=== PATIENT | male | born 1935 | race Caucasian/White ===

== ENCOUNTER 2020-07-10 08:52 | Inpatient (IN) | payer MEDICARE ==
[2020-07-10 09:35] VITALS: BP 105/76
[2020-07-10] MEDS ORDERED: QUET50TA5 PO (11:20)
[2020-07-10] MEDS ORDERED: MULT-237 PO (11:20)
[2020-07-10] MEDS ORDERED: LACT1CAP6 PO (11:20)
[2020-07-10] MEDS ORDERED: QUET25TA5 PO (11:20)
[2020-07-10] MEDS ORDERED: ACET500T68 PO ×2 (11:20)
[2020-07-10] MEDS ORDERED: FAMO-63 PO (11:20)
[2020-07-10] MEDS ORDERED: LIDO700A21 TP (11:20)
[2020-07-10] MEDS ORDERED: SENN1TAB62 PO (11:20)
[2020-07-10] MEDS ORDERED: DILT240T8 PO (11:20)
[2020-07-10] MEDS ORDERED: C.DIFF MED SCREEN BY RX. MC ONE (11:34)
[2020-07-10 14:41] VITALS: BP 116/71
[2020-07-10 17:22] LABS: BASO # 0.1 x10^3/uL (0.0-0.2); BASO % 1 % (0-3); EOS # 0.3 x10^3/uL (0.0-0.7); EOS % 5 % (0-3); HEMATOCRIT 40.1 % (39.0-53.0); HEMOGLOBIN 12.8 g/dL (13.0-17.5); LYMPH % 17 % (24-48); MEAN CORPUSCULAR HEMOGLOBIN 27 pg (25-35); MEAN CORPUSCULAR HGB CONC 32 g/dL (31-37); MEAN CORPUSCULAR VOLUME 86 fL (79-100); MONO # 0.5 x10^3/uL (0.0-1.1); MONO % 7 % (0-9); NEUT # 4.2 x10^3uL (1.8-7.7); NEUT % 70 % (31-73); PLATELET COUNT 212 x10^3/uL (140-400); RED BLOOD COUNT 4.69 x10^6/uL (4.30-5.70); RED CELL DISTRIBUTION WIDTH 14.1 % (11.5-14.5); WHITE BLOOD COUNT 6.1 x10^3/uL (4.0-11.0)
[2020-07-10 17:27] LABS: ALBUMIN 2.9 g/dL (3.4-5.0); ALBUMIN/GLOBULIN RATIO 0.6 (1.0-1.7); CALCIUM 9.5 mg/dL (8.5-10.1); CREATININE 1.2 mg/dL (0.7-1.3); MAGNESIUM 2.5 mg/dL (1.8-2.4); POTASSIUM 4.4 mmol/L (3.5-5.1); TOTAL BILIRUBIN 0.4 mg/dL (0.2-1.0); TOTAL PROTEIN 7.4 g/dL (6.4-8.2)
[2020-07-10] MEDS ORDERED: ACETAMINOPHEN 500 MG TABLET PO PRN (18:00)
[2020-07-10 19:38] VITALS: BP 111/83
[2020-07-10] MEDS ORDERED: ACETAMINOPHEN 500 MG TABLET PO SCH (21:00)
[2020-07-10] MEDS ORDERED: SENNOSIDES/DOCUSATE 8.6/50MG TABLET. PO SCH (21:00)
[2020-07-10] MEDS ORDERED: QUEtiapine 50 MG TABLET. PO SCH (21:00)
[2020-07-10] MEDS ORDERED: ENOXAPARIN ** NOTE DOSE ** SYRINGE SQ SCH (21:00)
[2020-07-10] MEDS ORDERED: LACTOBACILLUS RHAMNOSUS GG 1 CAPSULE. PO SCH (21:00)
--- NOTE | 2020-07-10 21:07 | PDOC ---
Exam Note: Wiliam Note: Please also refer to the separate dictated note~for this date of service dictated separately.~Patient seen individually. Discussed the patient with Nursing staff reviewed the chart.~Reviewed interim history and current functioning. Reviewed vital signs,~Labs/ Radiology~and current medications noted below. Continue current treatment with the changes noted in the dictated addendum note Assessment: Vital Signs/I&O: Vital Signs Date Time Temp Pulse Resp B/P (MAP) Pulse Ox O2 Delivery O2 Flow Rate FiO2 07/10/20 19:38 97.3 94 18 111/83 (92) 94 Room Air Labs: Laboratory Tests Test 07/10/20 10:20 07/10/20 16:58 Coronavirus (COVID-19)(PCR) Negative (NEGATIVE) White Blood Count 6.1 x10^3/uL (4.0-11.0) Red Blood Count 4.69 x10^6/uL (4.30-5.70) Hemoglobin 12.8 g/dL (13.0-17.5) L Hematocrit 40.1 % (39.0-53.0) Mean Corpuscular Volume 86 fL (79-100) Mean Corpuscular Hemoglobin 27 pg (25-35) Mean Corpuscular Hemoglobin Concent 32 g/dL (31-37) Red Cell Distribution Width 14.1 % (11.5-14.5) Platelet Count 212 x10^3/uL (140-400) Neutrophils (%) (Auto) 70 % (31-73) Lymphocytes (%) (Auto) 17 % (24-48) L Monocytes (%) (Auto) 7 % (0-9) Eosinophils (%) (Auto) 5 % (0-3) H Basophils (%) (Auto) 1 % (0-3) Neutrophils # (Auto) 4.2 x10^3uL (1.8-7.7) Lymphocytes # (Auto) 1.0 x10^3/uL (1.0-4.8) Monocytes # (Auto) 0.5 x10^3/uL (0.0-1.1) Eosinophils # (Auto) 0.3 x10^3/uL (0.0-0.7) Basophils # (Auto) 0.1 x10^3/uL (0.0-0.2) D-Dimer (Chani) 7.55 mg/L (0.00-0.50) H Sodium Level 133 mmol/L (136-145) L Potassium Level 4.4 mmol/L (3.5-5.1) Chloride Level 100 mmol/L (98-107) Carbon Dioxide Level 24 mmol/L (21-32) Anion Gap 9 (6-14) Blood Urea Nitrogen 16 mg/dL (8-26) Creatinine 1.2 mg/dL (0.7-1.3) Estimated GFR (Cockcroft-Gault) 58.0 BUN/Creatinine Ratio 13 (6-20) Glucose Level 112 mg/dL (70-99) H Calcium Level 9.5 mg/dL (8.5-10.1) Magnesium Level 2.5 mg/dL (1.8-2.4) H Total Bilirubin 0.4 mg/dL (0.2-1.0) Aspartate Amino Transferase (AST) 28 U/L (15-37) Alanine Aminotransferase (ALT) 31 U/L (16-63) Alkaline Phosphatase 109 U/L (46-116) Total Protein 7.4 g/dL (6.4-8.2) Albumin 2.9 g/dL (3.4-5.0) L Albumin/Globulin Ratio 0.6 (1.0-1.7) L Current Medications: Meds: Current Medications Medications (Trade) Dose Ordered Sig/Segnu Route PRN Reason Start Time Stop Time Status Last Admin Dose Admin Acetaminophen (Tylenol) 500 mg QHS PO 07/10/20 21:00 07/10/20 20:01 Quetiapine Fumarate (SEROquel) 50 mg QHS PO 07/10/20 21:00 07/10/20 20:01 Senna/Docusate Sodium (Senna Plus) 1 tab BID PO 07/10/20 21:00 07/10/20 20:01 Lactobacillus Rhamnosus (Culturelle) 1 cap BID PO 07/10/20 21:00 07/10/20 20:01 Enoxaparin Sodium (Lovenox 80mg Syringe) 70 mg Q12HR SQ 07/10/20 21:00 07/10/20 20:02 I have reviewed the current psychotropics carefully including drug interactions. Risk benefit ratio favors no change other than as noted in my dictated progress note. SHANE MCGOWAN MD Jul 10, 2020 21:07
[2020-07-10] MEDS ORDERED: OLANZapine 5 MG TABLET PO SCH (22:00)
[2020-07-10] MEDS ORDERED: OLANZapine 2.5 MG TABLET PO PRN (22:00)
[2020-07-10] MEDS ORDERED: OLANZapine 5 MG TABLET PO ONE (22:15)
[2020-07-10] MEDS ORDERED: OLAN2.5T3 PO (23:53)
[2020-07-10] MEDS ORDERED: ENOX40DI SQ (23:55)
[2020-07-11] MEDS ORDERED: CONTRAST GIVEN. MC PRN (00:30)
[2020-07-11] MEDS ORDERED: IOHEXOL 350 MG/ML 100 ML VIAL. IV ONE (01:00)
[2020-07-11] MEDS ORDERED: FAMOTIDINE 20 MG TABLET PO SCH (07:30)
[2020-07-11] MEDS ORDERED: PRENATAL MULTIVITAMIN TABLET. PO SCH (09:00)
[2020-07-11] MEDS ORDERED: LIDOCAINE (700MG/PATCH) PATCH. TP SCH (09:00)
[2020-07-11] MEDS ORDERED: QUEtiapine 25 MG TABLET. PO SCH (09:00)
[2020-07-11 12:22] LABS: THYROID STIM HORMONE (TSH) 1.024 uIU/mL (0.358-3.740)
[2020-07-12 02:06] LABS: HEMOGLOBIN A1C 5.9 % (4.8-5.6)
--- NOTE | 2020-07-12 07:43 | PDOC ---
Exam Note: Wiliam Note: This note is a late entry for 07/10/2020 covers elements not covered in my initial note. Subjective: The patient is an 83-year-old male referred by Dr. Rodriges after he was admitted from long-term facility on account of increase in agitation and aggression within the context of his significant major neurocognitive disorder Alzheimer vascular with delusion, depression. He had been resistant, refusing cares, verbally aggressive, disruptive, unmanageable and had failed outpatient interventions. He was accepted for the [facility] admitted to [address] [place] [address] till his Covid screen returns negative before transition to [facility]. Review of Systems: No CV, , pulmonary, eye system symptoms on review. Mental Status Exam: The patient was seen individually evening of 07/10 in room 123. Insight and judgment, recent and remote memory, attention and concentration, fund of knowledge is poor consistent with his diagnoses. He is oriented to himself. Laboratory Data: Reviewed. Impression: Major neurocognitive disorder Alzheimer, vascular with delusion, depression, behavioral disturbance. Anxiety disorder unspecified. Impulse control disorder unspecified. Plan: Continue the patient on his current psychotropics. Transition to [facility] once Covid screen is negative and he is medically stable. Assessment: Vital Signs/I&O: Vital Signs Date Time Temp Pulse Resp B/P (MAP) Pulse Ox O2 Delivery O2 Flow Rate FiO2 07/10/20 19:38 97.3 94 18 111/83 (92) 94 Room Air Current Medications: I have reviewed the current psychotropics carefully including drug interactions. Risk benefit ratio favors no change other than as noted in my dictated progress note. Diagnosis: Problems: (1) Major neurocognitive disorder (2) Dementia in Alzheimer's disease with delusions (3) Dementia in Alzheimer's disease with depression (4) Dementia of the Alzheimer's type with early onset with behavioral disturbance (5) Dementia, vascular, with delusions (6) Dementia, vascular, with depression (7) Anxiety disorder, unspecified (8) Impulse control disorder, unspecified SHANE MCGOWAN MD Jul 12, 2020 07:43
[2020-07-12] MEDS ORDERED: TRAZ-120 PO (12:24)
== END 2020-07-11 01:32 | DRG 640 ==
LOC: 1 SOUTH 09:25
PROVIDERS: ADMIT Internal Medicine; ATTEND Internal Medicine
DX: E87.1 Hypo-osmolality and hyponatremia (principal); E43 Unspecified severe protein-calorie malnutrition; F02.81 Dementia in other diseases classified elsewhere, unspecified severity, with behavioral disturbance; G30.9 Alzheimer's disease, unspecified; Z20.828 Contact with and (suspected) exposure to other viral communicable diseases; F01.50 Vascular dementia, unspecified severity, without behavioral disturbance, psychotic disturbance, mood disturbance, and anxiety; F41.9 Anxiety disorder, unspecified; F63.9 Impulse disorder, unspecified; F32.9 Major depressive disorder, single episode, unspecified
CPT/HCPCS: 36415; 80053; 80061; 82607; 83036; 83735; 84443; 85025; 85379; 86592; J1650; U0003

== ENCOUNTER 2020-07-11 01:35 | Inpatient (IN) | payer MEDICARE ==
[~2020-07-11] VITALS: Ht 162.6 cm; Wt 64.3 kg
[~2020-07-11 01:35] MED LIST: ACET500T68 PO; DILT240T8 PO; ENOX40DI SQ; FAMO-63 PO; LACT1CAP6 PO; LIDO700A21 TP; MULT-237 PO; OLAN2.5T3 PO; QUET25TA5 PO; QUET50TA5 PO; SENN1TAB62 PO
[2020-07-11 01:48] VITALS: BP 106/64
[2020-07-11] MEDS ORDERED: ACETAMINOPHEN 500 MG TABLET PO PRN (02:00)
[2020-07-11] MEDS ORDERED: MAG HYDROX/AL HYDROX/SIMETH 30 ML ORAL.SUSP PO PRN (02:15)
[2020-07-11] MEDS ORDERED: METHYL SALICYLATE/MENTHOL TOPICAL OINTMENT 57GM TUBE. TP PRN (02:15)
[2020-07-11] MEDS ORDERED: ACETAMINOPHEN 325 MG TABLET PO PRN (02:15)
[2020-07-11] MEDS ORDERED: MAGNESIUM HYDROXIDE 2,400 MG/30 ML ORAL.SUSP. PO PRN (02:15)
[2020-07-11] MEDS ORDERED: ENOXAPARIN 40 MG/0.4 ML SYRINGE. SQ SCH (02:15)
[2020-07-11] MEDS ORDERED: ANTI-COAG MONITOR BY PHARMACY. MC PRN (02:15)
[2020-07-11 06:00] VITALS: BP 137/71
[2020-07-11] MEDS: LACTOBACILLUS RHAMNOSUS GG 1 CAPSULE. PO SCH ×2 (08:04→20:04)
[2020-07-11] MEDS: FAMOTIDINE 20 MG TABLET PO SCH ×2 (08:04→17:07)
[2020-07-11] MEDS: MULTIVITAMIN with MINERAL TABLET. PO SCH (08:04)
[2020-07-11] MEDS: SENNOSIDES/DOCUSATE 8.6/50MG TABLET. PO SCH ×2 (08:05→20:05)
[2020-07-11] MEDS: QUEtiapine 25 MG TABLET. PO SCH ×2 (08:05→12:33)
[2020-07-11] MEDS: LIDOCAINE (700MG/PATCH) PATCH. TP SCH (08:05)
[2020-07-11] MEDS ORDERED: ENOXAPARIN ** NOTE DOSE ** SYRINGE SQ SCH (09:00)
[2020-07-11 09:25] LABS: BASO % 1 % (0-3); EOS # 0.3 x10^3/uL (0.0-0.7); EOS % 6 % (0-3); HEMATOCRIT 38.9 % (39.0-53.0); HEMOGLOBIN 12.5 g/dL (13.0-17.5); LYMPH # 0.9 x10^3/uL (1.0-4.8); LYMPH % 17 % (24-48); MEAN CORPUSCULAR HEMOGLOBIN 27 pg (25-35); MEAN CORPUSCULAR HGB CONC 32 g/dL (31-37); MEAN CORPUSCULAR VOLUME 85 fL (79-100); MONO # 0.4 x10^3/uL (0.0-1.1); MONO % 8 % (0-9); NEUT # 3.6 x10^3uL (1.8-7.7); NEUT % 68 % (31-73); PLATELET COUNT 214 x10^3/uL (140-400); RED BLOOD COUNT 4.59 x10^6/uL (4.30-5.70); WHITE BLOOD COUNT 5.3 x10^3/uL (4.0-11.0)
[2020-07-11 09:53] LABS: ALBUMIN 2.8 g/dL (3.4-5.0); ALBUMIN/GLOBULIN RATIO 0.6 (1.0-1.7); CALCIUM 9.7 mg/dL (8.5-10.1); CREATININE 1.3 mg/dL (0.7-1.3); GFR 52.9; MAGNESIUM 2.6 mg/dL (1.8-2.4); TOTAL BILIRUBIN 0.3 mg/dL (0.2-1.0); TOTAL PROTEIN 7.5 g/dL (6.4-8.2)
[2020-07-11 12:32] LABS: THYROID STIM HORMONE (TSH) 1.065 uIU/mL (0.358-3.740)
--- NOTE | 2020-07-11 12:37 | EKG ---
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
[2020-07-11 14:35] VITALS: BP 118/73
[2020-07-11] MEDS ORDERED: traZODone 50 MG TABLET. PO PRN (15:45)
--- NOTE | 2020-07-11 20:55 | PDOC ---
Exam Note: Wiliam Note: Please also refer to the separate dictated note~for this date of service dictated separately.~Patient seen individually. Discussed the patient with Nursing staff reviewed the chart.~Reviewed interim history and current functioning. Reviewed vital signs,~Labs/ Radiology~and current medications noted below. Continue current treatment with the changes noted in the dictated addendum note Assessment: Vital Signs/I&O: Vital Signs Date Time Temp Pulse Resp B/P (MAP) Pulse Ox O2 Delivery O2 Flow Rate FiO2 07/11/20 14:35 97.8 100 19 118/73 (88) 92 07/11/20 06:00 Room Air Labs: Laboratory Tests Test 07/11/20 09:10 White Blood Count 5.3 x10^3/uL (4.0-11.0) Red Blood Count 4.59 x10^6/uL (4.30-5.70) Hemoglobin 12.5 g/dL (13.0-17.5) L Hematocrit 38.9 % (39.0-53.0) L Mean Corpuscular Volume 85 fL (79-100) Mean Corpuscular Hemoglobin 27 pg (25-35) Mean Corpuscular Hemoglobin Concent 32 g/dL (31-37) Red Cell Distribution Width 14.0 % (11.5-14.5) Platelet Count 214 x10^3/uL (140-400) Neutrophils (%) (Auto) 68 % (31-73) Lymphocytes (%) (Auto) 17 % (24-48) L Monocytes (%) (Auto) 8 % (0-9) Eosinophils (%) (Auto) 6 % (0-3) H Basophils (%) (Auto) 1 % (0-3) Neutrophils # (Auto) 3.6 x10^3uL (1.8-7.7) Lymphocytes # (Auto) 0.9 x10^3/uL (1.0-4.8) L Monocytes # (Auto) 0.4 x10^3/uL (0.0-1.1) Eosinophils # (Auto) 0.3 x10^3/uL (0.0-0.7) Basophils # (Auto) 0.0 x10^3/uL (0.0-0.2) Sodium Level 136 mmol/L (136-145) Potassium Level 4.0 mmol/L (3.5-5.1) Chloride Level 102 mmol/L (98-107) Carbon Dioxide Level 25 mmol/L (21-32) Anion Gap 9 (6-14) Blood Urea Nitrogen 14 mg/dL (8-26) Creatinine 1.3 mg/dL (0.7-1.3) Estimated GFR (Cockcroft-Gault) 52.9 BUN/Creatinine Ratio 11 (6-20) Glucose Level 100 mg/dL (70-99) H Calcium Level 9.7 mg/dL (8.5-10.1) Magnesium Level 2.6 mg/dL (1.8-2.4) H Iron Level 31 ug/dL (65-175) L Total Iron Binding Capacity 168 ug/dL (250-450) L Iron Saturation 18 % (15-34) Total Bilirubin 0.3 mg/dL (0.2-1.0) Aspartate Amino Transferase (AST) 28 U/L (15-37) Alanine Aminotransferase (ALT) 29 U/L (16-63) Alkaline Phosphatase 111 U/L (46-116) Total Protein 7.5 g/dL (6.4-8.2) Albumin 2.8 g/dL (3.4-5.0) L Albumin/Globulin Ratio 0.6 (1.0-1.7) L Triglycerides Level 113 mg/dL (0-150) Cholesterol Level 149 mg/dL (0-200) LDL Cholesterol, Calculated 92 mg/dL (0-100) VLDL Cholesterol, Calculated 22 mg/dL (0-40) Non-HDL Cholesterol Calculated 114 mg/dL (0-129) HDL Cholesterol 35 mg/dL (40-60) L Cholesterol/HDL Ratio 4.0 Thyroid Stimulating Hormone (TSH) 1.065 uIU/mL (0.358-3.740) Current Medications: Meds: Current Medications Medications (Trade) Dose Ordered Sig/Segun Route PRN Reason Start Time Stop Time Status Last Admin Dose Admin Olanzapine (ZyPREXA ZYDIS) 2.5 mg PRN Q2HR PRN PO ANXIETY / AGITATION 07/11/20 02:00 07/11/20 20:24 Acetaminophen (Tylenol) 500 mg QHS PO 07/11/20 21:00 07/11/20 20:05 Famotidine (Pepcid) 20 mg BIDBFRMEAL PO 07/11/20 07:30 07/11/20 17:07 Lidocaine (Lidoderm) 1 patch DAILY TP 07/11/20 09:00 07/11/20 08:05 Senna/Docusate Sodium (Senna Plus) 1 tab BID PO 07/11/20 09:00 07/11/20 20:05 Diltiazem HCl (Cardizem 24hr Cd) 240 mg DAILY PO 07/11/20 09:00 07/11/20 08:05 Lactobacillus Rhamnosus (Culturelle) 1 cap BID PO 07/11/20 09:00 07/11/20 20:04 Multivitamins/ Calcium (Thera-M Plus) 1 tab DAILY PO 07/11/20 09:00 07/11/20 08:04 Quetiapine Fumarate (SEROquel) 25 mg BID92 PO 07/11/20 09:00 07/11/20 15:51 DC 07/11/20 12:33 Miscellaneous ([facility] Removal) [facility] 07/11/[facility] 21:00 07/11/20 20:04 I have reviewed the current psychotropics carefully including drug interactions. Risk benefit ratio favors no change other than as noted in my dictated progress note. SHANE MCGOWAN MD Jul 11, 2020 20:55
[2020-07-11] MEDS ORDERED: ACETAMINOPHEN 500 MG TABLET PO SCH (21:00)
[2020-07-11] MEDS ORDERED: QUEtiapine 50 MG TABLET. PO SCH (21:00)
[2020-07-11] MEDS ORDERED: PATCH REMOVAL. MC SCH (21:00)
[2020-07-11] MEDS ORDERED: IOHEXOL 350 MG/ML 100 ML VIAL. IV ONE (22:00)
[2020-07-11] MEDS ORDERED: CONTRAST GIVEN. MC PRN (22:00)
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
[2020-07-12 05:37] LABS: THYROXINE 6.8 ug/dL (4.5-12.0)
[2020-07-12 06:00] VITALS: BP 112/59
[2020-07-12] MEDS: FAMOTIDINE 20 MG TABLET PO SCH ×3 (07:30→16:30)
[2020-07-12] MEDS: LIDOCAINE (700MG/PATCH) PATCH. TP SCH (07:32)
[2020-07-12] MEDS: SENNOSIDES/DOCUSATE 8.6/50MG TABLET. PO SCH ×2 (09:00→09:14)
[2020-07-12] MEDS: MULTIVITAMIN with MINERAL TABLET. PO SCH ×2 (09:00→09:14)
[2020-07-12] MEDS: LACTOBACILLUS RHAMNOSUS GG 1 CAPSULE. PO SCH ×2 (09:00→09:14)
[2020-07-12 09:15] LABS: BILIRUBIN,URINE NEG (NEG); CLARITY,URINE CLEAR; COLOR,URINE YELLOW; GLUCOSE,URINE NEG (NEG); NITRITE,URINE NEG (NEG); UROBILINOGEN,URINE 0.2 mg/dL (0.2 mg/dL)
[2020-07-12 09:16] LABS: BACTERIA,URINE 0 /HPF (0-FEW); RBC,URINE 0 /HPF (0-2); SQUAMOUS EPITHELIAL CELL,UR FEW /LPF; WBC,URINE 0 /HPF (0-4)
--- NOTE | 2020-07-12 12:04 | RAD ---
EXAM: CT chest with contrast - pulmonary embolus protocol CLINICAL HISTORY: cough, elevated D-Dimer COMPARISON: None. TECHNIQUE: CT of the chest following the administration of intravenous contrast during the pulmonary arterial phase. Axial, coronal and sagittal reformatted images were generated including MIP images. ---PQRS compliance statement - One or more of the following individualized dose reduction techniques were utilized for this study: 1. Automated exposure control 2. Adjustment of the mA and/or kV according to patient size 3. Use of iterative reconstruction technique--- FINDINGS: CHEST: Diagnostic quality: Adequate contrast bolus although motion artifact limits evaluation particularly in the peripheries and lung bases.. Pulmonary emboli: No pulmonary emboli to the level of the proximal segmental branches. More peripheral vessels are not well assessed. Right heart strain: None Pulmonary arteries: Normal in caliber. Heart is not enlarged. Coronary artery calcifications are seen. No pericardial effusion. Trace bilateral pleural effusions. No axillary lymphadenopathy. Precarinal lymph node measures 1.2 x 1.1 cm. Moderate to large left pneumothorax with flattening of the left hemidiaphragm, without mediastinal shift. Advanced emphysematous changes bilaterally. Linear and bandlike opacities at dependent left lower lobe likely scarring/atelectasis. Vague ground glass opacities right lower lobe. 7 mm right upper lobe lung nodule (series 3 image 23) Visualized Upper abdomen: Mild left adrenal gland thickening. Liver is mildly nodular in contour, possibly cirrhosis. Bones: No aggressive osseous lesion is seen. Multiple degenerative changes of the spine are noted. IMPRESSION: 1. Moderate to large left pneumothorax 2. No definite pulmonary embolus the level of the proximal subsegmental branches, more peripheral vessels are not well assessed. 3. Bilateral emphysematous change. Groundglass opacity in the left lower lobe and solid nodule in the right upper lobe, recommend follow-up CT in 6 months. 4. Borderline enlarged precarinal lymph node may be reactive. 5. Liver is mildly nodular in contour, likely cirrhosis. Findings of moderate to large left pneumothorax discussed with patient's nurse Tobias at 11:52 AM 07/12/2020 who would notify the patient's physician. FOR INTERNAL CODING PURPOSES RESULT CODE: (C) Electronically signed by: Paul Herrera MD (07/12/2020 12:01 PM) [facility]
[2020-07-12] MEDS ORDERED: TRAZ-120 PO (12:24)
[2020-07-12 15:54] VITALS: BP 104/71
--- NOTE | 2020-07-12 20:31 | PDOC ---
Exam Note: Wiliam Note: Please also refer to the separate dictated note~for this date of service dictated separately.~Patient seen individually. Discussed the patient with Nursing staff reviewed the chart.~Reviewed interim history and current functioning. Reviewed vital signs,~Labs/ Radiology~and current medications noted below. Continue current treatment with the changes noted in the dictated addendum note Assessment: Vital Signs/I&O: Vital Signs Date Time Temp Pulse Resp B/P (MAP) Pulse Ox O2 Delivery O2 Flow Rate FiO2 07/12/20 15:54 97.9 94 20 104/71 (82) 94 Room Air I & O 07/11/20 07/11/20 07/12/20 15:00 23:00 07:00 Intake Total 600 ml Balance 600 ml Labs: Laboratory Tests Test 07/12/20 07:20 Urine Collection Type Unknown Urine Color Yellow Urine Clarity Clear Urine pH 7.0 Urine Specific [place] 1.020 Urine Protein Neg (NEG-TRACE) Urine Glucose (UA) Neg mg/dL (NEG) Urine Ketones (Stick) Neg mg/dL (NEG) Urine Blood Neg (NEG) Urine Nitrite Neg (NEG) Urine Bilirubin Neg (NEG) Urine Urobilinogen Dipstick 0.2 mg/dL (0.2 mg/dL) Urine Leukocyte Esterase Neg (NEG) Urine RBC 0 /HPF (0-2) Urine WBC 0 /HPF (0-4) Urine Squamous Epithelial Cells Few /LPF Urine Transitional Epithelial Cells Occ /LPF Urine Bacteria 0 /HPF (0-FEW) Current Medications: Meds: Current Medications Medications (Trade) Dose Ordered Sig/Segun Route PRN Reason Start Time Stop Time Status Last Admin Dose Admin Acetaminophen (Tylenol) 500 mg QHS PO 07/11/20 21:00 07/12/20 18:49 DC 07/11/20 20:05 Miscellaneous (Lidoderm Patch Removal) 1 ea QHS [facility] 07/11/20 21:00 07/12/20 18:49 DC 07/11/20 20:04 Iohexol (Omnipaque 350 Mg/ml) 75 ml 1X ONCE IV 07/11/20 22:00 07/11/20 22:01 DC 07/11/20 22:07 I have reviewed the current psychotropics carefully including drug interactions. Risk benefit ratio favors no change other than as noted in my dictated progress note. Diagnosis: Problems: (1) Impulse control disorder, unspecified (2) Anxiety disorder, unspecified (3) Dementia, vascular, with depression (4) Dementia, vascular, with delusions (5) Dementia in Alzheimer's disease with depression (6) Dementia in Alzheimer's disease with delusions (7) Dementia of the Alzheimer's type with early onset with behavioral disturbance (8) Major neurocognitive disorder SHANE MCGOWAN MD Jul 12, 2020 20:31
--- NOTE | 2020-07-13 08:01 | PDOC ---
Exam Note: Wiliam Note: This note is a late entry for 07/12/2020 covers elements not covered in my initial note. Subjective: The patient was seen face to face in the evening of 07/12/2020 with Shane CEBALLOS. Discussed with nursing staff, reviewed the chart. The patient did not sleep at all last night. He has had a left pneumothorax. He is being transferred to [facility] per Dr. Rodriges. He has been in the [facility]. Review of Systems: No CV, , pulmonary, eye system symptoms on review. Mental Status Exam: The patient is oriented to himself. Insight and judgment, recent and remote memory, attention and concentration, fund of knowledge is poor consistent with his diagnoses. Laboratory Data: Reviewed. Impression: Major neurocognitive disorder Alzheimer, vascular with delusion, depression, behavioral disturbance. Anxiety disorder unspecified. Impulse control disorder unspecified. Plan: No change from initial note. Make further adjustments as clinically indicated. He will be transferred to [facility] later today for his pneumothorax. Assessment: Vital Signs/I&O: Vital Signs Date Time Temp Pulse Resp B/P (MAP) Pulse Ox O2 Delivery O2 Flow Rate FiO2 07/12/20 15:54 97.9 94 20 104/71 (82) 94 Room Air I & O 07/12/20 07/12/20 07/13/20 15:00 23:00 07:00 Intake Total 0 ml 180 ml Balance 0 ml 180 ml Current Medications: I have reviewed the current psychotropics carefully including drug interactions. Risk benefit ratio favors no change other than as noted in my dictated progress note. Diagnosis: Problems: (1) Impulse control disorder, unspecified (2) Anxiety disorder, unspecified (3) Dementia, vascular, with depression (4) Dementia, vascular, with delusions (5) Dementia in Alzheimer's disease with depression (6) Dementia in Alzheimer's disease with delusions (7) Dementia of the Alzheimer's type with early onset with behavioral disturbance (8) Major neurocognitive disorder SHANE MCGOWAN MD Jul 13, 2020 08:01
--- NOTE | 2020-07-13 22:56 | DS ---
DATE OF DISCHARGE: 07/12/2020 DISCHARGE SUMMARY/PSYCHIATRIC PROGRESS NOTE This late entry date of service 07/12/2020 covers elements not covered in my initial note. REASON FOR ADMISSION: Please refer to the admission history for details. Briefly, the patient is an 84-year-old male who initially referred to us from [facility] on account of worsening confusion, consequent to his major neurocognitive disorder, Alzheimer, vascular with delusion, depression, behavioral disturbance; anxiety disorder, unspecified; impulse control disorder, unspecified. He was on the med/surg unit till he was COVID screened negative, then transitioned to our unit on 07/11/2020 for psychiatric stabilization. He had a drop in his appetite, 20-pound weight loss, marked insomnia, disrobing, wandering the unit, verbally aggressive, threatening to break the arm of the PORTABLE SAWYER, became combative with hitting, choking and swinging arms. SIGNIFICANT FINDINGS AND CLINICAL COURSE: Following admission, the patient was seen daily during his brief hospitalization by myself from a psychiatric standpoint, medical followup with Dr. Rodriges/Dr. Almanza. The related that approximately 2 weeks back, the patient had a spontaneous pneumothorax and since that his mentation has been significantly impaired with significant short-term memory deficits, agitation, delusions, aggression. He spent overnight and then on 07/12/2020, he was again found to have pneumothorax and transferred to [facility] per Dr. Rodriges for a pulmonary consult and specific interventions. REVIEW OF SYSTEMS: Prior to discharge, 07/12/2020, no CV, , pulmonary, eye, ENT system symptoms on review. MENTAL STATUS EXAM: Oriented to himself. Insight, judgment, recent and remote memory, attention, concentration, fund of knowledge poor, consistent with his diagnosis. FINAL DIAGNOSES: Major neurocognitive disorder, Alzheimer, vascular with delusion, depression, behavioral disturbance; anxiety disorder, unspecified; impulse control disorder, unspecified; possible spontaneous pneumothorax. Rest unchanged from admission. DISCHARGE MEDICATIONS: Please refer to the MRAD. We would be happy to reassess him to return to our unit if he meets criteria at that time once he has been medically stabilized at [facility]. Time for discharge day management greater than 30 minutes. MAN Dolores MCGOWAN MD DR: BC/pasquale JOB#: [id number] / [id number]
== END 2020-07-12 18:48 | disposition short-term general hospital (02) | DRG 56 ==
LOC: GEROPSY 01:35
PROVIDERS: ADMIT Psychiatry & Neurology Psychiatry; ATTEND Psychiatry & Neurology Psychiatry
DX: G30.9 Alzheimer's disease, unspecified (principal); E43 Unspecified severe protein-calorie malnutrition; F01.51 Vascular dementia, unspecified severity, with behavioral disturbance; F02.81 Dementia in other diseases classified elsewhere, unspecified severity, with behavioral disturbance; J93.83 Other pneumothorax; F32.9 Major depressive disorder, single episode, unspecified; F41.9 Anxiety disorder, unspecified; Z96.653 Presence of artificial knee joint, bilateral; F63.9 Impulse disorder, unspecified; G47.00 Insomnia, unspecified; J43.9 Emphysema, unspecified; K21.9 Gastro-esophageal reflux disease without esophagitis; Z66 Do not resuscitate; Z80.1 Family history of malignant neoplasm of trachea, bronchus and lung; Z82.3 Family history of stroke; Z82.49 Family history of ischemic heart disease and other diseases of the circulatory system; Z87.891 Personal history of nicotine dependence; Z91.83 Wandering in diseases classified elsewhere; Z68.24 Body mass index [BMI] 24.0-24.9, adult
CPT/HCPCS: 36415; 71275; 80053; 80061; 81001; 82306; 82607; 83540; 83550; 83735; 84436; 84443; 84480; 85025; 86592; 93005; 99285; Q9967

== ENCOUNTER 2020-07-14 12:15 | Inpatient (IN) | payer MEDICARE ==
[~2020-07-14] VITALS: Ht 162.6 cm; Wt 77.4 kg
[~2020-07-14 12:15] MED LIST changes: +TRAZ-120 PO
[2020-07-14] MEDS ORDERED: ACETAMINOPHEN 500 MG TABLET PO PRN (12:45)
[2020-07-14] MEDS ORDERED: OLANZapine 2.5 MG TABLET PO PRN (12:45)
[2020-07-14] MEDS ORDERED: MAGNESIUM HYDROXIDE 2,400 MG/30 ML ORAL.SUSP. PO PRN (13:15)
[2020-07-14] MEDS ORDERED: MAG HYDROX/AL HYDROX/SIMETH 30 ML ORAL.SUSP PO PRN (13:15)
[2020-07-14 16:30] VITALS: BP 101/69
[2020-07-14 16:51] LABS: BASO % 0 % (0-3); EOS % 0 % (0-3); HEMATOCRIT 40.6 % (39.0-53.0); HEMOGLOBIN 13.1 g/dL (13.0-17.5); LYMPH # 0.7 x10^3/uL (1.0-4.8); LYMPH % 7 % (24-48); MEAN CORPUSCULAR HEMOGLOBIN 28 pg (25-35); MEAN CORPUSCULAR HGB CONC 32 g/dL (31-37); MEAN CORPUSCULAR VOLUME 85 fL (79-100); MONO # 0.5 x10^3/uL (0.0-1.1); MONO % 5 % (0-9); NEUT # 8.4 x10^3uL (1.8-7.7); NEUT % 87 % (31-73); PLATELET COUNT 222 x10^3/uL (140-400); RED BLOOD COUNT 4.78 x10^6/uL (4.30-5.70); WHITE BLOOD COUNT 9.7 x10^3/uL (4.0-11.0)
--- NOTE | 2020-07-14 16:59 | EKG ---
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
[2020-07-14 17:10] LABS: ALBUMIN 2.9 g/dL (3.4-5.0); ALBUMIN/GLOBULIN RATIO 0.6 (1.0-1.7); CALCIUM 9.2 mg/dL (8.5-10.1); CREATININE 1.5 mg/dL (0.7-1.3); GFR 44.8; MAGNESIUM 2.3 mg/dL (1.8-2.4); POTASSIUM 4.4 mmol/L (3.5-5.1); TOTAL BILIRUBIN 0.5 mg/dL (0.2-1.0); TOTAL PROTEIN 7.7 g/dL (6.4-8.2)
[2020-07-14] MEDS ORDERED: SENNOSIDES/DOCUSATE 8.6/50MG TABLET. PO PRN (19:30)
--- NOTE | 2020-07-14 20:54 | PDOC ---
Exam Note: Wiliam Note: Please also refer to the separate dictated note~for this date of service dictated separately.~Patient seen individually. Discussed the patient with Nursing staff reviewed the chart.~Reviewed interim history and current functioning. Reviewed vital signs,~Labs/ Radiology~and current medications noted below. Continue current treatment with the changes noted in the dictated addendum note Assessment: Vital Signs/I&O: Vital Signs Date Time Temp Pulse Resp B/P (MAP) Pulse Ox O2 Delivery O2 Flow Rate FiO2 07/14/20 16:30 98.4 69 18 101/69 (80) 96 Labs: Laboratory Tests Test 07/14/20 14:36 White Blood Count 9.7 x10^3/uL (4.0-11.0) Red Blood Count 4.78 x10^6/uL (4.30-5.70) Hemoglobin 13.1 g/dL (13.0-17.5) Hematocrit 40.6 % (39.0-53.0) Mean Corpuscular Volume 85 fL (79-100) Mean Corpuscular Hemoglobin 28 pg (25-35) Mean Corpuscular Hemoglobin Concent 32 g/dL (31-37) Red Cell Distribution Width 14.0 % (11.5-14.5) Platelet Count 222 x10^3/uL (140-400) Neutrophils (%) (Auto) 87 % (31-73) H Lymphocytes (%) (Auto) 7 % (24-48) L Monocytes (%) (Auto) 5 % (0-9) Eosinophils (%) (Auto) 0 % (0-3) Basophils (%) (Auto) 0 % (0-3) Neutrophils # (Auto) 8.4 x10^3uL (1.8-7.7) H Lymphocytes # (Auto) 0.7 x10^3/uL (1.0-4.8) L Monocytes # (Auto) 0.5 x10^3/uL (0.0-1.1) Eosinophils # (Auto) 0.0 x10^3/uL (0.0-0.7) Basophils # (Auto) 0.0 x10^3/uL (0.0-0.2) D-Dimer (Chani) > 19.00 mg/L (0.00-0.50) H Sodium Level 136 mmol/L (136-145) Potassium Level 4.4 mmol/L (3.5-5.1) Chloride Level 103 mmol/L (98-107) Carbon Dioxide Level 25 mmol/L (21-32) Anion Gap 8 (6-14) Blood Urea Nitrogen 13 mg/dL (8-26) Creatinine 1.5 mg/dL (0.7-1.3) H Estimated GFR (Cockcroft-Gault) 44.8 BUN/Creatinine Ratio 9 (6-20) Glucose Level 115 mg/dL (70-99) H Calcium Level 9.2 mg/dL (8.5-10.1) Magnesium Level 2.3 mg/dL (1.8-2.4) Total Bilirubin 0.5 mg/dL (0.2-1.0) Aspartate Amino Transferase (AST) 29 U/L (15-37) Alanine Aminotransferase (ALT) 30 U/L (16-63) Alkaline Phosphatase 117 U/L (46-116) H Total Protein 7.7 g/dL (6.4-8.2) Albumin 2.9 g/dL (3.4-5.0) L Albumin/Globulin Ratio 0.6 (1.0-1.7) L Current Medications: I have reviewed the current psychotropics carefully including drug interactions. Risk benefit ratio favors no change other than as noted in my dictated progress note. Diagnosis: Problems: (1) Impulse control disorder, unspecified (2) Anxiety disorder, unspecified (3) Dementia, vascular, with depression (4) Dementia, vascular, with delusions (5) Dementia in Alzheimer's disease with depression (6) Dementia in Alzheimer's disease with delusions (7) Dementia of the Alzheimer's type with early onset with behavioral disturbance (8) Major neurocognitive disorder SHANE MCGOWAN MD Jul 14, 2020 20:54
[2020-07-14] MEDS: ACETAMINOPHEN 500 MG TABLET PO SCH (21:09)
[2020-07-14] MEDS: LACTOBACILLUS RHAMNOSUS GG 1 CAPSULE. PO SCH (21:09)
[2020-07-14] MEDS: FAMOTIDINE 20 MG TABLET PO SCH (21:09)
[2020-07-15 06:16] LABS: THYROXINE 6.3 ug/dL (4.5-12.0)
[2020-07-15 07:17] VITALS: BP 133/82
[2020-07-15] MEDS: LIDOCAINE (700MG/PATCH) PATCH. TP SCH (09:00)
[2020-07-15] MEDS: FAMOTIDINE 20 MG TABLET PO SCH ×2 (09:00→21:28)
[2020-07-15] MEDS: LACTOBACILLUS RHAMNOSUS GG 1 CAPSULE. PO SCH ×2 (09:04→21:28)
[2020-07-15] MEDS: MULTIVITAMIN with MINERAL TABLET. PO SCH (09:04)
--- NOTE | 2020-07-15 14:49 | HP ---
ADMIT DATE: 07/14/2020 PSYCHIATRIC ADMISSION HISTORY/EVALUATION This is a late entry, date of service 07/14/2020 covers elements not covered in my initial note. IDENTIFYING DATA: The patient is an 84-year-old male who returns back to us from [facility] after he was referred there for spontaneous pneumothorax. Reportedly, this was not confirmed and he returns back to us since he remains paranoid, confused, agitated. He was initially referred [facility] from [facility] on account of marked agitation, cursing at staff, pulling leads himself. He was pacing, disrobing, uncooperative, resistive with cares. He has had sleep and appetite changes, marked paranoia. No active suicidal or homicidal ideation. No clear history of bipolar disorder. PAST PSYCHIATRIC HISTORY: As above. PAST MEDICAL HISTORY: Dysphagia, emphysema, GERD, aspiration pneumonia, COPD. CODE STATUS: DNR. Ambulates, walks ad yisel. DIET: Pureed read honey thickened liquids. ACCU-CHEKS: None. CURRENT PSYCHOTROPICS: Zyprexa p.r.n., trazodone p.r.n. FAMILY HISTORY: Noncontributory. SOCIAL HISTORY: No history of alcohol, drug abuse, physical, sexual or elder abuse. He is not known to be a perpetrator. REACTION TO HOSPITALIZATION: The patient oblivious. REVIEW OF SYSTEMS: No CV, , pulmonary, eye, ENT system symptoms on review. MENTAL STATUS EXAMINATION: The patient was seen individually in evening of 07/14/2020. He is oriented to himself. Insight, judgment, recent and remote memory, attention, concentration, fund of knowledge poor, consistent with his diagnosis. IMPRESSION: Major neurocognitive disorder, Alzheimer, vascular with delusion; depression, behavioral disturbance; anxiety disorder, unspecified; impulse control disorder, unspecified; delirium, unspecified since information from his indicates that the patient was quite high functioning until a few weeks back when he developed a spontaneous pneumothorax and has never been the same since then. Encephalopathy. Rest as above. PLAN: Admit to Geropsychiatry Unit at [facility]. I will see the patient daily individually from a psychiatric standpoint. Medical followup with Dr. Rodriges/Dr. Almanza. Continue current psychotropics. Observe baseline, adjust further as clinically indicated. ESTIMATED LENGTH OF STAY: 10-12 days. DISPOSITION: Plans back to long-term when stable. SHANE MCGOWAN MD DR: BC/pasquale JOB#: [id number] / [id number]
[2020-07-15] MEDS: ACETAMINOPHEN 325 MG TABLET PO PRN (15:30)
[2020-07-15 15:35] LABS: THYROID STIM HORMONE (TSH) 1.03 uIU/mL (0.358-3.740)
[2020-07-15 16:41] VITALS: BP 107/63
--- NOTE | 2020-07-15 20:48 | PDOC ---
Exam Note: Wiliam Note: Please also refer to the separate dictated note~for this date of service dictated separately.~Patient seen individually. Discussed the patient with Nursing staff reviewed the chart.~Reviewed interim history and current functioning. Reviewed vital signs,~Labs/ Radiology~and current medications noted below. Continue current treatment with the changes noted in the dictated addendum note Assessment: Vital Signs/I&O: Vital Signs Date Time Temp Pulse Resp B/P (MAP) Pulse Ox O2 Delivery O2 Flow Rate FiO2 07/15/20 16:41 98.0 108 16 107/63 (78) 93 I & O 07/14/20 07/14/20 07/15/20 15:00 23:00 07:00 Intake Total 120 ml 120 ml Balance 120 ml 120 ml Current Medications: Meds: Current Medications Medications (Trade) Dose Ordered Sig/Segun Route PRN Reason Start Time Stop Time Status Last Admin Dose Admin Acetaminophen (Tylenol) 500 mg QHS PO 07/14/20 21:00 07/14/20 21:09 Lidocaine (Lidoderm) 1 patch DAILY TP 07/15/20 09:00 07/15/20 09:00 Diltiazem HCl (Cardizem 24hr Cd) 240 mg DAILY PO 07/15/20 09:00 07/15/20 09:00 Lactobacillus Rhamnosus (Culturelle) 1 cap BID PO 07/14/20 21:00 07/15/20 09:04 Multivitamins/ Calcium (Thera-M Plus) 1 tab DAILY PO 07/15/20 09:00 07/15/20 09:04 Famotidine (Pepcid) 20 mg BID PO 07/14/20 21:00 07/15/20 09:00 I have reviewed the current psychotropics carefully including drug interactions. Risk benefit ratio favors no change other than as noted in my dictated progress note. Diagnosis: Problems: (1) Impulse control disorder, unspecified (2) Anxiety disorder, unspecified (3) Dementia, vascular, with depression (4) Dementia, vascular, with delusions (5) Dementia in Alzheimer's disease with depression (6) Dementia in Alzheimer's disease with delusions (7) Dementia of the Alzheimer's type with early onset with behavioral disturbance (8) Major neurocognitive disorder SHANE MCGOWAN MD Jul 15, 2020 20:48
[2020-07-15] MEDS: ACETAMINOPHEN 500 MG TABLET PO SCH (21:28)
[2020-07-15] MEDS: QUEtiapine 25 MG TABLET. PO SCH (21:29)
[2020-07-15] MEDS: traZODone 50 MG TABLET. PO PRN (23:03)
[2020-07-16 05:59] VITALS: BP 134/85
[2020-07-16] MEDS: LACTOBACILLUS RHAMNOSUS GG 1 CAPSULE. PO SCH ×2 (08:37→21:20)
[2020-07-16] MEDS: QUEtiapine 25 MG TABLET. PO SCH ×2 (08:38→17:23)
[2020-07-16] MEDS: FAMOTIDINE 20 MG TABLET PO SCH ×2 (08:38→21:20)
[2020-07-16] MEDS: MULTIVITAMIN with MINERAL TABLET. PO SCH (08:39)
[2020-07-16] MEDS: LIDOCAINE (700MG/PATCH) PATCH. TP SCH (08:40)
[2020-07-16 16:30] VITALS: BP 115/73
--- NOTE | 2020-07-16 20:48 | PDOC ---
Exam Note: Wiliam Note: Please also refer to the separate dictated note~for this date of service dictated separately.~Patient seen individually. Discussed the patient with Nursing staff reviewed the chart.~Reviewed interim history and current functioning. Reviewed vital signs,~Labs/ Radiology~and current medications noted below. Continue current treatment with the changes noted in the dictated addendum note Assessment: Vital Signs/I&O: Vital Signs Date Time Temp Pulse Resp B/P (MAP) Pulse Ox O2 Delivery O2 Flow Rate FiO2 07/16/20 16:30 98.1 105 18 115/73 (87) 98 07/16/20 05:59 Room Air I & O 07/15/20 07/15/20 07/16/20 14:59 22:59 06:59 Intake Total 650 ml 360 ml 120 ml Balance 650 ml 360 ml 120 ml Current Medications: I have reviewed the current psychotropics carefully including drug interactions. Risk benefit ratio favors no change other than as noted in my dictated progress note. Diagnosis: Problems: (1) Impulse control disorder, unspecified (2) Anxiety disorder, unspecified (3) Dementia, vascular, with depression (4) Dementia, vascular, with delusions (5) Dementia in Alzheimer's disease with depression (6) Dementia in Alzheimer's disease with delusions (7) Dementia of the Alzheimer's type with early onset with behavioral disturbance (8) Major neurocognitive disorder SHAEN MCGOWAN MD Jul 16, 2020 20:48
[2020-07-16] MEDS: ACETAMINOPHEN 500 MG TABLET PO SCH (21:20)
[2020-07-16] MEDS: MIRTAZAPINE 7.5 MG TABLET. PO SCH (21:21)
[2020-07-16] MEDS: traZODone 50 MG TABLET. PO PRN (22:48)
[2020-07-17] MEDS ORDERED: traZODone 50 MG TABLET. PO ONE (01:00)
[2020-07-17 05:56] VITALS: BP 109/67
--- NOTE | 2020-07-17 09:17 | PDOC ---
Exam Note: Wiliam Note: This note is a late entry for 07/15/2020 covers elements not covered in my initial note. Subjective: The patient was seen face to face in the evening of 07/15/2020 with Sarah CEBALLOS. Discussed with nursing staff, reviewed the chart. The patient slept 3-1/4 hours previous night. He has been sexually inappropriate with female nursing staff at times, making comments, grabbing the bottom of a female nurse. He had to be in the isolative hallway at one point, remains confused. Review of Systems: No CV, , pulmonary, eye system symptoms on review. Mental Status Exam: The patient is oriented to himself. Insight and judgment, recent and remote memory, attention and concentration, fund of knowledge is poor consistent with his diagnoses. Laboratory Data: Reviewed. Impression: Major neurocognitive disorder Alzheimer, vascular with delusion, depression, behavioral disturbance. Anxiety disorder unspecified. Impulse control disorder unspecified. Plan: Continue current psychotropics from initial note. Start Seroquel 12.5 mg 9 a.m. and 5 p.m. Continue rest unchanged. Assessment: Vital Signs/I&O: Vital Signs Date Time Temp Pulse Resp B/P (MAP) Pulse Ox O2 Delivery O2 Flow Rate FiO2 07/17/20 05:56 97.8 100 18 109/67 (81) 100 Room Air I & O 07/16/20 07/16/20 07/17/20 15:00 23:00 07:00 Intake Total 360 ml 360 ml Balance 360 ml 360 ml Current Medications: Meds: Current Medications Medications (Trade) Dose Ordered Sig/Segun Route PRN Reason Start Time Stop Time Status Last Admin Dose Admin Mirtazapine (Remeron) 7.5 mg QHS PO 07/16/20 21:00 07/16/20 21:21 Trazodone HCl (Desyrel) 50 mg 1X ONCE PO 07/17/20 01:00 07/17/20 01:05 DC 07/17/20 01:16 I have reviewed the current psychotropics carefully including drug interactions. Risk benefit ratio favors no change other than as noted in my dictated progress note. Diagnosis: Problems: (1) Impulse control disorder, unspecified (2) Anxiety disorder, unspecified (3) Dementia, vascular, with depression (4) Dementia, vascular, with delusions (5) Dementia in Alzheimer's disease with depression (6) Dementia in Alzheimer's disease with delusions (7) Dementia of the Alzheimer's type with early onset with behavioral disturbance (8) Major neurocognitive disorder SHANE MCGOWAN MD Jul 17, 2020 09:17
--- NOTE | 2020-07-17 09:18 | PDOC ---
Exam Note: Wiliam Note: This note is a late entry for 07/16/2020 covers elements not covered in my initial note. Subjective: The patient was reviewed on telehealth rounds in the morning of 07/16/2020 for treatment team meeting with Nelly (social organization professor), Alexa, activity therapy, and Sarah RN, because there was a patient who turned up positive for Covid-19 infection on the unit and the unit has been closed by the [facility] Department for any admissions or discharges once again. Discussed with nursing staff, reviewed the chart. The patient has been confused, wandering, pleasant, found in another patients room. Appetite is better this morning. We still consult dietary to see we need supplements. He just slept 1 hour previous night. We will add Remeron 7.5 mg h.s. to help with insomnia, anxiety and Zoloft 25 mg a day, and trazodone is currently 50 mg h.s. p.r.n. We will add an extra dosage if he is still not sleeping. Review of Systems: No CV, , pulmonary, eye system symptoms on review. Reliability poor. Mental Status Exam: The patient is oriented to himself. Insight and judgment, recent and remote memory, attention and concentration, fund of knowledge is poor consistent with his diagnoses. Laboratory Data: Reviewed. Impression: Major neurocognitive disorder Alzheimer, vascular with delusion, depression, behavioral disturbance. Anxiety disorder unspecified. Impulse control disorder unspecified. Plan: Continue current psychotropics from initial note. As noted above. Make further adjustments as clinically indicated. Assessment: Vital Signs/I&O: Vital Signs Date Time Temp Pulse Resp B/P (MAP) Pulse Ox O2 Delivery O2 Flow Rate FiO2 07/17/20 05:56 97.8 100 18 109/67 (81) 100 Room Air I & O 07/16/20 07/16/20 07/17/20 15:00 23:00 07:00 Intake Total 360 ml 360 ml Balance 360 ml 360 ml Current Medications: Meds: Current Medications Medications (Trade) Dose Ordered Sig/Segun Route PRN Reason Start Time Stop Time Status Last Admin Dose Admin Mirtazapine (Remeron) 7.5 mg QHS PO 07/16/20 21:00 07/16/20 21:21 Trazodone HCl (Desyrel) 50 mg 1X ONCE PO 07/17/20 01:00 07/17/20 01:05 DC 07/17/20 01:16 I have reviewed the current psychotropics carefully including drug interactions. Risk benefit ratio favors no change other than as noted in my dictated progress note. Diagnosis: Problems: (1) Impulse control disorder, unspecified (2) Anxiety disorder, unspecified (3) Dementia, vascular, with depression (4) Dementia, vascular, with delusions (5) Dementia in Alzheimer's disease with depression (6) Dementia in Alzheimer's disease with delusions (7) Dementia of the Alzheimer's type with early onset with behavioral disturbance (8) Major neurocognitive disorder SHANE MCGOWAN MD Jul 17, 2020 09:17
[2020-07-17] MEDS: LACTOBACILLUS RHAMNOSUS GG 1 CAPSULE. PO SCH ×2 (10:29→21:02)
[2020-07-17] MEDS: MULTIVITAMIN with MINERAL TABLET. PO SCH (10:29)
[2020-07-17] MEDS: QUEtiapine 25 MG TABLET. PO SCH ×2 (10:29→17:06)
[2020-07-17] MEDS: FAMOTIDINE 20 MG TABLET PO SCH ×2 (10:29→21:03)
[2020-07-17] MEDS: LIDOCAINE (700MG/PATCH) PATCH. TP SCH (10:29)
[2020-07-17] MEDS: SERTRALINE 25 MG TABLET. PO SCH (10:29)
[2020-07-17 16:04] VITALS: BP 102/67
--- NOTE | 2020-07-17 21:01 | PDOC ---
Exam Note: Wiliam Note: Please also refer to the separate dictated note~for this date of service dictated separately.~Patient seen individually. Discussed the patient with Nursing staff reviewed the chart.~Reviewed interim history and current functioning. Reviewed vital signs,~Labs/ Radiology~and current medications noted below. Continue current treatment with the changes noted in the dictated addendum note Assessment: Vital Signs/I&O: Vital Signs Date Time Temp Pulse Resp B/P (MAP) Pulse Ox O2 Delivery O2 Flow Rate FiO2 07/17/20 16:04 97.2 95 18 102/67 (79) 96 Room Air I & O 07/16/20 07/16/20 07/17/20 15:00 23:00 07:00 Intake Total 360 ml 360 ml Balance 360 ml 360 ml Current Medications: Meds: Current Medications Medications (Trade) Dose Ordered Sig/Segun Route PRN Reason Start Time Stop Time Status Last Admin Dose Admin Sertraline HCl (Zoloft) 25 mg DAILY PO 07/17/20 09:00 07/17/20 10:29 Trazodone HCl (Desyrel) 50 mg 1X ONCE PO 07/17/20 01:00 07/17/20 01:05 DC 07/17/20 01:16 I have reviewed the current psychotropics carefully including drug interactions. Risk benefit ratio favors no change other than as noted in my dictated progress note. Diagnosis: Problems: (1) Impulse control disorder, unspecified (2) Anxiety disorder, unspecified (3) Dementia, vascular, with depression (4) Dementia, vascular, with delusions (5) Dementia in Alzheimer's disease with depression (6) Dementia in Alzheimer's disease with delusions (7) Dementia of the Alzheimer's type with early onset with behavioral disturbance (8) Major neurocognitive disorder SHANE MCGOWAN MD Jul 17, 2020 21:01
[2020-07-17] MEDS: ACETAMINOPHEN 500 MG TABLET PO SCH (21:02)
[2020-07-17] MEDS: MIRTAZAPINE 7.5 MG TABLET. PO SCH (21:02)
[2020-07-17] MEDS: MELATONIN 3 MG TABLET PO SCH (21:03)
[2020-07-17] MEDS: traZODone 50 MG TABLET. PO PRN (21:10)
[2020-07-18] MEDS: ACETAMINOPHEN 325 MG TABLET PO PRN (05:35)
[2020-07-18] MEDS: METHYL SALICYLATE/MENTHOL TOPICAL OINTMENT 57GM TUBE. TP PRN (05:50)
[2020-07-18 06:35] VITALS: BP 107/75
[2020-07-18] MEDS: LIDOCAINE (700MG/PATCH) PATCH. TP SCH (10:14)
[2020-07-18] MEDS: FAMOTIDINE 20 MG TABLET PO SCH ×3 (10:14→21:00)
[2020-07-18] MEDS: MULTIVITAMIN with MINERAL TABLET. PO SCH (10:14)
[2020-07-18] MEDS: QUEtiapine 25 MG TABLET. PO SCH ×2 (10:14→16:10)
[2020-07-18] MEDS: SERTRALINE 25 MG TABLET. PO SCH (10:14)
[2020-07-18] MEDS: LACTOBACILLUS RHAMNOSUS GG 1 CAPSULE. PO SCH ×3 (10:14→21:00)
[2020-07-18 15:00] VITALS: BP 121/71
[2020-07-18] MEDS: MELATONIN 3 MG TABLET PO SCH (19:49)
[2020-07-18] MEDS: ACETAMINOPHEN 500 MG TABLET PO SCH ×2 (19:51→21:00)
[2020-07-18] MEDS: MIRTAZAPINE 7.5 MG TABLET. PO SCH (19:51)
[2020-07-18] MEDS: traZODone 50 MG TABLET. PO PRN (21:00)
--- NOTE | 2020-07-18 21:04 | PDOC ---
Exam Note: Wiliam Note: Please also refer to the separate dictated note~for this date of service dictated separately.~Patient seen individually. Discussed the patient with Nursing staff reviewed the chart.~Reviewed interim history and current functioning. Reviewed vital signs,~Labs/ Radiology~and current medications noted below. Continue current treatment with the changes noted in the dictated addendum note Assessment: Vital Signs/I&O: Vital Signs Date Time Temp Pulse Resp B/P (MAP) Pulse Ox O2 Delivery O2 Flow Rate FiO2 07/18/20 15:00 98.0 77 18 121/71 (88) 98 Room Air I & O 07/17/20 07/17/20 07/18/20 15:00 23:00 07:00 Intake Total 840 ml 480 ml Balance 840 ml 480 ml Current Medications: I have reviewed the current psychotropics carefully including drug interactions. Risk benefit ratio favors no change other than as noted in my dictated progress note. Diagnosis: Problems: (1) Impulse control disorder, unspecified (2) Anxiety disorder, unspecified (3) Dementia, vascular, with depression (4) Dementia, vascular, with delusions (5) Dementia in Alzheimer's disease with depression (6) Dementia in Alzheimer's disease with delusions (7) Dementia of the Alzheimer's type with early onset with behavioral disturbance (8) Major neurocognitive disorder SHANE MCGOWAN MD Jul 18, 2020 21:04
[2020-07-19 05:48] VITALS: BP 109/69
[2020-07-19 08:24] LABS: BASO # 0.1 x10^3/uL (0.0-0.2); BASO % 1 % (0-3); EOS # 0.2 x10^3/uL (0.0-0.7); EOS % 4 % (0-3); HEMATOCRIT 39.7 % (39.0-53.0); HEMOGLOBIN 12.7 g/dL (13.0-17.5); LYMPH % 20 % (24-48); MEAN CORPUSCULAR HEMOGLOBIN 27 pg (25-35); MEAN CORPUSCULAR HGB CONC 32 g/dL (31-37); MEAN CORPUSCULAR VOLUME 85 fL (79-100); MONO # 0.4 x10^3/uL (0.0-1.1); MONO % 8 % (0-9); NEUT # 3.6 x10^3uL (1.8-7.7); NEUT % 68 % (31-73); PLATELET COUNT 256 x10^3/uL (140-400); RED CELL DISTRIBUTION WIDTH 14.2 % (11.5-14.5); WHITE BLOOD COUNT 5.2 x10^3/uL (4.0-11.0)
[2020-07-19 08:37] LABS: ALBUMIN 2.5 g/dL (3.4-5.0); ALBUMIN/GLOBULIN RATIO 0.6 (1.0-1.7); CALCIUM 9.5 mg/dL (8.5-10.1); CREATININE 1.2 mg/dL (0.7-1.3); POTASSIUM 4.1 mmol/L (3.5-5.1); TOTAL BILIRUBIN 0.3 mg/dL (0.2-1.0)
[2020-07-19] MEDS: SERTRALINE 25 MG TABLET. PO SCH (09:05)
[2020-07-19] MEDS: QUEtiapine 25 MG TABLET. PO SCH ×2 (09:06→17:23)
[2020-07-19] MEDS: MULTIVITAMIN with MINERAL TABLET. PO SCH (09:06)
[2020-07-19] MEDS: FAMOTIDINE 20 MG TABLET PO SCH ×2 (09:06→21:01)
[2020-07-19] MEDS: LACTOBACILLUS RHAMNOSUS GG 1 CAPSULE. PO SCH ×2 (09:06→21:01)
[2020-07-19] MEDS: LIDOCAINE (700MG/PATCH) PATCH. TP SCH (09:06)
[2020-07-19 16:20] VITALS: BP 91/60
[2020-07-19] MEDS: MIRTAZAPINE 7.5 MG TABLET. PO SCH (21:01)
[2020-07-19] MEDS: ACETAMINOPHEN 500 MG TABLET PO SCH (21:01)
[2020-07-19] MEDS: traZODone 50 MG TABLET. PO PRN (21:01)
[2020-07-19] MEDS: MELATONIN 3 MG TABLET PO SCH (21:01)
--- NOTE | 2020-07-19 21:02 | PDOC ---
Exam Note: Wiliam Note: This note is a late entry for 07/17/2020 covers elements not covered in my initial note. Subjective: The patient was reviewed on telehealth rounds in the evening of 07/17/2020 with Kait CEBALLOS. Discussed with nursing staff, reviewed the chart. The patient slept 3-1/4 hours previous night. He had to be in the West hallway at night as he was pacing, unable to sit still. He fell at 4.30 a.m. No injury noted. He slept all day. Review of Systems: No CV, , pulmonary, eye system symptoms on review. Reliability poor. Mental Status Exam: The patient is oriented to himself. Insight and judgment, recent and remote memory, attention and concentration, fund of knowledge is poor consistent with his diagnoses. He is quite oblivious to his surroundings. Laboratory Data: Reviewed. Impression: Major neurocognitive disorder Alzheimer, vascular with delusion, depression, behavioral disturbance. Anxiety disorder unspecified. Impulse control disorder unspecified. Plan: Continue current psychotropics from initial note. Start melatonin 3 mg h.s. Assessment: Vital Signs/I&O: Vital Signs Date Time Temp Pulse Resp B/P (MAP) Pulse Ox O2 Delivery O2 Flow Rate FiO2 07/19/20 16:20 97.2 71 20 91/60 (70) 98 07/18/20 15:00 Room Air I & O 07/18/20 07/18/20 07/19/20 14:59 22:59 06:59 Intake Total 480 ml 240 ml Balance 480 ml 240 ml Labs: Laboratory Tests Test 07/19/20 07:41 White Blood Count 5.2 x10^3/uL (4.0-11.0) Red Blood Count 4.70 x10^6/uL (4.30-5.70) Hemoglobin 12.7 g/dL (13.0-17.5) L Hematocrit 39.7 % (39.0-53.0) Mean Corpuscular Volume 85 fL (79-100) Mean Corpuscular Hemoglobin 27 pg (25-35) Mean Corpuscular Hemoglobin Concent 32 g/dL (31-37) Red Cell Distribution Width 14.2 % (11.5-14.5) Platelet Count 256 x10^3/uL (140-400) Neutrophils (%) (Auto) 68 % (31-73) Lymphocytes (%) (Auto) 20 % (24-48) L Monocytes (%) (Auto) 8 % (0-9) Eosinophils (%) (Auto) 4 % (0-3) H Basophils (%) (Auto) 1 % (0-3) Neutrophils # (Auto) 3.6 x10^3uL (1.8-7.7) Lymphocytes # (Auto) 1.0 x10^3/uL (1.0-4.8) Monocytes # (Auto) 0.4 x10^3/uL (0.0-1.1) Eosinophils # (Auto) 0.2 x10^3/uL (0.0-0.7) Basophils # (Auto) 0.1 x10^3/uL (0.0-0.2) D-Dimer (Chani) 7.81 mg/L (0.00-0.50) H Sodium Level 146 mmol/L (136-145) H Potassium Level 4.1 mmol/L (3.5-5.1) Chloride Level 110 mmol/L (98-107) H Carbon Dioxide Level 26 mmol/L (21-32) Anion Gap 10 (6-14) Blood Urea Nitrogen 24 mg/dL (8-26) Creatinine 1.2 mg/dL (0.7-1.3) Estimated GFR (Cockcroft-Gault) 58.0 BUN/Creatinine Ratio 20 (6-20) Glucose Level 95 mg/dL (70-99) Calcium Level 9.5 mg/dL (8.5-10.1) Total Bilirubin 0.3 mg/dL (0.2-1.0) Aspartate Amino Transferase (AST) 28 U/L (15-37) Alanine Aminotransferase (ALT) 32 U/L (16-63) Alkaline Phosphatase 104 U/L (46-116) Total Protein 7.0 g/dL (6.4-8.2) Albumin 2.5 g/dL (3.4-5.0) L Albumin/Globulin Ratio 0.6 (1.0-1.7) L Current Medications: I have reviewed the current psychotropics carefully including drug interactions. Risk benefit ratio favors no change other than as noted in my dictated progress note. Diagnosis: Problems: (1) Impulse control disorder, unspecified (2) Anxiety disorder, unspecified (3) Dementia, vascular, with depression (4) Dementia, vascular, with delusions (5) Dementia in Alzheimer's disease with depression (6) Dementia in Alzheimer's disease with delusions (7) Dementia of the Alzheimer's type with early onset with behavioral disturbance (8) Major neurocognitive disorder SHANE MCGOWAN MD Jul 19, 2020 21:02
--- NOTE | 2020-07-19 21:18 | PDOC ---
Exam Note: Wiliam Note: This note is a late entry for 07/18/2020 covers elements not covered in my initial note. Subjective: The patient was reviewed on telehealth rounds in the evening of 07/18/2020 with Thuy CEBALLOS. Discussed with nursing staff, reviewed the chart. He slept 9 hours previous night. He is somewhat drowsy. Review of Systems: No CV, , pulmonary, eye system symptoms on review. Reliability poor. Mental Status Exam: The patient is oriented to himself. He is totally oblivious to his surroundings and disorganized. Insight and judgment, recent and remote memory, attention and concentration, fund of knowledge is poor consistent with his diagnoses. Laboratory Data: Reviewed. Impression: Major neurocognitive disorder Alzheimer, vascular with delusion, depression, behavioral disturbance. Anxiety disorder unspecified. Impulse control disorder unspecified. Plan: Continue current psychotropics from initial note. Assessment: Vital Signs/I&O: Vital Signs Date Time Temp Pulse Resp B/P (MAP) Pulse Ox O2 Delivery O2 Flow Rate FiO2 07/19/20 16:20 97.2 71 20 91/60 (70) 98 07/18/20 15:00 Room Air I & O 07/18/20 07/18/20 07/19/20 14:59 22:59 06:59 Intake Total 480 ml 240 ml Balance 480 ml 240 ml Labs: Laboratory Tests Test 07/19/20 07:41 White Blood Count 5.2 x10^3/uL (4.0-11.0) Red Blood Count 4.70 x10^6/uL (4.30-5.70) Hemoglobin 12.7 g/dL (13.0-17.5) L Hematocrit 39.7 % (39.0-53.0) Mean Corpuscular Volume 85 fL (79-100) Mean Corpuscular Hemoglobin 27 pg (25-35) Mean Corpuscular Hemoglobin Concent 32 g/dL (31-37) Red Cell Distribution Width 14.2 % (11.5-14.5) Platelet Count 256 x10^3/uL (140-400) Neutrophils (%) (Auto) 68 % (31-73) Lymphocytes (%) (Auto) 20 % (24-48) L Monocytes (%) (Auto) 8 % (0-9) Eosinophils (%) (Auto) 4 % (0-3) H Basophils (%) (Auto) 1 % (0-3) Neutrophils # (Auto) 3.6 x10^3uL (1.8-7.7) Lymphocytes # (Auto) 1.0 x10^3/uL (1.0-4.8) Monocytes # (Auto) 0.4 x10^3/uL (0.0-1.1) Eosinophils # (Auto) 0.2 x10^3/uL (0.0-0.7) Basophils # (Auto) 0.1 x10^3/uL (0.0-0.2) D-Dimer (Chani) 7.81 mg/L (0.00-0.50) H Sodium Level 146 mmol/L (136-145) H Potassium Level 4.1 mmol/L (3.5-5.1) Chloride Level 110 mmol/L (98-107) H Carbon Dioxide Level 26 mmol/L (21-32) Anion Gap 10 (6-14) Blood Urea Nitrogen 24 mg/dL (8-26) Creatinine 1.2 mg/dL (0.7-1.3) Estimated GFR (Cockcroft-Gault) 58.0 BUN/Creatinine Ratio 20 (6-20) Glucose Level 95 mg/dL (70-99) Calcium Level 9.5 mg/dL (8.5-10.1) Total Bilirubin 0.3 mg/dL (0.2-1.0) Aspartate Amino Transferase (AST) 28 U/L (15-37) Alanine Aminotransferase (ALT) 32 U/L (16-63) Alkaline Phosphatase 104 U/L (46-116) Total Protein 7.0 g/dL (6.4-8.2) Albumin 2.5 g/dL (3.4-5.0) L Albumin/Globulin Ratio 0.6 (1.0-1.7) L Current Medications: I have reviewed the current psychotropics carefully including drug interactions. Risk benefit ratio favors no change other than as noted in my dictated progress note. Diagnosis: Problems: (1) Impulse control disorder, unspecified (2) Anxiety disorder, unspecified (3) Dementia, vascular, with depression (4) Dementia, vascular, with delusions (5) Dementia in Alzheimer's disease with depression (6) Dementia in Alzheimer's disease with delusions (7) Dementia of the Alzheimer's type with early onset with behavioral disturbance (8) Major neurocognitive disorder SHANE MCGOWAN MD Jul 19, 2020 21:18
--- NOTE | 2020-07-19 21:26 | PDOC ---
Exam Note: Wiliam Note: Please also refer to the separate dictated note~for this date of service dictated separately.~Patient seen individually. Discussed the patient with Nursing staff reviewed the chart.~Reviewed interim history and current functioning. Reviewed vital signs,~Labs/ Radiology~and current medications noted below. Continue current treatment with the changes noted in the dictated addendum note Assessment: Vital Signs/I&O: Vital Signs Date Time Temp Pulse Resp B/P (MAP) Pulse Ox O2 Delivery O2 Flow Rate FiO2 07/19/20 16:20 97.2 71 20 91/60 (70) 98 07/18/20 15:00 Room Air I & O 07/18/20 07/18/20 07/19/20 15:00 23:00 07:00 Intake Total 480 ml 240 ml Balance 480 ml 240 ml Labs: Laboratory Tests Test 07/19/20 07:41 White Blood Count 5.2 x10^3/uL (4.0-11.0) Red Blood Count 4.70 x10^6/uL (4.30-5.70) Hemoglobin 12.7 g/dL (13.0-17.5) L Hematocrit 39.7 % (39.0-53.0) Mean Corpuscular Volume 85 fL (79-100) Mean Corpuscular Hemoglobin 27 pg (25-35) Mean Corpuscular Hemoglobin Concent 32 g/dL (31-37) Red Cell Distribution Width 14.2 % (11.5-14.5) Platelet Count 256 x10^3/uL (140-400) Neutrophils (%) (Auto) 68 % (31-73) Lymphocytes (%) (Auto) 20 % (24-48) L Monocytes (%) (Auto) 8 % (0-9) Eosinophils (%) (Auto) 4 % (0-3) H Basophils (%) (Auto) 1 % (0-3) Neutrophils # (Auto) 3.6 x10^3uL (1.8-7.7) Lymphocytes # (Auto) 1.0 x10^3/uL (1.0-4.8) Monocytes # (Auto) 0.4 x10^3/uL (0.0-1.1) Eosinophils # (Auto) 0.2 x10^3/uL (0.0-0.7) Basophils # (Auto) 0.1 x10^3/uL (0.0-0.2) D-Dimer (Chani) 7.81 mg/L (0.00-0.50) H Sodium Level 146 mmol/L (136-145) H Potassium Level 4.1 mmol/L (3.5-5.1) Chloride Level 110 mmol/L (98-107) H Carbon Dioxide Level 26 mmol/L (21-32) Anion Gap 10 (6-14) Blood Urea Nitrogen 24 mg/dL (8-26) Creatinine 1.2 mg/dL (0.7-1.3) Estimated GFR (Cockcroft-Gault) 58.0 BUN/Creatinine Ratio 20 (6-20) Glucose Level 95 mg/dL (70-99) Calcium Level 9.5 mg/dL (8.5-10.1) Total Bilirubin 0.3 mg/dL (0.2-1.0) Aspartate Amino Transferase (AST) 28 U/L (15-37) Alanine Aminotransferase (ALT) 32 U/L (16-63) Alkaline Phosphatase 104 U/L (46-116) Total Protein 7.0 g/dL (6.4-8.2) Albumin 2.5 g/dL (3.4-5.0) L Albumin/Globulin Ratio 0.6 (1.0-1.7) L Current Medications: I have reviewed the current psychotropics carefully including drug interactions. Risk benefit ratio favors no change other than as noted in my dictated progress note. Diagnosis: Problems: (1) Impulse control disorder, unspecified (2) Anxiety disorder, unspecified (3) Dementia, vascular, with depression (4) Dementia, vascular, with delusions (5) Dementia in Alzheimer's disease with depression (6) Dementia in Alzheimer's disease with delusions (7) Dementia of the Alzheimer's type with early onset with behavioral disturbance (8) Major neurocognitive disorder SHANE MCGOWAN MD Jul 19, 2020 21:26
[2020-07-20 06:08] VITALS: BP 114/71
[2020-07-20] MEDS: SERTRALINE 25 MG TABLET. PO SCH (08:44)
[2020-07-20] MEDS: LIDOCAINE (700MG/PATCH) PATCH. TP SCH (08:44)
[2020-07-20] MEDS: LACTOBACILLUS RHAMNOSUS GG 1 CAPSULE. PO SCH ×3 (08:44→20:09)
[2020-07-20] MEDS: FAMOTIDINE 20 MG TABLET PO SCH ×3 (08:44→20:09)
[2020-07-20] MEDS: MULTIVITAMIN with MINERAL TABLET. PO SCH ×2 (08:44→09:00)
[2020-07-20] MEDS: QUEtiapine 25 MG TABLET. PO SCH ×2 (08:44→17:10)
--- NOTE | 2020-07-20 12:17 | CONS ---
DATE OF CONSULTATION: 07/20/2020 MEDICAL CONSULTATION ATTENDING PHYSICIANS: Dr. England and Dr. Stephenson. HISTORY OF PRESENT ILLNESS: We are asked to see this patient for medical consultation. The patient is an 84-year-old gentleman who is very agitated. He is uncooperative. He had medical issues. When he was at the [facility] a week ago on 07/12, he had an elevated D-dimer of 20, at that time he had a moderate to large left-sided pneumothorax. He had been hemodynamically stable. He was not tachypneic. He was transferred to [facility], Dr. Rodriges saw him at that time and placed a Pulmonary consultation. As it turned out, ____ it was recommended given the patient's condition, he did not have a chest tube placed at that time, it was an incidental finding. The case was discussed with the . He was transferred back to the [facility] the next day. He has not had any respiratory distress. I saw him this morning, he is agitated, combative. He had his morning meds. PAST MEDICAL HISTORY: Significant for vascular dementia, delusional behavior, behavioral issues, neurocognitive disorder and anxiety. CURRENT MEDICATIONS: Include Tylenol, aluminum hydroxide, diltiazem, Pepcid, lactobacillus, Lidoderm patch, magnesium hydroxide, melatonin, Remeron, analgesic, multivitamin, Zyprexa, Seroquel, senna, and Zoloft. ALLERGIES: HE HAS ALLERGIES ALLOPURINOL, EXACT REACTION IS UNCLEAR. SOCIAL HISTORY: Nonsmoker, nondrinker. FAMILY HISTORY: Unobtainable. REVIEW OF SYSTEMS: Unobtainable due to the patient's agitated state. PHYSICAL EXAMINATION: VITAL SIGNS: When I saw him, blood pressure was 114/71 mmHg, temperature 98.2 degrees Fahrenheit, oxygen saturation 92% on room air, pulse 83 and regular. HEENT: Head is without trauma. Pupils are reactive. Sclerae nonicteric. Oropharynx clear. NECK: Supple, no bruits. LUNGS: Fairly good air movement is hard to assess due to the patient's agitation. He barely allowed me to put a stethoscope on him. CARDIOVASCULAR: Showed regular heart tones. No obvious gallops. Peripheral pulses are palpable and full. ABDOMEN: Soft, obese, protuberant. No organomegaly. Bowel sounds are hypoactive. EXTREMITIES: Showed no cyanosis or edema. He is nonambulatory at this time. SKIN: Otherwise, warm and dry. LABORATORY DATA: Hemoglobin most recently was 12.7 g/dL with white count of 5200. Electrolytes: Sodium 146, potassium 4.1 mEq, BUN and creatinine were normal. Transaminases were all normal. Nonfasting blood sugar 95. Thyroid function was normal. ASSESSMENT: 1. This 84-year-old gentleman has profound dementia with behavioral issues. 2. Incidental finding of a left-sided pneumothorax, asymptomatic at this time. He was sent to [place]. He did have Pulmonary consultation. Given his agitated state, it was decided at that time by Dr. Rodriges and the Pulmonary spa consultant that invasive chest tube placement was not indicated. 3. Underlying behavioral issues. 4. Impulse control disorder. RECOMMENDATIONS: 1. I reviewed his medication. I suspect we will need to increase his medications to sedate him. He is still quite agitated this time, which will certainly want to help his pneumothorax status. 2. He does not require any supplemental oxygen at this time. We will certainly keep an eye on him and consideration of treatment should his vascular status and cardiopulmonary status declined. He is a DNR per advanced directives. Thank you again for asked to see the patient in consultation. We should gladly follow along during his inpatient care. NIKITA STEPHENSON MD DR: DES/pasquale JOB#: [id number] / [id number]
[2020-07-20 16:09] VITALS: BP 93/62
[2020-07-20] MEDS: ACETAMINOPHEN 500 MG TABLET PO SCH (20:09)
[2020-07-20] MEDS: MIRTAZAPINE 7.5 MG TABLET. PO SCH (20:09)
[2020-07-20] MEDS: MELATONIN 3 MG TABLET PO SCH (20:09)
[2020-07-20] MEDS: traZODone 50 MG TABLET. PO PRN (20:10)
--- NOTE | 2020-07-20 20:47 | PDOC ---
Exam Note: Wiliam Note: Please also refer to the separate dictated note~for this date of service dictated separately.~Patient seen individually. Discussed the patient with Nursing staff reviewed the chart.~Reviewed interim history and current functioning. Reviewed vital signs,~Labs/ Radiology~and current medications noted below. Continue current treatment with the changes noted in the dictated addendum note Assessment: Vital Signs/I&O: Vital Signs Date Time Temp Pulse Resp B/P (MAP) Pulse Ox O2 Delivery O2 Flow Rate FiO2 07/20/20 16:09 97.4 100 18 93/62 (72) 96 07/18/20 15:00 Room Air I & O 07/19/20 07/19/20 07/20/20 15:00 23:00 07:00 Intake Total 600 ml 100 ml Balance 600 ml 100 ml Current Medications: I have reviewed the current psychotropics carefully including drug interactions. Risk benefit ratio favors no change other than as noted in my dictated progress note. Diagnosis: Problems: (1) Impulse control disorder, unspecified (2) Anxiety disorder, unspecified (3) Dementia, vascular, with depression (4) Dementia, vascular, with delusions (5) Dementia in Alzheimer's disease with depression (6) Dementia in Alzheimer's disease with delusions (7) Dementia of the Alzheimer's type with early onset with behavioral disturbance (8) Major neurocognitive disorder SHANE MCGOWAN MD Jul 20, 2020 20:47
[2020-07-21 06:23] VITALS: BP 102/71
--- NOTE | 2020-07-21 07:52 | PDOC ---
Exam Note: Wiliam Note: This note is a late entry for 07/19/2020 covers elements not covered in my initial note. Subjective: The patient was reviewed on telehealth rounds in the evening of 07/19/2020 with Shane CEBALLOS. Discussed with Shane CEBALLOS, reviewed the chart. He slept 7 hours previous night. The patient is compliant with his medications, calm. Appetite is 100%. Breakfast 25%. Review of Systems: No CV, , pulmonary, eye system symptoms on review. Mental Status Exam: The patient is oriented to himself. Insight and judgment, recent and remote memory, attention and concentration, fund of knowledge is poor consistent with his diagnoses. Laboratory Data: Reviewed. Impression: Major neurocognitive disorder Alzheimer, vascular with delusion, depression, behavioral disturbance. Anxiety disorder unspecified. Impulse control disorder unspecified. Plan: Continue current psychotropics from initial note. Assessment: Vital Signs/I&O: Vital Signs Date Time Temp Pulse Resp B/P (MAP) Pulse Ox O2 Delivery O2 Flow Rate FiO2 07/21/20 06:23 97.4 67 18 102/71 (81) 93 07/18/20 15:00 Room Air I & O 07/20/20 07/20/20 07/21/20 15:00 23:00 07:00 Intake Total 480 ml 100 ml Balance 480 ml 100 ml Current Medications: I have reviewed the current psychotropics carefully including drug interactions. Risk benefit ratio favors no change other than as noted in my dictated progress note. Diagnosis: Problems: (1) Impulse control disorder, unspecified (2) Anxiety disorder, unspecified (3) Dementia, vascular, with depression (4) Dementia, vascular, with delusions (5) Dementia in Alzheimer's disease with depression (6) Dementia in Alzheimer's disease with delusions (7) Dementia of the Alzheimer's type with early onset with behavioral disturbance (8) Major neurocognitive disorder SHANE MCGOWAN MD Jul 21, 2020 07:51
--- NOTE | 2020-07-21 08:09 | PDOC ---
Exam Note: Wiliam Note: This note is a late entry for 07/20/2020 covers elements not covered in my initial note. Subjective: The patient was seen face to face in the evening of 07/20/2020 with Kait CEBALLOS. Discussed with nursing staff, reviewed the chart. He slept 7-1/4 hours previous night. He is confused, intermittently agitated, spit out his meds that had to be syringed previous night. He received Zyprexa Zydis, resistive with Dr. Almanza when he was being examined. Review of Systems: No CV, , pulmonary, eye system symptoms on review. Reliability poor. Mental Status Exam: The patient is oriented to himself. Insight and judgment, recent and remote memory, attention and concentration, fund of knowledge is poor consistent with his diagnoses. Laboratory Data: Reviewed. Impression: Major neurocognitive disorder Alzheimer, vascular with delusion, depression, behavioral disturbance. Anxiety disorder unspecified. Impulse control disorder unspecified. Plan: Continue current psychotropics from initial note. Assessment: Vital Signs/I&O: Vital Signs Date Time Temp Pulse Resp B/P (MAP) Pulse Ox O2 Delivery O2 Flow Rate FiO2 07/21/20 06:23 97.4 67 18 102/71 (81) 93 07/18/20 15:00 Room Air I & O 07/20/20 07/20/20 07/21/20 15:00 23:00 07:00 Intake Total 480 ml 100 ml Balance 480 ml 100 ml Current Medications: I have reviewed the current psychotropics carefully including drug interactions. Risk benefit ratio favors no change other than as noted in my dictated progress note. Diagnosis: Problems: (1) Impulse control disorder, unspecified (2) Anxiety disorder, unspecified (3) Dementia, vascular, with depression (4) Dementia, vascular, with delusions (5) Dementia in Alzheimer's disease with depression (6) Dementia in Alzheimer's disease with delusions (7) Dementia of the Alzheimer's type with early onset with behavioral disturbance (8) Major neurocognitive disorder SHANE MCGOWAN MD Jul 21, 2020 08:09
[2020-07-21] MEDS: LACTOBACILLUS RHAMNOSUS GG 1 CAPSULE. PO SCH ×2 (08:14→20:11)
[2020-07-21] MEDS: MULTIVITAMIN with MINERAL TABLET. PO SCH (08:14)
[2020-07-21] MEDS: FAMOTIDINE 20 MG TABLET PO SCH ×2 (08:15→20:11)
[2020-07-21] MEDS: LIDOCAINE (700MG/PATCH) PATCH. TP SCH (08:15)
[2020-07-21] MEDS: QUEtiapine 25 MG TABLET. PO SCH ×2 (08:15→17:26)
[2020-07-21] MEDS: SERTRALINE 25 MG TABLET. PO SCH (08:15)
[2020-07-21 15:42] VITALS: BP 93/66
[2020-07-21] MEDS: MIRTAZAPINE 7.5 MG TABLET. PO SCH (20:11)
[2020-07-21] MEDS: MELATONIN 3 MG TABLET PO SCH (20:11)
[2020-07-21] MEDS: ACETAMINOPHEN 500 MG TABLET PO SCH (20:11)
--- NOTE | 2020-07-21 21:02 | PDOC ---
Exam Note: Wiliam Note: Please also refer to the separate dictated note~for this date of service dictated separately.~Patient seen individually. Discussed the patient with Nursing staff reviewed the chart.~Reviewed interim history and current functioning. Reviewed vital signs,~Labs/ Radiology~and current medications noted below. Continue current treatment with the changes noted in the dictated addendum note Assessment: Vital Signs/I&O: Vital Signs Date Time Temp Pulse Resp B/P (MAP) Pulse Ox O2 Delivery O2 Flow Rate FiO2 07/21/20 15:42 98.3 92 20 93/66 (75) 98 07/18/20 15:00 Room Air I & O 07/20/20 07/20/20 07/21/20 15:00 23:00 07:00 Intake Total 480 ml 100 ml Balance 480 ml 100 ml Current Medications: I have reviewed the current psychotropics carefully including drug interactions. Risk benefit ratio favors no change other than as noted in my dictated progress note. Diagnosis: Problems: (1) Impulse control disorder, unspecified (2) Anxiety disorder, unspecified (3) Dementia, vascular, with depression (4) Dementia, vascular, with delusions (5) Dementia in Alzheimer's disease with depression (6) Dementia in Alzheimer's disease with delusions (7) Dementia of the Alzheimer's type with early onset with behavioral disturbance (8) Major neurocognitive disorder SHANE MCGOWAN MD Jul 21, 2020 21:02
[2020-07-22 06:37] VITALS: BP 116/51
[2020-07-22] MEDS: MULTIVITAMIN with MINERAL TABLET. PO SCH (06:39)
[2020-07-22] MEDS: LIDOCAINE (700MG/PATCH) PATCH. TP SCH (06:39)
[2020-07-22] MEDS: LACTOBACILLUS RHAMNOSUS GG 1 CAPSULE. PO SCH ×2 (06:39→19:27)
[2020-07-22] MEDS: FAMOTIDINE 20 MG TABLET PO SCH ×2 (06:39→19:27)
[2020-07-22] MEDS: SERTRALINE 25 MG TABLET. PO SCH (06:39)
[2020-07-22] MEDS: QUEtiapine 25 MG TABLET. PO SCH ×2 (06:40→17:16)
[2020-07-22 15:34] VITALS: BP 109/74
--- NOTE | 2020-07-22 16:50 | TX PLAN ---
Interdisciplinary Tx Plan Admission Information Jul 14, 2020 at 12:15 Legal Status (on Admission): Voluntary DPOA/Guardian Name: Mary Nino Contact Other Contact Name: Nathaniel Lawler Other Contact Verified Code Status: DNR Allergies: Coded Allergies: allopurinol (Verified Allergy, Intermediate, 07/11/20) Diagnoses Primary Diagnosis: Major Neurological Disorder, Alzheimers with BD Reasons for Admission: Aggressive, Agitated, Confusion/Disoriented, Poor impulse control Problem in Patient's Words: He's been getting more aggressive, more particularly verbal aggression. Additional Admission Comments: According to the intake, pt is agitated, cursing staff, pacing, disrobing and uncooperative/resistive with cares. Problems Active Problems: Resistive with medications pacing/wandering Inactive Problems: Less aggression Pt Strengths/Limitations Ability for [place]: Poor Cognitive Functioning/Ability: Poor Communication Skills/Ability: Poor Financial Resources: Fair Insight/Judgement: Poor Intellectual Ability: Poor Physical Health: Poor Social Skills: Fair Stability in Family: Good Stability in School/Work: Poor Verbal Skills: Fair Discharge Criteria Discharge Criteria: No need for close observ., Adequate arrangements @DC, Improved behavior, Improved mood/thought Preliminary Discharge Plan Preliminary DC Plan: [facility] Special Precautions Fall Risk: Moderate Initial D/C Plan Pt to return to rehab at [facility] Identified Discharge Needs: Updates to [facility] for return to placement. Currently Utilized Resources Currently Utilized Resources/P: Primary Care Physician Referrals Community Resources: Need for psychiatrist Identified Problems/Hx/Goals Objectives/Short-Term Goals Short Term Goals: Dec. Aggression, Dec. Outbursts, Medication Stabilization, Monitor Med Effects, Promote Coping Skill Short Term Goals in Patient's: N/A Interventions/Frequency Staff Interventions/Frequency&: Psychiatrist to assess pt at least 3x per week for medication management. Customer Service Trainer to assess pt at least 2x per week for discharge planning and potential barriers. Nursing to assess medication reactions, behavioral management and complete 15 minute checks daily Encourage group participation in activities (if applicable) or 1:1 engagement based of activity dept assessment. 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 Treatment Plan Explained Patient/Building Services Supervisor had this treatment plan explained to him/her as indicated by the signature below and has been given the opportunity to ask questions and make suggestions: Date: Patient/Building Services Supervisor Signature: Patient/Building Services Supervisor Decline: DEIDRA Easley Jul 22, 2020 16:50
[2020-07-22] MEDS: MIRTAZAPINE 7.5 MG TABLET. PO SCH (19:27)
[2020-07-22] MEDS: MELATONIN 3 MG TABLET PO SCH (19:27)
[2020-07-22] MEDS: ACETAMINOPHEN 500 MG TABLET PO SCH (19:27)
[2020-07-22] MEDS: traZODone 50 MG TABLET. PO PRN (19:48)
--- NOTE | 2020-07-22 21:01 | PDOC ---
Exam Note: Wiliam Note: Please also refer to the separate dictated note~for this date of service dictated separately.~Patient seen individually. Discussed the patient with Nursing staff reviewed the chart.~Reviewed interim history and current functioning. Reviewed vital signs,~Labs/ Radiology~and current medications noted below. Continue current treatment with the changes noted in the dictated addendum note Assessment: Vital Signs/I&O: Vital Signs Date Time Temp Pulse Resp B/P (MAP) Pulse Ox O2 Delivery O2 Flow Rate FiO2 07/22/20 15:34 97.5 88 20 109/74 (86) 93 07/18/20 15:00 Room Air I & O 07/21/20 07/21/20 07/22/20 15:00 23:00 07:00 Intake Total 480 ml 220 ml Balance 480 ml 220 ml Current Medications: I have reviewed the current psychotropics carefully including drug interactions. Risk benefit ratio favors no change other than as noted in my dictated progress note. Diagnosis: Problems: (1) Impulse control disorder, unspecified (2) Anxiety disorder, unspecified (3) Dementia, vascular, with depression (4) Dementia, vascular, with delusions (5) Dementia in Alzheimer's disease with depression (6) Dementia in Alzheimer's disease with delusions (7) Dementia of the Alzheimer's type with early onset with behavioral disturbance (8) Major neurocognitive disorder SHANE MCGOWAN MD Jul 22, 2020 21:01
[2020-07-23] MEDS: METHYL SALICYLATE/MENTHOL TOPICAL OINTMENT 57GM TUBE. TP PRN (00:09)
[2020-07-23] MEDS: traZODone 50 MG TABLET. PO PRN ×2 (00:09→23:16)
[2020-07-23] MEDS: ACETAMINOPHEN 325 MG TABLET PO PRN (00:10)
[2020-07-23] MEDS: QUEtiapine 25 MG TABLET. PO SCH ×2 (04:01→17:27)
[2020-07-23] MEDS: FAMOTIDINE 20 MG TABLET PO SCH ×2 (04:01→19:41)
[2020-07-23] MEDS: MULTIVITAMIN with MINERAL TABLET. PO SCH (04:01)
[2020-07-23] MEDS: LIDOCAINE (700MG/PATCH) PATCH. TP SCH (04:02)
[2020-07-23] MEDS: LACTOBACILLUS RHAMNOSUS GG 1 CAPSULE. PO SCH ×2 (04:02→19:41)
[2020-07-23] MEDS: SERTRALINE 25 MG TABLET. PO SCH (04:02)
[2020-07-23 04:38] VITALS: BP 105/69
--- NOTE | 2020-07-23 08:03 | PDOC ---
Exam Note: Wiliam Note: This note is a late entry for 07/21/2020 covers elements not covered in my initial note. Subjective: The patient was seen face to face in the evening of 07/21/2020 with Kait CEBALLOS. Discussed with nursing staff, reviewed the chart. He slept 6-1/2 hours previous night. He is somewhat resistive, irritable at times previous evening, more pleasant on the 07/21. He is wandering, confused. Review of Systems: No CV, , pulmonary, eye system symptoms on review. Reliability poor. Mental Status Exam: The patient is oriented to himself. Insight and judgment, recent and remote memory, attention and concentration, fund of knowledge is poor consistent with his diagnoses. Laboratory Data: Reviewed. Impression: Major neurocognitive disorder Alzheimer, vascular with delusion, depression, behavioral disturbance. Anxiety disorder unspecified. Impulse control disorder unspecified. Plan: Continue current psychotropics from initial note. Assessment: Vital Signs/I&O: Vital Signs Date Time Temp Pulse Resp B/P (MAP) Pulse Ox O2 Delivery O2 Flow Rate FiO2 07/23/20 04:51 90 105/69 07/23/20 04:38 98.0 16 94 Room Air I & O 07/22/20 07/22/20 07/23/20 15:00 23:00 07:00 Intake Total 600 ml 480 ml Balance 600 ml 480 ml Current Medications: I have reviewed the current psychotropics carefully including drug interactions. Risk benefit ratio favors no change other than as noted in my dictated progress note. Diagnosis: Problems: (1) Impulse control disorder, unspecified (2) Anxiety disorder, unspecified (3) Dementia, vascular, with depression (4) Dementia, vascular, with delusions (5) Dementia in Alzheimer's disease with depression (6) Dementia in Alzheimer's disease with delusions (7) Dementia of the Alzheimer's type with early onset with behavioral disturbance (8) Major neurocognitive disorder SHANE MCGOWAN MD Jul 23, 2020 08:03
--- NOTE | 2020-07-23 08:18 | PDOC ---
Exam Note: Wiliam Note: This note is a late entry for 07/22/2020 covers elements not covered in my initial note. Subjective: The patient was seen face to face in the evening of 07/22/2020 with Kait CEBALLOS. Discussed with nursing staff, reviewed the chart. He slept 4 hours previous night. The patient has been restless, dozing off and on during the day and wandering. Review of Systems: No CV, , pulmonary, eye, ENT system symptoms on review. Mental Status Exam: The patient is oriented to himself. The patient is quite oblivious of his surroundings, confused. Insight and judgment, recent and remote memory, attention and concentration, fund of knowledge is poor consistent with his diagnoses. Laboratory Data: Reviewed. Impression: Major neurocognitive disorder Alzheimer, vascular with delusion, depression, behavioral disturbance. Anxiety disorder unspecified. Impulse control disorder unspecified. Plan: Continue current psychotropics from initial note. Assessment: Vital Signs/I&O: Vital Signs Date Time Temp Pulse Resp B/P (MAP) Pulse Ox O2 Delivery O2 Flow Rate FiO2 07/23/20 04:51 90 105/69 07/23/20 04:38 98.0 16 94 Room Air l I & O 07/22/20 07/22/20 07/23/20 15:00 23:00 07:00 Intake Total 600 ml 480 ml Balance 600 ml 480 ml Current Medications: I have reviewed the current psychotropics carefully including drug interactions. Risk benefit ratio favors no change other than as noted in my dictated progress note. Diagnosis: Problems: (1) Impulse control disorder, unspecified (2) Anxiety disorder, unspecified (3) Dementia, vascular, with depression (4) Dementia, vascular, with delusions (5) Dementia in Alzheimer's disease with depression (6) Dementia in Alzheimer's disease with delusions (7) Dementia of the Alzheimer's type with early onset with behavioral disturbance (8) Major neurocognitive disorder SHANE MCGOWAN MD Jul 23, 2020 08:18
--- NOTE | 2020-07-23 11:25 | TX PLAN ---
Interdisciplinary Tx Plan Admission Information Jul 14, 2020 at 12:15 Legal Status (on Admission): Voluntary DPOA/Guardian Name: Mary Nino Contact Other Contact Name: Nathaniel Lawler Other Contact Verified Code Status: DNR Allergies: Coded Allergies: allopurinol (Verified Allergy, Intermediate, 07/11/20) Diagnoses Primary Diagnosis: Major Neurological Disorder, Alzheimers with BD Reasons for Admission: Aggressive, Agitated, Confusion/Disoriented, Poor impulse control Problem in Patient's Words: He's been getting more aggressive, more particularly verbal aggression. Additional Admission Comments: According to the intake, pt is agitated, cursing staff, pacing, disrobing and uncooperative/resistive with cares. Problems Active Problems: Resistive with medications pacing/wandering Inactive Problems: Less aggression Pt Strengths/Limitations Ability for [place]: Poor Cognitive Functioning/Ability: Poor Communication Skills/Ability: Poor Financial Resources: Fair Insight/Judgement: Poor Intellectual Ability: Poor Physical Health: Poor Social Skills: Fair Stability in Family: Good Stability in School/Work: Poor Verbal Skills: Fair Discharge Criteria Discharge Criteria: No need for close observ., Adequate arrangements @DC, Improved behavior, Improved mood/thought Preliminary Discharge Plan Preliminary DC Plan: Custodial Special Precautions Fall Risk: Moderate Initial D/C Plan Pt to return to rehab at [facility] Identified Discharge Needs: Updates to [facility] for return to placement. Currently Utilized Resources Currently Utilized Resources/P: Primary Care Physician Referrals Community Resources: Need for psychiatrist Identified Problems/Hx/Goals Objectives/Short-Term Goals Short Term Goals: Dec. Aggression, Dec. Outbursts, Medication Stabilization, Monitor Med Effects, Promote Coping Skill Short Term Goals in Patient's: N/A Interventions/Frequency Staff Interventions/Frequency&: Psychiatrist to assess pt at least 3x per week for medication management. [employer] Installer to assess pt at least 2x per week for discharge planning and potential barriers. Nursing to assess medication reactions, behavioral management and complete 15 minute checks daily Encourage group participation in activities (if applicable) or 1:1 engagement based of activity dept assessment. 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 Treatment Plan Explained Patient/Gate Person had this treatment plan explained to him/her as indicated by the signature below and has been given the opportunity to ask questions and make suggestions: Date: Patient/Gate Person Signature: Status Update Update WEEKLY UPDATE/NOTE: Ricardo has been averaging 75% of meal intakes and 6.5 hours of sleep at night. He is alert with confusion but has not been aggressive towards others. He wanders about the unit and will enter others rooms at times. Zoloft will be increased to 50mg after three days. This SW is filling in for Karmen Wu who has followed Ricardo's care thus far. SW will update family and begin coordinating for tentative d/c date of early next week. LETY CROCKER Jul 23, 2020 11:25
[2020-07-23 16:23] VITALS: BP 101/69
[2020-07-23] MEDS: MIRTAZAPINE 7.5 MG TABLET. PO SCH (19:41)
[2020-07-23] MEDS: ACETAMINOPHEN 500 MG TABLET PO SCH (19:42)
[2020-07-23] MEDS: MELATONIN 3 MG TABLET PO SCH (19:42)
--- NOTE | 2020-07-23 20:55 | PDOC ---
Exam Note: Wiliam Note: Please also refer to the separate dictated note~for this date of service dictated separately.~Patient seen individually. Discussed the patient with Nursing staff reviewed the chart.~Reviewed interim history and current functioning. Reviewed vital signs,~Labs/ Radiology~and current medications noted below. Continue current treatment with the changes noted in the dictated addendum note Assessment: Vital Signs/I&O: Vital Signs Date Time Temp Pulse Resp B/P (MAP) Pulse Ox O2 Delivery O2 Flow Rate FiO2 07/23/20 16:23 97.9 90 16 101/69 (80) 95 07/23/20 04:38 Room Air I & O 07/22/20 07/22/20 07/23/20 15:00 23:00 07:00 Intake Total 600 ml 480 ml Balance 600 ml 480 ml Current Medications: I have reviewed the current psychotropics carefully including drug interactions. Risk benefit ratio favors no change other than as noted in my dictated progress note. Diagnosis: Problems: (1) Impulse control disorder, unspecified (2) Anxiety disorder, unspecified (3) Dementia, vascular, with depression (4) Dementia, vascular, with delusions (5) Dementia in Alzheimer's disease with depression (6) Dementia in Alzheimer's disease with delusions (7) Dementia of the Alzheimer's type with early onset with behavioral disturbance (8) Major neurocognitive disorder SHANE MCGOWAN MD Jul 23, 2020 20:55
[2020-07-24 05:23] VITALS: BP 111/71
[2020-07-24] MEDS: LACTOBACILLUS RHAMNOSUS GG 1 CAPSULE. PO SCH ×2 (08:38→20:36)
[2020-07-24] MEDS: MULTIVITAMIN with MINERAL TABLET. PO SCH (08:38)
[2020-07-24] MEDS: QUEtiapine 25 MG TABLET. PO SCH ×2 (08:38→17:08)
[2020-07-24] MEDS: FAMOTIDINE 20 MG TABLET PO SCH ×2 (08:38→20:35)
[2020-07-24] MEDS: LIDOCAINE (700MG/PATCH) PATCH. TP SCH (08:39)
[2020-07-24] MEDS: SERTRALINE 25 MG TABLET. PO SCH (08:40)
[2020-07-24 15:00] VITALS: BP 99/60
[2020-07-24] MEDS: MIRTAZAPINE 7.5 MG TABLET. PO SCH (20:35)
[2020-07-24] MEDS: traZODone 50 MG TABLET. PO PRN (20:35)
[2020-07-24] MEDS: MELATONIN 3 MG TABLET PO SCH (20:36)
[2020-07-24] MEDS: ACETAMINOPHEN 500 MG TABLET PO SCH (20:36)
--- NOTE | 2020-07-24 21:06 | PDOC ---
Exam Note: Wiliam Note: Please also refer to the separate dictated note~for this date of service dictated separately.~Patient seen individually. Discussed the patient with Nursing staff reviewed the chart.~Reviewed interim history and current functioning. Reviewed vital signs,~Labs/ Radiology~and current medications noted below. Continue current treatment with the changes noted in the dictated addendum note Assessment: Vital Signs/I&O: Vital Signs Date Time Temp Pulse Resp B/P (MAP) Pulse Ox O2 Delivery O2 Flow Rate FiO2 07/24/20 15:00 98.1 71 18 99/60 (73) 94 Room Air I & O 07/23/20 07/23/20 07/24/20 15:00 23:00 07:00 Intake Total 925 ml 240 ml Balance 925 ml 240 ml Current Medications: Meds: Current Medications Medications (Trade) Dose Ordered Sig/Segun Route PRN Reason Start Time Stop Time Status Last Admin Dose Admin Sertraline HCl (Zoloft) 50 mg DAILY PO 07/24/20 09:00 07/24/20 08:40 I have reviewed the current psychotropics carefully including drug interactions. Risk benefit ratio favors no change other than as noted in my dictated progress note. Diagnosis: Problems: (1) Impulse control disorder, unspecified (2) Anxiety disorder, unspecified (3) Dementia, vascular, with depression (4) Dementia, vascular, with delusions (5) Dementia in Alzheimer's disease with depression (6) Dementia in Alzheimer's disease with delusions (7) Dementia of the Alzheimer's type with early onset with behavioral disturbance (8) Major neurocognitive disorder SHANE MCGOWAN MD Jul 24, 2020 21:06
[2020-07-25 06:33] VITALS: BP 103/69
--- NOTE | 2020-07-25 07:11 | PDOC ---
Exam Note: Wiliam Note: This note is a late entry for 07/23/2020 covers elements not covered in my initial note. Subjective: The patient was seen face to face in the morning of 07/23/2020 for treatment team meeting with Genesis Pérez and Jinny (social science manager staff), Alexa, Activity Therapy and Cristofer CEBALLOS. Discussed with nursing staff, reviewed the chart. He slept 5-1/2 hours previous night. Appetite is 75%. Sleeping average is 6-1/2 hours. He remains confused. He complains of pain in the left upper leg. No evidence of DVT. Review of Systems: No CV, , pulmonary, eye, ENT system symptoms on review. Reliability poor. Mental Status Exam: The patient is oriented to himself. The patient is smiling at times, oblivious of his surroundings. Insight and judgment, recent and remote memory, attention and concentration, fund of knowledge is poor consistent with his diagnoses. Laboratory Data: Reviewed. Impression: Major neurocognitive disorder Alzheimer, vascular with delusion, depression, behavioral disturbance. Anxiety disorder unspecified. Impulse control disorder unspecified. Plan: Continue current psychotropics from initial note. He is currently on Zoloft 25 mg a day after he has been on this for 3 days. We will increase to 50 mg a day. Rest unchanged. Assessment: Vital Signs/I&O: Vital Signs Date Time Temp Pulse Resp B/P (MAP) Pulse Ox O2 Delivery O2 Flow Rate FiO2 07/25/20 06:33 97.6 89 20 103/69 (80) 94 Room Air I & O 07/24/20 07/24/20 07/25/20 15:00 23:00 07:00 Intake Total 480 ml 240 ml Balance 480 ml 240 ml Current Medications: Meds: Current Medications Medications (Trade) Dose Ordered Sig/Segun Route PRN Reason Start Time Stop Time Status Last Admin Dose Admin Sertraline HCl (Zoloft) 50 mg DAILY PO 07/24/20 09:00 07/24/20 08:40 I have reviewed the current psychotropics carefully including drug interactions. Risk benefit ratio favors no change other than as noted in my dictated progress note. Diagnosis: Problems: (1) Impulse control disorder, unspecified (2) Anxiety disorder, unspecified (3) Dementia, vascular, with depression (4) Dementia, vascular, with delusions (5) Dementia in Alzheimer's disease with depression (6) Dementia in Alzheimer's disease with delusions (7) Dementia of the Alzheimer's type with early onset with behavioral disturbance (8) Major neurocognitive disorder SHANE MCGOWAN MD Jul 25, 2020 07:11
--- NOTE | 2020-07-25 07:26 | PDOC ---
Exam Note: Wiliam Note: This note is a late entry for 07/24/2020 covers elements not covered in my initial note. Subjective: The patient was seen on telehealth rounds in the evening of 07/24/2020 with Sarah CEBALLOS. Discussed with nursing staff, reviewed the chart. He did not sleep at all previous night, otherwise, pleasant during the day, not aggressive. Received Zyprexa and trazodone previous night to help him sleep with little effect and we will see how he does with sleep tonight before considering any other changes. Review of Systems: No CV, , pulmonary, eye, ENT system symptoms on review. Mental Status Exam: The patient is oriented to himself. The patient is pleasant, verbal, interactive. He remains confused, but smiling as I met with him. Insight and judgment, recent and remote memory, attention and concentration, fund of knowledge is poor consistent with his diagnoses. Laboratory Data: Reviewed. Impression: Major neurocognitive disorder Alzheimer, vascular with delusion, depression, behavioral disturbance. Anxiety disorder unspecified. Impulse control disorder unspecified. Plan: Continue current psychotropics from initial note. Assessment: Vital Signs/I&O: Vital Signs Date Time Temp Pulse Resp B/P (MAP) Pulse Ox O2 Delivery O2 Flow Rate FiO2 07/25/20 06:33 97.6 89 20 103/69 (80) 94 Room Air I & O 07/24/20 07/24/20 07/25/20 15:00 23:00 07:00 Intake Total 480 ml 240 ml Balance 480 ml 240 ml Current Medications: Meds: Current Medications Medications (Trade) Dose Ordered Sig/Segun Route PRN Reason Start Time Stop Time Status Last Admin Dose Admin Sertraline HCl (Zoloft) 50 mg DAILY PO 07/24/20 09:00 07/24/20 08:40 I have reviewed the current psychotropics carefully including drug interactions. Risk benefit ratio favors no change other than as noted in my dictated progress note. Diagnosis: Problems: (1) Impulse control disorder, unspecified (2) Anxiety disorder, unspecified (3) Dementia, vascular, with depression (4) Dementia, vascular, with delusions (5) Dementia in Alzheimer's disease with depression (6) Dementia in Alzheimer's disease with delusions (7) Dementia of the Alzheimer's type with early onset with behavioral disturbance (8) Major neurocognitive disorder SHANE MCGOWAN MD Jul 25, 2020 07:26
[2020-07-25] MEDS: LIDOCAINE (700MG/PATCH) PATCH. TP SCH (08:07)
[2020-07-25] MEDS: FAMOTIDINE 20 MG TABLET PO SCH ×2 (08:08→20:04)
[2020-07-25] MEDS: MULTIVITAMIN with MINERAL TABLET. PO SCH (08:08)
[2020-07-25] MEDS: SERTRALINE 25 MG TABLET. PO SCH (08:08)
[2020-07-25] MEDS: LACTOBACILLUS RHAMNOSUS GG 1 CAPSULE. PO SCH ×2 (08:08→20:02)
[2020-07-25] MEDS: QUEtiapine 25 MG TABLET. PO SCH ×2 (08:08→17:50)
[2020-07-25 16:00] VITALS: BP 99/66
[2020-07-25] MEDS: MIRTAZAPINE 7.5 MG TABLET. PO SCH (20:02)
[2020-07-25] MEDS: ACETAMINOPHEN 500 MG TABLET PO SCH (20:03)
[2020-07-25] MEDS: MELATONIN 3 MG TABLET PO SCH (20:04)
--- NOTE | 2020-07-25 21:09 | PDOC ---
Exam Note: Wiliam Note: Please also refer to the separate dictated note~for this date of service dictated separately.~Patient seen individually. Discussed the patient with Nursing staff reviewed the chart.~Reviewed interim history and current functioning. Reviewed vital signs,~Labs/ Radiology~and current medications noted below. Continue current treatment with the changes noted in the dictated addendum note Assessment: Vital Signs/I&O: Vital Signs Date Time Temp Pulse Resp B/P (MAP) Pulse Ox O2 Delivery O2 Flow Rate FiO2 07/25/20 16:00 97.9 75 16 99/66 (77) 96 07/25/20 06:33 Room Air I & O 07/24/20 07/24/20 07/25/20 15:00 23:00 07:00 Intake Total 480 ml 240 ml Balance 480 ml 240 ml Current Medications: I have reviewed the current psychotropics carefully including drug interactions. Risk benefit ratio favors no change other than as noted in my dictated progress note. Diagnosis: Problems: (1) Impulse control disorder, unspecified (2) Anxiety disorder, unspecified (3) Dementia, vascular, with depression (4) Dementia, vascular, with delusions (5) Dementia in Alzheimer's disease with depression (6) Dementia in Alzheimer's disease with delusions (7) Dementia of the Alzheimer's type with early onset with behavioral disturbance (8) Major neurocognitive disorder SHANE MCGOWAN MD Jul 25, 2020 21:09
[2020-07-26 05:53] VITALS: BP 132/75
[2020-07-26] MEDS: SERTRALINE 25 MG TABLET. PO SCH (08:15)
[2020-07-26] MEDS: QUEtiapine 25 MG TABLET. PO SCH ×2 (08:15→16:10)
[2020-07-26] MEDS: FAMOTIDINE 20 MG TABLET PO SCH ×2 (08:15→19:51)
[2020-07-26] MEDS: LACTOBACILLUS RHAMNOSUS GG 1 CAPSULE. PO SCH ×2 (08:15→19:51)
[2020-07-26] MEDS: MULTIVITAMIN with MINERAL TABLET. PO SCH (08:15)
[2020-07-26] MEDS: LIDOCAINE (700MG/PATCH) PATCH. TP SCH (08:16)
[2020-07-26 15:00] VITALS: BP 122/62
[2020-07-26] MEDS: MIRTAZAPINE 7.5 MG TABLET. PO SCH (19:51)
[2020-07-26] MEDS: MELATONIN 3 MG TABLET PO SCH (19:51)
[2020-07-26] MEDS: ACETAMINOPHEN 500 MG TABLET PO SCH (19:51)
--- NOTE | 2020-07-26 20:50 | PDOC ---
Exam Note: Wiliam Note: Please also refer to the separate dictated note~for this date of service dictated separately.~Patient seen individually. Discussed the patient with Nursing staff reviewed the chart.~Reviewed interim history and current functioning. Reviewed vital signs,~Labs/ Radiology~and current medications noted below. Continue current treatment with the changes noted in the dictated addendum note Assessment: Vital Signs/I&O: Vital Signs Date Time Temp Pulse Resp B/P (MAP) Pulse Ox O2 Delivery O2 Flow Rate FiO2 07/26/20 15:00 97.9 68 20 122/62 (82) 99 Room Air I & O 07/25/20 07/25/20 07/26/20 15:00 23:00 07:00 Intake Total 960 ml 600 ml Balance 960 ml 600 ml Labs: Laboratory Tests Test 07/26/20 06:00 SARS-CoV-2 (PCR) Negative (NEGATIVE) Current Medications: I have reviewed the current psychotropics carefully including drug interactions. Risk benefit ratio favors no change other than as noted in my dictated progress note. Diagnosis: Problems: (1) Impulse control disorder, unspecified (2) Anxiety disorder, unspecified (3) Dementia, vascular, with depression (4) Dementia, vascular, with delusions (5) Dementia in Alzheimer's disease with depression (6) Dementia in Alzheimer's disease with delusions (7) Dementia of the Alzheimer's type with early onset with behavioral disturbance (8) Major neurocognitive disorder SHANE MCGOWAN MD Jul 26, 2020 20:50
[2020-07-27] MEDS: traZODone 50 MG TABLET. PO PRN (01:10)
[2020-07-27 05:54] VITALS: BP 104/56
[2020-07-27 06:51] LABS: BASO # 0.1 x10^3/uL (0.0-0.2); BASO % 1 % (0-3); EOS # 0.2 x10^3/uL (0.0-0.7); EOS % 2 % (0-3); HEMATOCRIT 41.5 % (39.0-53.0); HEMOGLOBIN 13.6 g/dL (13.0-17.5); LYMPH # 1.1 x10^3/uL (1.0-4.8); LYMPH % 14 % (24-48); MEAN CORPUSCULAR HEMOGLOBIN 27 pg (25-35); MEAN CORPUSCULAR HGB CONC 33 g/dL (31-37); MEAN CORPUSCULAR VOLUME 84 fL (79-100); MONO # 0.4 x10^3/uL (0.0-1.1); MONO % 6 % (0-9); NEUT # 5.9 x10^3uL (1.8-7.7); NEUT % 77 % (31-73); PLATELET COUNT 318 x10^3/uL (140-400); RED BLOOD COUNT 4.97 x10^6/uL (4.30-5.70); RED CELL DISTRIBUTION WIDTH 14.1 % (11.5-14.5); WHITE BLOOD COUNT 7.7 x10^3/uL (4.0-11.0)
[2020-07-27 07:14] LABS: ALBUMIN 2.8 g/dL (3.4-5.0); ALBUMIN/GLOBULIN RATIO 0.6 (1.0-1.7); CALCIUM 9.4 mg/dL (8.5-10.1); CREATININE 1.1 mg/dL (0.7-1.3); GFR 64.1; POTASSIUM 3.7 mmol/L (3.5-5.1); TOTAL BILIRUBIN 0.3 mg/dL (0.2-1.0); TOTAL PROTEIN 7.5 g/dL (6.4-8.2)
--- NOTE | 2020-07-27 07:39 | PDOC ---
Exam Note: Wiliam Note: This note is a late entry for 07/25/2020 covers elements not covered in my initial note. Subjective: The patient was seen on telehealth rounds in the evening of 07/25/2020 with Shane CEBALLOS. Discussed with nursing staff, reviewed the chart. He slept 5-1/2 hours previous night. The patient is compliant with his medications in the morning. He had not needed any p.r.n.s. Mood is better. He was smiling as I met with him. He has been sleeping intermittently even during the day. Review of Systems: No CV, , pulmonary, eye, ENT system symptoms on review. Mental Status Exam: The patient is oriented to himself. The patient is pleasant, smiling as I met with him. Insight and judgment, recent and remote memory, attention and concentration, fund of knowledge is poor consistent with his diagnoses. Laboratory Data: Reviewed. Impression: Major neurocognitive disorder Alzheimer, vascular with delusion, depression, behavioral disturbance. Anxiety disorder unspecified. Impulse control disorder unspecified. Plan: Continue current psychotropics from initial note. Assessment: Vital Signs/I&O: Vital Signs Date Time Temp Pulse Resp B/P (MAP) Pulse Ox O2 Delivery O2 Flow Rate FiO2 07/27/20 05:54 97.3 97 18 104/56 (72) 96 07/26/20 15:00 Room Air I & O 07/26/20 07/26/20 07/27/20 15:00 23:00 07:00 Intake Total 300 ml Balance 300 ml Labs: Laboratory Tests Test 07/27/20 06:36 White Blood Count 7.7 x10^3/uL (4.0-11.0) Red Blood Count 4.97 x10^6/uL (4.30-5.70) Hemoglobin 13.6 g/dL (13.0-17.5) Hematocrit 41.5 % (39.0-53.0) Mean Corpuscular Volume 84 fL (79-100) Mean Corpuscular Hemoglobin 27 pg (25-35) Mean Corpuscular Hemoglobin Concent 33 g/dL (31-37) Red Cell Distribution Width 14.1 % (11.5-14.5) Platelet Count 318 x10^3/uL (140-400) Neutrophils (%) (Auto) 77 % (31-73) H Lymphocytes (%) (Auto) 14 % (24-48) L Monocytes (%) (Auto) 6 % (0-9) Eosinophils (%) (Auto) 2 % (0-3) Basophils (%) (Auto) 1 % (0-3) Neutrophils # (Auto) 5.9 x10^3uL (1.8-7.7) Lymphocytes # (Auto) 1.1 x10^3/uL (1.0-4.8) Monocytes # (Auto) 0.4 x10^3/uL (0.0-1.1) Eosinophils # (Auto) 0.2 x10^3/uL (0.0-0.7) Basophils # (Auto) 0.1 x10^3/uL (0.0-0.2) Sodium Level 140 mmol/L (136-145) Potassium Level 3.7 mmol/L (3.5-5.1) Chloride Level 103 mmol/L (98-107) Carbon Dioxide Level 27 mmol/L (21-32) Anion Gap 10 (6-14) Blood Urea Nitrogen 18 mg/dL (8-26) Creatinine 1.1 mg/dL (0.7-1.3) Estimated GFR (Cockcroft-Gault) 64.1 BUN/Creatinine Ratio 16 (6-20) Glucose Level 88 mg/dL (70-99) Calcium Level 9.4 mg/dL (8.5-10.1) Total Bilirubin 0.3 mg/dL (0.2-1.0) Aspartate Amino Transferase (AST) 33 U/L (15-37) Alanine Aminotransferase (ALT) 39 U/L (16-63) Alkaline Phosphatase 122 U/L (46-116) H Total Protein 7.5 g/dL (6.4-8.2) Albumin 2.8 g/dL (3.4-5.0) L Albumin/Globulin Ratio 0.6 (1.0-1.7) L Current Medications: I have reviewed the current psychotropics carefully including drug interactions. Risk benefit ratio favors no change other than as noted in my dictated progress note. Diagnosis: Problems: (1) Impulse control disorder, unspecified (2) Anxiety disorder, unspecified (3) Dementia, vascular, with depression (4) Dementia, vascular, with delusions (5) Dementia in Alzheimer's disease with depression (6) Dementia in Alzheimer's disease with delusions (7) Dementia of the Alzheimer's type with early onset with behavioral disturbance (8) Major neurocognitive disorder SHANE MCGOWAN MD Jul 27, 2020 07:39
--- NOTE | 2020-07-27 07:59 | PDOC ---
Exam Note: Wiliam Note: This note is a late entry for 07/26/2020 covers elements not covered in my initial note. Subjective: The patient was seen on telehealth rounds in the evening of 07/26/2020 with Shane CEBALLOS. Discussed with nursing staff, reviewed the chart. He slept 6 hours previous night. The patient remains confused, had a great day per nursing report. He has been better taking his medications per nursing report. Review of Systems: No CV, , pulmonary, eye, ENT system symptoms on review. Mental Status Exam: The patient is oriented to himself. The patient is pleasant, smiling, quite oblivious of his surroundings as I met with him individually. Insight and judgment, recent and remote memory, attention and concentration, fund of knowledge is poor consistent with his diagnoses. Laboratory Data: Reviewed. Impression: Major neurocognitive disorder Alzheimer, vascular with delusion, depression, behavioral disturbance. Anxiety disorder unspecified. Impulse control disorder unspecified. Plan: Continue current psychotropics from initial note. Assessment: Vital Signs/I&O: Vital Signs Date Time Temp Pulse Resp B/P (MAP) Pulse Ox O2 Delivery O2 Flow Rate FiO2 07/27/20 05:54 97.3 97 18 104/56 (72) 96 07/26/20 15:00 Room Air I & O 0 07/26/20 07/26/20 07/27/20 14:59 22:59 06:59 Intake Total 800 ml 300 ml Balance 800 ml 300 ml Labs: Laboratory Tests Test 07/27/20 06:36 White Blood Count 7.7 x10^3/uL (4.0-11.0) Red Blood Count 4.97 x10^6/uL (4.30-5.70) Hemoglobin 13.6 g/dL (13.0-17.5) Hematocrit 41.5 % (39.0-53.0) Mean Corpuscular Volume 84 fL (79-100) Mean Corpuscular Hemoglobin 27 pg (25-35) Mean Corpuscular Hemoglobin Concent 33 g/dL (31-37) Red Cell Distribution Width 14.1 % (11.5-14.5) Platelet Count 318 x10^3/uL (140-400) Neutrophils (%) (Auto) 77 % (31-73) H Lymphocytes (%) (Auto) 14 % (24-48) L Monocytes (%) (Auto) 6 % (0-9) Eosinophils (%) (Auto) 2 % (0-3) Basophils (%) (Auto) 1 % (0-3) Neutrophils # (Auto) 5.9 x10^3uL (1.8-7.7) Lymphocytes # (Auto) 1.1 x10^3/uL (1.0-4.8) Monocytes # (Auto) 0.4 x10^3/uL (0.0-1.1) Eosinophils # (Auto) 0.2 x10^3/uL (0.0-0.7) Basophils # (Auto) 0.1 x10^3/uL (0.0-0.2) Sodium Level 140 mmol/L (136-145) Potassium Level 3.7 mmol/L (3.5-5.1) Chloride Level 103 mmol/L (98-107) Carbon Dioxide Level 27 mmol/L (21-32) Anion Gap 10 (6-14) Blood Urea Nitrogen 18 mg/dL (8-26) Creatinine 1.1 mg/dL (0.7-1.3) Estimated GFR (Cockcroft-Gault) 64.1 BUN/Creatinine Ratio 16 (6-20) Glucose Level 88 mg/dL (70-99) Calcium Level 9.4 mg/dL (8.5-10.1) Total Bilirubin 0.3 mg/dL (0.2-1.0) Aspartate Amino Transferase (AST) 33 U/L (15-37) Alanine Aminotransferase (ALT) 39 U/L (16-63) Alkaline Phosphatase 122 U/L (46-116) H Total Protein 7.5 g/dL (6.4-8.2) Albumin 2.8 g/dL (3.4-5.0) L Albumin/Globulin Ratio 0.6 (1.0-1.7) L Current Medications: I have reviewed the current psychotropics carefully including drug interactions. Risk benefit ratio favors no change other than as noted in my dictated progress note. 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
[2020-07-27] MEDS: MULTIVITAMIN with MINERAL TABLET. PO SCH (09:52)
[2020-07-27] MEDS: FAMOTIDINE 20 MG TABLET PO SCH ×2 (09:52→20:43)
[2020-07-27] MEDS: QUEtiapine 25 MG TABLET. PO SCH ×2 (09:52→17:54)
[2020-07-27] MEDS: LACTOBACILLUS RHAMNOSUS GG 1 CAPSULE. PO SCH ×2 (09:52→20:43)
[2020-07-27] MEDS: LIDOCAINE (700MG/PATCH) PATCH. TP SCH (09:52)
[2020-07-27] MEDS: SERTRALINE 25 MG TABLET. PO SCH (09:53)
[2020-07-27 15:20] VITALS: BP 120/70
[2020-07-27] MEDS: ACETAMINOPHEN 500 MG TABLET PO SCH (20:43)
[2020-07-27] MEDS: MIRTAZAPINE 7.5 MG TABLET. PO SCH (20:43)
[2020-07-27] MEDS: MELATONIN 3 MG TABLET PO SCH (20:43)
--- NOTE | 2020-07-27 21:22 | PDOC ---
Exam Note: Wiliam Note: Please also refer to the separate dictated note~for this date of service dictated separately.~Patient seen individually. Discussed the patient with Nursing staff reviewed the chart.~Reviewed interim history and current functioning. Reviewed vital signs,~Labs/ Radiology~and current medications noted below. Continue current treatment with the changes noted in the dictated addendum note Assessment: Vital Signs/I&O: Vital Signs Date Time Temp Pulse Resp B/P (MAP) Pulse Ox O2 Delivery O2 Flow Rate FiO2 07/27/20 15:20 97.4 86 17 120/70 (87) 97 07/26/20 15:00 Room Air I & O 07/26/20 07/26/20 07/27/20 15:00 23:00 07:00 Intake Total 800 ml 300 ml Balance 800 ml 300 ml Labs: Laboratory Tests Test 07/27/20 06:36 White Blood Count 7.7 x10^3/uL (4.0-11.0) Red Blood Count 4.97 x10^6/uL (4.30-5.70) Hemoglobin 13.6 g/dL (13.0-17.5) Hematocrit 41.5 % (39.0-53.0) Mean Corpuscular Volume 84 fL (79-100) Mean Corpuscular Hemoglobin 27 pg (25-35) Mean Corpuscular Hemoglobin Concent 33 g/dL (31-37) Red Cell Distribution Width 14.1 % (11.5-14.5) Platelet Count 318 x10^3/uL (140-400) Neutrophils (%) (Auto) 77 % (31-73) H Lymphocytes (%) (Auto) 14 % (24-48) L Monocytes (%) (Auto) 6 % (0-9) Eosinophils (%) (Auto) 2 % (0-3) Basophils (%) (Auto) 1 % (0-3) Neutrophils # (Auto) 5.9 x10^3uL (1.8-7.7) Lymphocytes # (Auto) 1.1 x10^3/uL (1.0-4.8) Monocytes # (Auto) 0.4 x10^3/uL (0.0-1.1) Eosinophils # (Auto) 0.2 x10^3/uL (0.0-0.7) Basophils # (Auto) 0.1 x10^3/uL (0.0-0.2) Sodium Level 140 mmol/L (136-145) Potassium Level 3.7 mmol/L (3.5-5.1) Chloride Level 103 mmol/L (98-107) Carbon Dioxide Level 27 mmol/L (21-32) Anion Gap 10 (6-14) Blood Urea Nitrogen 18 mg/dL (8-26) Creatinine 1.1 mg/dL (0.7-1.3) Estimated GFR (Cockcroft-Gault) 64.1 BUN/Creatinine Ratio 16 (6-20) Glucose Level 88 mg/dL (70-99) Calcium Level 9.4 mg/dL (8.5-10.1) Total Bilirubin 0.3 mg/dL (0.2-1.0) Aspartate Amino Transferase (AST) 33 U/L (15-37) Alanine Aminotransferase (ALT) 39 U/L (16-63) Alkaline Phosphatase 122 U/L (46-116) H Total Protein 7.5 g/dL (6.4-8.2) Albumin 2.8 g/dL (3.4-5.0) L Albumin/Globulin Ratio 0.6 (1.0-1.7) L Current Medications: I have reviewed the current psychotropics carefully including drug interactions. Risk benefit ratio favors no change other than as noted in my dictated progress note. Diagnosis: Problems: (1) Impulse control disorder, unspecified (2) Anxiety disorder, unspecified (3) Dementia, vascular, with depression (4) Dementia, vascular, with delusions (5) Dementia in Alzheimer's disease with depression (6) Dementia in Alzheimer's disease with delusions (7) Dementia of the Alzheimer's type with early onset with behavioral disturbance (8) Major neurocognitive disorder SHANE MCGOWAN MD Jul 27, 2020 21:22
[2020-07-28 06:07] VITALS: BP 100/65
--- NOTE | 2020-07-28 08:02 | PDOC ---
Exam Note: Wiliam Note: This note is a late entry for 07/27/2020 covers elements not covered in my initial note. Subjective: The patient was seen on telehealth rounds in the evening of 07/27/2020 with Kait CEBALLOS. Discussed with nursing staff, reviewed the chart. He slept 4-1/4 hours previous night. Overall the patient remains confused, but has done well. Oral intake is poor and swallow study will be repeated per dietary so that hopefully he can get off pureed food and he can eat better. Review of Systems: No CV, , pulmonary, eye, ENT system symptoms on review. Mental Status Exam: The patient is oriented to himself. He is smiling as I met with him individually. He is pleasant. Often verbal response is monosyllabic. Insight and judgment, recent and remote memory, attention and concentration, fund of knowledge is poor consistent with his diagnoses. Laboratory Data: Reviewed. Impression: Major neurocognitive disorder Alzheimer, vascular with delusion, depression, behavioral disturbance. Anxiety disorder unspecified. Impulse control disorder unspecified. Plan: Continue current psychotropics from initial note Assessment: Vital Signs/I&O: Vital Signs Date Time Temp Pulse Resp B/P (MAP) Pulse Ox O2 Delivery O2 Flow Rate FiO2 07/28/20 06:07 97.4 60 18 100/65 (77) 95 07/26/20 15:00 Room Air I & O 07/27/20 07/27/20 07/28/20 15:00 23:00 07:00 Intake Total 960 ml 510 ml Balance 960 ml 510 ml Current Medications: I have reviewed the current psychotropics carefully including drug interactions. Risk benefit ratio favors no change other than as noted in my dictated progress note. Diagnosis: Problems: (1) Impulse control disorder, unspecified (2) Anxiety disorder, unspecified (3) Dementia, vascular, with depression (4) Dementia, vascular, with delusions (5) Dementia in Alzheimer's disease with depression (6) Dementia in Alzheimer's disease with delusions (7) Dementia of the Alzheimer's type with early onset with behavioral disturbance (8) Major neurocognitive disorder SHANE MCGOWAN MD Jul 28, 2020 08:02
[2020-07-28] MEDS: LIDOCAINE (700MG/PATCH) PATCH. TP SCH (09:00)
[2020-07-28] MEDS: MULTIVITAMIN with MINERAL TABLET. PO SCH (09:27)
[2020-07-28] MEDS: SERTRALINE 25 MG TABLET. PO SCH (09:27)
[2020-07-28] MEDS: LACTOBACILLUS RHAMNOSUS GG 1 CAPSULE. PO SCH ×2 (09:27→20:51)
[2020-07-28] MEDS: QUEtiapine 25 MG TABLET. PO SCH ×2 (09:28→17:15)
[2020-07-28] MEDS: FAMOTIDINE 20 MG TABLET PO SCH ×2 (09:28→20:51)
[2020-07-28 15:48] VITALS: BP 113/65
[2020-07-28] MEDS: MELATONIN 3 MG TABLET PO SCH (20:51)
[2020-07-28] MEDS: MIRTAZAPINE 7.5 MG TABLET. PO SCH (20:51)
[2020-07-28] MEDS: ACETAMINOPHEN 500 MG TABLET PO SCH (20:51)
--- NOTE | 2020-07-28 21:03 | PDOC ---
Exam Note: Wiliam Note: Please also refer to the separate dictated note~for this date of service dictated separately.~Patient seen individually. Discussed the patient with Nursing staff reviewed the chart.~Reviewed interim history and current functioning. Reviewed vital signs,~Labs/ Radiology~and current medications noted below. Continue current treatment with the changes noted in the dictated addendum note Assessment: Vital Signs/I&O: Vital Signs Date Time Temp Pulse Resp B/P (MAP) Pulse Ox O2 Delivery O2 Flow Rate FiO2 07/28/20 15:48 97.8 91 20 113/65 (81) 96 07/26/20 15:00 Room Air I & O 07/27/20 07/27/20 07/28/20 15:00 23:00 07:00 Intake Total 960 ml 510 ml Balance 960 ml 510 ml Current Medications: I have reviewed the current psychotropics carefully including drug interactions. Risk benefit ratio favors no change other than as noted in my dictated progress note. Diagnosis: Problems: (1) Impulse control disorder, unspecified (2) Anxiety disorder, unspecified (3) Dementia, vascular, with depression (4) Dementia, vascular, with delusions (5) Dementia in Alzheimer's disease with depression (6) Dementia in Alzheimer's disease with delusions (7) Dementia of the Alzheimer's type with early onset with behavioral disturbance (8) Major neurocognitive disorder SHANE MCGOWAN MD Jul 28, 2020 21:02
[2020-07-29] MEDS: traZODone 50 MG TABLET. PO PRN ×2 (01:25→20:37)
[2020-07-29] MEDS: ACETAMINOPHEN 325 MG TABLET PO PRN (01:32)
[2020-07-29 06:34] VITALS: BP 121/78
[2020-07-29] MEDS: QUEtiapine 25 MG TABLET. PO SCH ×2 (09:15→17:02)
[2020-07-29] MEDS: FAMOTIDINE 20 MG TABLET PO SCH ×2 (09:15→20:37)
[2020-07-29] MEDS: LACTOBACILLUS RHAMNOSUS GG 1 CAPSULE. PO SCH ×2 (09:15→20:37)
[2020-07-29] MEDS: LIDOCAINE (700MG/PATCH) PATCH. TP SCH (09:16)
[2020-07-29] MEDS: SERTRALINE 25 MG TABLET. PO SCH (09:16)
[2020-07-29] MEDS: MULTIVITAMIN with MINERAL TABLET. PO SCH (09:16)
--- NOTE | 2020-07-29 13:00 | TX PLAN ---
Interdisciplinary Tx Plan Admission Information Jul 14, 2020 at 12:15 Legal Status (on Admission): Voluntary DPOA/Guardian Name: Mary Nino Contact Other Contact Name: Nathaniel Lawler Other Contact Verified Code Status: DNR Allergies: Coded Allergies: allopurinol (Verified Allergy, Intermediate, 07/11/20) Diagnoses Primary Diagnosis: Major Neurological Disorder, Alzheimers with BD Reasons for Admission: Aggressive, Agitated, Confusion/Disoriented, Poor impulse control Problem in Patient's Words: He's been getting more aggressive, more particularly verbal aggression. Additional Admission Comments: According to the intake, pt is agitated, cursing staff, pacing, disrobing and uncooperative/resistive with cares. Problems Active Problems: Resistive with medications pacing/wandering Inactive Problems: Less aggression Pt Strengths/Limitations Ability for [place]: Poor Cognitive Functioning/Ability: Poor Communication Skills/Ability: Poor Financial Resources: Fair Insight/Judgement: Poor Intellectual Ability: Poor Physical Health: Poor Social Skills: Fair Stability in Family: Good Stability in School/Work: Poor Verbal Skills: Fair Discharge Criteria Discharge Criteria: No need for close observ., Adequate arrangements @DC, Improved behavior, Improved mood/thought Preliminary Discharge Plan Preliminary DC Plan: [facility] Special Precautions Fall Risk: Moderate Initial D/C Plan Pt to return to rehab at [place] Identified Discharge Needs: Updates to [place] for return to placement. Currently Utilized Resources Currently Utilized Resources/P: Primary Care Physician Referrals Community Resources: Need for psychiatrist Identified Problems/Hx/Goals Objectives/Short-Term Goals Short Term Goals: Dec. Aggression, Dec. Outbursts, Medication Stabilization, Monitor Med Effects, Promote Coping Skill Short Term Goals in Patient's: N/A Interventions/Frequency Staff Interventions/Frequency&: Psychiatrist to assess pt at least 3x per week for medication management. Charger Operator Helper to assess pt at least 2x per week for discharge planning and potential barriers. Nursing to assess medication reactions, behavioral management and complete 15 minute checks daily Encourage group participation in activities (if applicable) or 1:1 engagement based of activity dept assessment. 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 Treatment Plan Explained Patient/Sign Language Translator had this treatment plan explained to him/her as indicated by the signature below and has been given the opportunity to ask questions and make suggestions: Date: Patient/Sign Language Translator Signature: Status Update Update WEEKLY UPDATE/NOTE: Peter has been averaging 75% of meal intakes and 6.5 hours of sleep at night. he has been pleasantly confused, wanders about the unit. He naps during the day. Peter tends appears to be affected by sun downing. Peter will d/c to [facility] on 07/31/20. SW is in the process of coordinating upcoming d/c. LETY CROCKER Jul 29, 2020 13:00
[2020-07-29] MEDS ORDERED: MIRT-37 PO (13:31)
[2020-07-29] MEDS ORDERED: MELA3TAB43 PO (13:31)
[2020-07-29] MEDS ORDERED: QUET25TA5 PO (13:34)
[2020-07-29] MEDS ORDERED: SERT50TA PO (13:35)
[2020-07-29] MEDS ORDERED: MAG30ORA2 PO (13:37)
[2020-07-29] MEDS ORDERED: MAGN24003 PO (13:38)
[2020-07-29] MEDS ORDERED: METH28OI2 TP (13:39)
[2020-07-29 15:50] VITALS: BP 91/60
[2020-07-29] MEDS: MIRTAZAPINE 7.5 MG TABLET. PO SCH (20:37)
[2020-07-29] MEDS: MELATONIN 3 MG TABLET PO SCH (20:37)
[2020-07-29] MEDS: ACETAMINOPHEN 500 MG TABLET PO SCH (20:37)
--- NOTE | 2020-07-29 21:01 | PDOC ---
Exam Note: Wiliam Note: Please also refer to the separate dictated note~for this date of service dictated separately.~Patient seen individually. Discussed the patient with Nursing staff reviewed the chart.~Reviewed interim history and current functioning. Reviewed vital signs,~Labs/ Radiology~and current medications noted below. Continue current treatment with the changes noted in the dictated addendum note Assessment: Vital Signs/I&O: Vital Signs Date Time Temp Pulse Resp B/P (MAP) Pulse Ox O2 Delivery O2 Flow Rate FiO2 07/29/20 15:50 98.3 84 16 91/60 (70) 91 07/26/20 15:00 Room Air I & O 07/28/20 07/28/20 07/29/20 15:00 23:00 07:00 Intake Total 600 ml 540 ml Balance 600 ml 540 ml Current Medications: I have reviewed the current psychotropics carefully including drug interactions. Risk benefit ratio favors no change other than as noted in my dictated progress note. Diagnosis: Problems: (1) Impulse control disorder, unspecified (2) Anxiety disorder, unspecified (3) Dementia, vascular, with depression (4) Dementia, vascular, with delusions (5) Dementia in Alzheimer's disease with depression (6) Dementia in Alzheimer's disease with delusions (7) Dementia of the Alzheimer's type with early onset with behavioral disturbance (8) Major neurocognitive disorder SHANE MCGOWAN MD Jul 29, 2020 21:01
[2020-07-30 05:43] VITALS: BP 111/74
[2020-07-30] MEDS: LIDOCAINE (700MG/PATCH) PATCH. TP SCH (09:00)
[2020-07-30] MEDS: SERTRALINE 25 MG TABLET. PO SCH (09:26)
[2020-07-30] MEDS: LACTOBACILLUS RHAMNOSUS GG 1 CAPSULE. PO SCH ×2 (09:26→19:53)
[2020-07-30] MEDS: QUEtiapine 25 MG TABLET. PO SCH ×2 (09:27→17:07)
[2020-07-30] MEDS: MULTIVITAMIN with MINERAL TABLET. PO SCH (09:27)
[2020-07-30] MEDS: FAMOTIDINE 20 MG TABLET PO SCH ×2 (09:27→19:53)
[2020-07-30 15:44] VITALS: BP 99/52
[2020-07-30] MEDS: ACETAMINOPHEN 500 MG TABLET PO SCH (19:53)
[2020-07-30] MEDS: MELATONIN 3 MG TABLET PO SCH (19:54)
[2020-07-30] MEDS: MIRTAZAPINE 7.5 MG TABLET. PO SCH (19:54)
[2020-07-30] MEDS: traZODone 50 MG TABLET. PO PRN (19:54)
--- NOTE | 2020-07-30 21:02 | PDOC ---
Exam Note: Wiliam Note: This note is a late entry for 07/28/2020 covers elements not covered in my initial note. Subjective: The patient was seen face to face in the evening of 07/28/2020 with Kait CEBALLOS. Discussed with nursing staff, reviewed the chart. He slept 5 hours previous night. In the morning he was wandering, looking for his daughter, confused. Late in the evening as I met with him, he seemed somewhat paranoid, stopped me and said there were things happening but he did not want me to ask the nursing staff because otherwise they will know he was telling on them and seemed suspicious. Later when I met with him again he seemed better. Review of Systems: No CV, , pulmonary, eye, ENT system symptoms on review. Mental Status Exam: The patient is oriented to himself. Insight and judgment, recent and remote memory, attention and concentration, fund of knowledge is poor consistent with his diagnoses. Laboratory Data: Reviewed. Impression: Major neurocognitive disorder Alzheimer, vascular with delusion, depression, behavioral disturbance. Anxiety disorder unspecified. Impulse control disorder unspecified. Plan: Continue current psychotropics from initial note. Assessment: Vital Signs/I&O: Vital Signs Date Time Temp Pulse Resp B/P (MAP) Pulse Ox O2 Delivery O2 Flow Rate FiO2 07/30/20 15:44 97.8 85 18 99/52 (68) 97 07/26/20 15:00 Room Air I & O 07/29/20 07/29/20 07/30/20 15:00 23:00 07:00 Intake Total 320 ml 120 ml Balance 320 ml 120 ml Current Medications: I have reviewed the current psychotropics carefully including drug interactions. Risk benefit ratio favors no change other than as noted in my dictated progress note. Diagnosis: Problems: (1) Impulse control disorder, unspecified (2) Anxiety disorder, unspecified (3) Dementia, vascular, with depression (4) Dementia, vascular, with delusions (5) Dementia in Alzheimer's disease with depression (6) Dementia in Alzheimer's disease with delusions (7) Dementia of the Alzheimer's type with early onset with behavioral disturbance (8) Major neurocognitive disorder SHANE MCGOWAN MD Jul 30, 2020 21:02
--- NOTE | 2020-07-30 21:27 | PDOC ---
Exam Note: Wiliam Note: This note is a late entry for 07/29/2020 covers elements not covered in my initial note. Subjective: The patient was seen on telehealth rounds in the morning of 07/29/2020 for treatment team meeting with Genesis Pérez and Jinny, social work therapist, Alexa, activity therapy, and Sarah CEBALLOS. Discussed with nursing staff, reviewed the chart. He slept 2-1/2 hours previous night. He remains confused. We will make sure we use trazodone tonight to help him sleep. He was refused readmission from [place] per social service staff and will be transitioning to [facility] and stable. Review of Systems: No CV, , pulmonary, eye, ENT system symptoms on review. Mental Status Exam: The patient is oriented to himself. Insight and judgment, recent and remote memory, attention and concentration, fund of knowledge is poor consistent with his diagnoses. Laboratory Data: Reviewed. Impression: Major neurocognitive disorder Alzheimer, vascular with delusion, depression, behavioral disturbance. Anxiety disorder unspecified. Impulse control disorder unspecified. Plan: Continue current psychotropics from initial note. Assessment: Vital Signs/I&O: Vital Signs Date Time Temp Pulse Resp B/P (MAP) Pulse Ox O2 Delivery O2 Flow Rate FiO2 07/30/20 15:44 97.8 85 18 99/52 (68) 97 07/26/20 15:00 Room Air I & O 07/29/20 07/29/20 07/30/20 15:00 23:00 07:00 Intake Total 320 ml 120 ml Balance 320 ml 120 ml Current Medications: I have reviewed the current psychotropics carefully including drug interactions. Risk benefit ratio favors no change other than as noted in my dictated progress note. Diagnosis: Problems: (1) Impulse control disorder, unspecified (2) Anxiety disorder, unspecified (3) Dementia, vascular, with depression (4) Dementia, vascular, with delusions (5) Dementia in Alzheimer's disease with depression (6) Dementia in Alzheimer's disease with delusions (7) Dementia of the Alzheimer's type with early onset with behavioral disturbance (8) Major neurocognitive disorder SHANE MCGOWAN MD Jul 30, 2020 21:27
--- NOTE | 2020-07-30 21:36 | PDOC ---
Exam Note: Wiliam Note: Please also refer to the separate dictated note~for this date of service dictated separately.~Patient seen individually. Discussed the patient with Nursing staff reviewed the chart.~Reviewed interim history and current functioning. Reviewed vital signs,~Labs/ Radiology~and current medications noted below. Continue current treatment with the changes noted in the dictated addendum note Assessment: Vital Signs/I&O: Vital Signs Date Time Temp Pulse Resp B/P (MAP) Pulse Ox O2 Delivery O2 Flow Rate FiO2 07/30/20 15:44 97.8 85 18 99/52 (68) 97 07/26/20 15:00 Room Air I & O 07/29/20 07/29/20 07/30/20 15:00 23:00 07:00 Intake Total 320 ml 120 ml Balance 320 ml 120 ml Current Medications: I have reviewed the current psychotropics carefully including drug interactions. Risk benefit ratio favors no change other than as noted in my dictated progress note. Diagnosis: Problems: (1) Impulse control disorder, unspecified (2) Anxiety disorder, unspecified (3) Dementia, vascular, with depression (4) Dementia, vascular, with delusions (5) Dementia in Alzheimer's disease with depression (6) Dementia in Alzheimer's disease with delusions (7) Dementia of the Alzheimer's type with early onset with behavioral disturbance (8) Major neurocognitive disorder SHANE MCGOWAN MD Jul 30, 2020 21:36
[2020-07-31 06:13] VITALS: BP 130/74
--- NOTE | 2020-07-31 08:07 | PDOC ---
Exam Note: Wiliam Note: This note is a late entry for 07/30/2020 covers elements not covered in my initial note. Subjective: The patient was seen on telehealth rounds in the evening of 07/30/2020 with Sarah CEBALLOS. Discussed with nursing staff, reviewed the chart. The patient slept much better last night. He was up in about in the morning. He seemed to do better since he got the trazodone last night. We will repeat it again today and then change it to p.r.n. He took a nap in the afternoon. He has not been agitated or aggressive. Review of Systems: No CV, , pulmonary, eye, ENT system symptoms on review. Mental Status Exam: The patient is oriented to himself. Insight and judgment, recent and remote memory, attention and concentration, fund of knowledge is poor consistent with his diagnoses. He is pleasant as I met with him. Often verbal response is monosyllabic. Laboratory Data: Reviewed. Impression: Major neurocognitive disorder Alzheimer, vascular with delusion, depression, behavioral disturbance. Anxiety disorder unspecified. Impulse control disorder unspecified. Plan: Continue current psychotropics from initial note. Assessment: Vital Signs/I&O: Vital Signs Date Time Temp Pulse Resp B/P (MAP) Pulse Ox O2 Delivery O2 Flow Rate FiO2 07/31/20 06:13 97.9 98 18 130/74 (92) 95 Room Air I & O 07/30/20 07/30/20 07/31/20 15:00 23:00 07:00 Intake Total 960 ml 240 ml Balance 960 ml 240 ml Current Medications: I have reviewed the current psychotropics carefully including drug interactions. Risk benefit ratio favors no change other than as noted in my dictated progress note. Diagnosis: Problems: (1) Impulse control disorder, unspecified (2) Anxiety disorder, unspecified (3) Dementia, vascular, with depression (4) Dementia, vascular, with delusions (5) Dementia in Alzheimer's disease with depression (6) Dementia in Alzheimer's disease with delusions (7) Dementia of the Alzheimer's type with early onset with behavioral disturbance (8) Major neurocognitive disorder SHANE MCGOWAN MD Jul 31, 2020 08:07
--- NOTE | 2020-07-31 20:43 | PDOC ---
Exam Note: Wiliam Note: Please also refer to the separate dictated note~for this date of service dictated separately.~Patient seen individually. Discussed the patient with Nursing staff reviewed the chart.~Reviewed interim history and current functioning. Reviewed vital signs,~Labs/ Radiology~and current medications noted below. Continue current treatment with the changes noted in the dictated addendum note Assessment: Vital Signs/I&O: Vital Signs Date Time Temp Pulse Resp B/P (MAP) Pulse Ox O2 Delivery O2 Flow Rate FiO2 07/31/20 06:13 97.9 98 18 130/74 (92) 95 Room Air I & O 07/30/20 07/30/20 07/31/20 15:00 23:00 07:00 Intake Total 960 ml 240 ml Balance 960 ml 240 ml Current Medications: I have reviewed the current psychotropics carefully including drug interactions. Risk benefit ratio favors no change other than as noted in my dictated progress note. 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
--- NOTE | 2020-08-01 07:58 | DS ---
DATE OF DISCHARGE: 07/31/2020 DISCHARGE SUMMARY AND PSYCHIATRIC PROGRESS NOTE This is a late entry date of service 07/31/2020 covers elements not covered in my initial note. REASON FOR ADMISSION: Please refer to the admission history for details. Briefly, the patient is an 84-year-old male from [facility], referred to us from [facility] where he was admitted for medical stabilization. The patient has significant cognitive deficits, consequent to major neurocognitive disorder, Alzheimer, vascular with delusion, depression, behavioral disturbance. He had been cursing at staff, agitated, pulling his leads off, pacing, disrobing, uncooperative, psychotic, but resistive with cares. He had failed outpatient psychiatric interventions resulting in this referral. SIGNIFICANT FINDINGS AND CLINICAL COURSE: Following admission, the patient was seen daily individually by myself from a psychiatric standpoint, medical followup with Dr. Rodriges/Dr. Almanza. The patient remained confused initially, anxious, irritable, disruptive, paranoid. Adjustments were made in the psychotropics and he seemed to be doing better on a combination of Zoloft 50 mg a day, Remeron 7.5 mg at bedtime, Seroquel 12.5 mg b.i.d., melatonin 3 mg at bedtime, Zyprexa p.r.n., trazodone 50 mg at bedtime p.r.n. At this stage, he turned up positive for the COVID-19 on the weekly screen that were being done on all patients and was transitioned to the COVID unit for isolation. REVIEW OF SYSTEMS: Prior to discharge, 07/31/2020, no CV, , pulmonary, eye, ENT system symptoms on review. Reliability poor. MENTAL STATUS EXAM: Oriented to himself. Insight, judgment, recent and remote memory, attention, concentration, fund of knowledge poor consistent with his diagnosis. FINAL DIAGNOSES: Major neurocognitive disorder, Alzheimer, vascular with delusion, depression, behavioral disturbance; anxiety disorder, unspecified; impulse control disorder, unspecified; COVID-19 positive status. Rest no change from admission. DISCHARGE MEDICATIONS: Please refer to the MRAD. DISCHARGE INSTRUCTIONS: Psychiatric and medical followup on the medical/surgical floor. Time for discharge day management greater than 30 minutes. MAN Dolores MCGOWAN MD DR: BC/pasquale JOB#: [id number] / [id number]
== END 2020-07-31 07:01 | DRG 56 ==
LOC: GEROPSY 12:15
PROVIDERS: ADMIT Psychiatry & Neurology Psychiatry; ATTEND Psychiatry & Neurology Psychiatry
DX: G30.9 Alzheimer's disease, unspecified (principal); F01.51 Vascular dementia, unspecified severity, with behavioral disturbance; U07.1 COVID-19; F02.81 Dementia in other diseases classified elsewhere, unspecified severity, with behavioral disturbance; J93.9 Pneumothorax, unspecified; F63.9 Impulse disorder, unspecified; K21.9 Gastro-esophageal reflux disease without esophagitis; Z66 Do not resuscitate; Z79.899 Other long term (current) drug therapy; J43.9 Emphysema, unspecified; F41.9 Anxiety disorder, unspecified; G47.00 Insomnia, unspecified; F32.9 Major depressive disorder, single episode, unspecified
CPT/HCPCS: 36415; 80053; 80061; 82306; 82607; 83540; 83550; 83735; 84436; 84443; 84480; 85025; 85379; 86592; 93005; U0003; 92610; 97530

== ENCOUNTER 2020-07-31 06:45 | Inpatient (IN) | payer MEDICARE ==
[~2020-07-31] VITALS: Ht 162.6 cm; Wt 70.3 kg
[~2020-07-31 06:45] MED LIST changes: +MAG30ORA2 PO; +MAGN24003 PO; +MELA3TAB43 PO; +METH28OI2 TP; +MIRT-37 PO; +SERT50TA PO
--- NOTE | 2020-07-31 08:00 | NUR ---
Patient remained relatively docile and sleepy throughout the day. When woken patient would have word salad speech, be verbally aggressive, and repeat words over and over. Patient needs x1 assist to eat and is incontinent.
[2020-07-31] MEDS ORDERED: MAG HYDROX/AL HYDROX/SIMETH 30 ML ORAL.SUSP PO PRN (08:45)
[2020-07-31] MEDS ORDERED: OLANZapine 2.5 MG TABLET PO PRN (08:45)
--- NOTE | 2020-07-31 09:03 | HP ---
ADMIT DATE: 07/31/2020 CHIEF COMPLAINT: We are asked to see this patient for admission from the [facility]. HISTORY OF PRESENT ILLNESS: The patient is an 84-year-old gentleman well known to me when I first saw him for screening 11 days ago. He was very agitated. He had elevated D-dimer. He had a large left-sided pneumothorax. He was sent to [facility]. He had been hemodynamically stable. It was decided not to place a chest tube since he was asymptomatic and he was returned back to the [facility]. Since that time, he has had a negative COVID coronavirus swab. However, the most recent one came back positive. He has been afebrile all this time. He has no new symptoms. He is chronically short of breath with exertion. The patient was then sent down here for admission and quarantine on the medical unit. PAST MEDICAL HISTORY: From the old chart. He has vascular dementia, delusional behavior, neurocognitive disorder and Alzheimer's disease. CURRENT MEDICATIONS: Reviewed. On the floor, he was taking Tylenol, diltiazem 240 daily, Pepcid, lactobacillus, Lidoderm patch, magnesium hydroxide, melatonin, methyl salicylate balm, Remeron 7.5 mg daily, multivitamin, Zyprexa, Seroquel, senna, trazodone and Zoloft. ALLERGIES: HE HAS AN ALLERGY TO ALLOPURINOL, EXACT REACTIONS UNCLEAR. SOCIAL HISTORY: He had been a smoker in the past. Nonsmoker and nondrinker. FAMILY HISTORY: Unfortunately unobtainable due to the patient's confusion. REVIEW OF SYSTEMS: Unobtainable. I can glean from the previous charts from the [facility], he has not been symptomatic for the last 11 days. He has not been febrile. PHYSICAL EXAMINATION: GENERAL: When I saw him, this is a confused elderly gentleman. VITAL SIGNS: Initial vital signs on the database, he remains afebrile. HEENT: Head is without trauma. Pupils are reactive. Sclerae nonicteric. The oropharynx is clear. NECK: Supple, no bruits. LUNGS: Good breath sounds. CARDIOVASCULAR: Showed regular heart tones. No gallops. Peripheral pulses are palpable and full. ABDOMEN: Soft, scaphoid, nontender, no organomegaly. Bowel sounds are hypoactive. EXTREMITIES: Show no cyanosis or edema. NEUROLOGIC: Pleasantly confused. He is less agitated today. SKIN: Warm and dry. PERTINENT LABORATORY STUDIES: Reviewed from 07/27, hemoglobin is 13.6 g/dL with white count of 7700. Electrolytes are within normal range. Creatinine is 1.1 mg%. Liver panel unremarkable. Serology, he had negative coronavirus on the . He had one on admission. He had a positive one on 07/29, 2 days ago. ASSESSMENT: 1. An 84-year-old gentleman with positive coronavirus swab. At this time, he remains asymptomatic, he has no fevers, he is not in any obvious respiratory distress. 2. Profound dementia with behavior issues. 3. Recent diagnosis of pneumothorax. At that time, he was sent to [facility], elected not to treat him given his age and his dementia and send him back to [facility]. PLAN: 1. Admit to the medical unit. 2. Irons quarantine. 3. Follow up chest x-ray. 4. Continue same home meds. For now, given the lack of symptoms, I will hold off treating with the Decadron and anticoagulation. The risk of ___ anticoagulation outweighs the benefits. NIKITA STEPHENSON MD DR: DES/pasquale JOB#: [id number] / [id number]
[2020-07-31] MEDS ORDERED: METHYL SALICYLATE/MENTHOL TOPICAL OINTMENT 57GM TUBE. TP PRN (09:30)
[2020-07-31] MEDS ORDERED: MAGNESIUM HYDROXIDE 2,400 MG/30 ML ORAL.SUSP. PO PRN (09:30)
[2020-07-31] MEDS: LIDOCAINE (700MG/PATCH) PATCH. TP SCH (09:30)
--- NOTE | 2020-07-31 10:12 | RAD ---
EXAM: Chest, single view. HISTORY: Code 19. COMPARISON: 07/12/2020 FINDINGS: A frontal view of the chest obtained. There is mild diffuse increased right lung interstitial opacity likely due to interstitial infiltrate or chronic interstitial change superimposed on emphysema. There are multiple calcified granulomas. There is left upper lobe scarring or atelectasis. No pleural effusion or pneumothorax is seen. The heart is stable in size. IMPRESSION: Suspected right lung interstitial infiltrate or chronic interstitial changes superimposed on emphysema. No consolidated infiltrate is seen. Electronically signed by: Myah Dash MD (07/31/2020 10:10 AM) [facility]
[2020-07-31] MEDS: LACTOBACILLUS RHAMNOSUS GG 1 CAPSULE. PO SCH ×2 (10:43→20:10)
[2020-07-31] MEDS: FAMOTIDINE 20 MG TABLET PO SCH ×2 (10:43→20:10)
[2020-07-31] MEDS: QUEtiapine 25 MG TABLET. PO SCH ×2 (10:44→17:32)
[2020-07-31] MEDS: SERTRALINE 50 MG TABLET. PO SCH (10:44)
[2020-07-31] MEDS: MULTIVITAMIN with MINERAL TABLET. PO SCH (10:44)
[2020-07-31 10:52] VITALS: BP 109/70
--- NOTE | 2020-07-31 11:10 | NUR ---
NIMO returned call to Jonelle, senior director of strategy at [facility], and left her a message confirming that Peter's d/c was postponed due to Covid positive status. Requested return call from Jonelle to discuss the [facility]'s protocols for admission when a patient is positive. Awaiting return call. Call placed to Mary, /POA, to discuss plan now that Peter has tested Covid positive. Mary expressed that she still wants Peter to discharge to [facility] once he is safe to do so and has confirmed that his room will be held there. Provided Mary with 1S phone number so she can call nursing staff for updates on Peter's condition. NIMO will f/u on Monday with [facility] to determine d/c planning information. Addendum: 07/31/20 at 1121 by LETY SUERO NIMO cancelled transportation that had been arranged thru [facility] ([phone]).
[2020-07-31 15:34] VITALS: BP 97/63
[2020-07-31] MEDS: MELATONIN 3 MG TABLET PO SCH (20:10)
[2020-07-31] MEDS: ACETAMINOPHEN 500 MG TABLET PO SCH (20:10)
[2020-07-31 20:11] VITALS: BP 113/85
[2020-07-31] MEDS: MIRTAZAPINE 15 MG TABLET PO SCH (20:11)
[2020-07-31 22:58] VITALS: BP 97/57
[2020-08-01] MEDS: ACETAMINOPHEN 500 MG TABLET PO PRN (04:08)
--- NOTE | 2020-08-01 04:52 | NUR ---
Pt incontinent bladder through shift. Bed bath, linen change, and shaved.
[2020-08-01 05:06] VITALS: BP 120/71
[2020-08-01] MEDS: MULTIVITAMIN with MINERAL TABLET. PO SCH (08:44)
[2020-08-01] MEDS: LACTOBACILLUS RHAMNOSUS GG 1 CAPSULE. PO SCH ×2 (08:44→20:58)
[2020-08-01] MEDS: SERTRALINE 50 MG TABLET. PO SCH (08:44)
[2020-08-01] MEDS: SENNOSIDES/DOCUSATE 8.6/50MG TABLET. PO PRN ×2 (08:44→20:58)
[2020-08-01] MEDS: LIDOCAINE (700MG/PATCH) PATCH. TP SCH (08:44)
[2020-08-01] MEDS: FAMOTIDINE 20 MG TABLET PO SCH ×2 (08:44→20:58)
[2020-08-01] MEDS: QUEtiapine 25 MG TABLET. PO SCH ×2 (08:44→17:00)
--- NOTE | 2020-08-01 10:19 | PN ---
DATE: 08/01/2020 ATTENDING PHYSICIAN: Dr. Stephenson. SUBJECTIVE: No new complaints. No obvious distress. He is comfortable on room air. He is pleasantly confused and does not know time or place. OBJECTIVE FINDINGS: VITAL SIGNS: Blood pressure today is 120/71 mmHg, temperature 97.0 degrees Fahrenheit, pulse 91 and regular, oxygen saturation 94% on room air. HEENT: Head is without trauma. Pupils are reactive. Sclerae nonicteric. Oropharynx is clear. NECK: Supple, no bruits. No stridor. LUNGS: Otherwise clear. CARDIOVASCULAR: Showed regular heart tones. No gallops. ABDOMEN: Soft, no guarding or rebound tenderness. EXTREMITIES: Without edema. NEUROLOGIC: Focally intact. Speech is fluent. He is pleasantly confused. SKIN: Warm and dry. ASSESSMENT: 1. An 84-year-old gentleman with positive coronavirus swab from the [facility]. He is asymptomatic. His chest x-ray yesterday was clear. 2. Profound dementia with behavioral issues. 3. Recent diagnosis of spontaneous pneumothorax. His lungs were reexpanded. 4. Generalized debilitation. PLAN: 1. Home meds reviewed. 2. Continue quarantine on the medical unit. 3. Diet as tolerated. 4. He is a DNR per advanced directives. NIKITA STEPHENSON MD DR: DES/pasquale JOB#: [id number] / [id number]
[2020-08-01 11:00] VITALS: BP 106/70
[2020-08-01 15:25] VITALS: BP 93/58
[2020-08-01 19:15] VITALS: BP 93/60
[2020-08-01] MEDS: ACETAMINOPHEN 500 MG TABLET PO SCH (20:58)
[2020-08-01] MEDS: MELATONIN 3 MG TABLET PO SCH (20:58)
[2020-08-01] MEDS: MIRTAZAPINE 15 MG TABLET PO SCH (20:58)
--- NOTE | 2020-08-02 04:44 | NUR ---
Nursing note: Pt rested comfortably in bed through shift. Honey-thick liquids offered frequently. Gave PRN Senna to encourage BM.
[2020-08-02 05:35] VITALS: BP 128/74
[2020-08-02] MEDS: SERTRALINE 50 MG TABLET. PO SCH (07:38)
[2020-08-02] MEDS: LACTOBACILLUS RHAMNOSUS GG 1 CAPSULE. PO SCH ×2 (07:38→21:10)
[2020-08-02] MEDS: QUEtiapine 25 MG TABLET. PO SCH ×2 (07:38→17:00)
[2020-08-02] MEDS: FAMOTIDINE 20 MG TABLET PO SCH ×2 (07:38→21:09)
[2020-08-02] MEDS: MULTIVITAMIN with MINERAL TABLET. PO SCH (07:38)
[2020-08-02] MEDS: LIDOCAINE (700MG/PATCH) PATCH. TP SCH (07:40)
[2020-08-02 11:00] VITALS: BP 94/56
[2020-08-02 14:50] VITALS: BP 108/64
--- NOTE | 2020-08-02 19:28 | PN ---
DATE: 08/02/2020 ATTENDING PHYSICIAN: Dr. Stephenson. SUBJECTIVE: The patient is not in any obvious distress. He is awake, looking forward. He refuses to answer. He appears a bit catatonic this morning. OBJECTIVE FINDINGS: VITAL SIGNS: Blood pressure today is 128/74 mmHg, pulse is 85 and regular, temperature is 97.1 degrees Fahrenheit, oxygen saturation 95% on room air. HEENT: Head is without trauma. The pupils are reactive. Sclerae are nonicteric. The oropharynx is clear. NECK: Supple. There is no stridor. CARDIOVASCULAR: Showed regular heart tones. LUNGS: Good breath sounds without any wheezing, rales, or stridor. ABDOMEN: Soft, scaphoid, nontender, no organomegaly. Bowel sounds were hypoactive. EXTREMITIES: Showed no cyanosis or edema. NEUROLOGIC: Pleasantly confused. He refuses to respond this morning. SKIN: Warm and dry. ASSESSMENT: 1. An 84-year-old gentleman with positive coronavirus swab from the [facility]. He remains asymptomatic. His chest x-ray was entirely clear. 2. Profound dementia with behavioral issues. 3. Recent diagnosis spontaneous pneumothorax. Since then, his lungs had reexpanded. 4. Generalized debilitation. PLAN: 1. Continue to quarantine on the medical unit. 2. Diet as tolerated. 3. Home meds reviewed. 4. He remains a DNR per advanced directives. His has been checking in on him. NIKITA STEPHENSON MD DR: DES/pasquale JOB#: [id number] / [id number]
[2020-08-02 20:17] VITALS: BP 120/71
[2020-08-02] MEDS: traZODone 50 MG TABLET. PO PRN (21:09)
[2020-08-02] MEDS: MELATONIN 3 MG TABLET PO SCH (21:10)
[2020-08-02] MEDS: ACETAMINOPHEN 500 MG TABLET PO SCH (21:10)
[2020-08-02] MEDS: MIRTAZAPINE 15 MG TABLET PO SCH (21:10)
[2020-08-03 06:35] VITALS: BP 126/70
[2020-08-03] MEDS: LACTOBACILLUS RHAMNOSUS GG 1 CAPSULE. PO SCH ×2 (07:45→20:19)
[2020-08-03] MEDS: FAMOTIDINE 20 MG TABLET PO SCH ×2 (07:45→20:19)
[2020-08-03] MEDS: QUEtiapine 25 MG TABLET. PO SCH ×2 (07:45→16:51)
[2020-08-03] MEDS: MULTIVITAMIN with MINERAL TABLET. PO SCH (07:45)
[2020-08-03] MEDS: SERTRALINE 50 MG TABLET. PO SCH (07:46)
[2020-08-03] MEDS: LIDOCAINE (700MG/PATCH) PATCH. TP SCH (07:47)
[2020-08-03 11:06] VITALS: BP 110/78
--- NOTE | 2020-08-03 15:35 | NUR ---
Follow up call to Jonelle, director nicu at [facility]. [facility] is willing to re-evaluate Peter for admission/transfer after 14 days from his positive test date provided that symptoms have resolved. 14 days from positive test date will be 08/12/20.
[2020-08-03 16:37] VITALS: BP 115/72
[2020-08-03 20:09] VITALS: BP 107/66
[2020-08-03] MEDS: ACETAMINOPHEN 500 MG TABLET PO SCH (20:19)
[2020-08-03] MEDS: MELATONIN 3 MG TABLET PO SCH (20:19)
[2020-08-03] MEDS: MIRTAZAPINE 15 MG TABLET PO SCH (20:19)
--- NOTE | 2020-08-03 20:29 | PN ---
DATE: 08/03/2020 ATTENDING PHYSICIAN: Dr. Stephenson. SUBJECTIVE: Still refuses to answer. He is alert, staring straight ahead. He is not in any obvious distress. He is less catatonic today than yesterday. OBJECTIVE FINDINGS: VITAL SIGNS: Blood pressure today is 126/70, pulse 76 and regular, temperature 97.5 degrees Fahrenheit, oxygen saturation 94% on room air. HEENT: Head is without trauma. Pupils are reactive. Sclerae are nonicteric. NECK: Supple. No stridor. LUNGS: Otherwise clear with good breath sounds. CARDIOVASCULAR: Showed regular heart tones. No gallops. ABDOMEN: Soft, scaphoid, nontender. No organomegaly. Bowel sounds are hypoactive. EXTREMITIES: Showed no cyanosis or edema. NEUROLOGIC: Pleasantly confused. He refuses to speak still. SKIN: Warm and dry. ASSESSMENT: 1. An 84-year-old gentleman with positive coronavirus swab from the [facility]. He remains asymptomatic. Chest x-ray was clear. 2. Profound dementia with behavioral issues. 3. Recent diagnosis, spontaneous pneumothorax. Since then, his lungs have reexpanded. He has adequate saturation on room air. 4. Generalized debilitation. PLAN: 1. Continue quarantine to the medical unit. 2. Diet as tolerated. 3. Home meds reviewed. 4. He remains DNR per advanced directives. NIKITA STEPHENSON MD DR: DES/pasquale JOB#: [id number] / [id number]
--- NOTE | 2020-08-03 21:00 | NUR ---
It was reported to this nurse that patient had "coffee ground emesis" at 0615 this morning. Patient has not had any emesis this shift. Will continue to monitor.
--- NOTE | 2020-08-04 01:54 | NUR ---
Patient has had frequent BMs, stools are soft and pasty. Patient laying in bed watching television during med pass. He was cooperative with assessment but briefly resistive with medications. Medications given crushed in vanilla pudding, followed by honey thick apple juice. Patient is oriented self, answers to name and unable to answer any other questions. Patient has been sleeping soundly when checked.
[2020-08-04 05:05] VITALS: BP 115/68
[2020-08-04] MEDS: FAMOTIDINE 20 MG TABLET PO SCH ×3 (09:00→21:03)
[2020-08-04] MEDS: SERTRALINE 50 MG TABLET. PO SCH ×2 (09:00→09:28)
[2020-08-04] MEDS: QUEtiapine 25 MG TABLET. PO SCH ×3 (09:00→17:10)
[2020-08-04] MEDS: LACTOBACILLUS RHAMNOSUS GG 1 CAPSULE. PO SCH ×3 (09:00→21:03)
[2020-08-04] MEDS: MULTIVITAMIN with MINERAL TABLET. PO SCH ×2 (09:00→09:28)
[2020-08-04] MEDS: LIDOCAINE (700MG/PATCH) PATCH. TP SCH (09:28)
[2020-08-04 11:12] VITALS: BP 118/76
[2020-08-04 15:58] VITALS: BP 117/79
[2020-08-04] MEDS: ACETAMINOPHEN 500 MG TABLET PO PRN (16:37)
--- NOTE | 2020-08-04 18:39 | NUR ---
NURSING NOTE: PT IN BED UPON MEDICATION ADMINISTRATION AND ASSESSMENT. PT REFUSED AM MEDICATIONS. PT RESTING IN BED TODAY. PT ATE MEALS WITH SUPERVISION. WILL CONTINUE TO MONITOR. TUCKER FRANCO
[2020-08-04 19:59] VITALS: BP 91/59
--- NOTE | 2020-08-04 20:32 | PN ---
DATE: 08/04/2020 ATTENDING PHYSICIAN: Dr. Stephenson. SUBJECTIVE: The patient has a blank stare. He is in no acute distress. He remains still catatonic today. OBJECTIVE FINDINGS: VITAL SIGNS: Blood pressure today is 115/68 mmHg, pulse 85 and regular, temperature 98.2 degrees Fahrenheit, oxygen saturation 94% on room air. HEENT: Head is without trauma. Pupils are reactive. Sclerae are nonicteric. Oropharynx clear. NECK: Supple. LUNGS: Otherwise clear to auscultation. CARDIOVASCULAR: Showed regular heart tones. ABDOMEN: Soft, scaphoid, nontender, no liver or spleen enlargement. Bowel sounds were normoactive. EXTREMITIES: Showed no cyanosis or edema. NEUROLOGIC: Pleasantly confused. He refuses to speak. SKIN: Warm and dry. ASSESSMENT: 1. An 84-year-old gentleman with positive coronavirus swab from the [facility]. He remains asymptomatic. Initial chest x-ray was clear. 2. Profound dementia with behavior issues. 3. Recent diagnosis of spontaneous pneumothorax. Since then, his lungs have reexpanded. He has adequate saturations on room air. 4. Generalized debilitation. PLAN: 1. Continue quarantine in the medical unit. 2. Diet as tolerated. 3. Home meds reviewed. 4. He remains a DNR per advanced directive. NIKITA STEPHENSON MD DR: DES/pasquale JOB#: [id number] / [id number]
[2020-08-04] MEDS: MIRTAZAPINE 15 MG TABLET PO SCH (21:03)
[2020-08-04] MEDS: ACETAMINOPHEN 500 MG TABLET PO SCH (21:08)
[2020-08-04] MEDS: MELATONIN 3 MG TABLET PO SCH (21:08)
--- NOTE | 2020-08-04 22:22 | NUR ---
Patient in his room watching tv when nurse entered the room, it was a show about [employer] [place], patient looked at nurse and said "I really like them GUYS" and then said some unintelligible things. Patient has some expressive aphasia and is oriented to self only. When his name is called he can answer to his name but cannot answer any questions. Patient compliant with medications crushed in chocolate pudding. Nurse fed patient a container of chocolate pudding and assisted him to drink honey thick water. Patients dinner tray was in room, he had only eaten 25%. Patient was cooperative with assessment.
[2020-08-05 08:00] VITALS: BP 119/80
[2020-08-05] MEDS: LACTOBACILLUS RHAMNOSUS GG 1 CAPSULE. PO SCH ×2 (09:45→21:29)
[2020-08-05] MEDS: FAMOTIDINE 20 MG TABLET PO SCH ×2 (09:45→21:28)
[2020-08-05] MEDS: QUEtiapine 25 MG TABLET. PO SCH ×2 (09:46→17:00)
[2020-08-05] MEDS: MULTIVITAMIN with MINERAL TABLET. PO SCH (09:46)
[2020-08-05] MEDS: SERTRALINE 50 MG TABLET. PO SCH (09:46)
[2020-08-05] MEDS: LIDOCAINE (700MG/PATCH) PATCH. TP SCH (09:48)
[2020-08-05 19:43] VITALS: BP 100/60
[2020-08-05] MEDS: traZODone 50 MG TABLET. PO PRN (21:28)
[2020-08-05] MEDS: MELATONIN 3 MG TABLET PO SCH (21:28)
[2020-08-05] MEDS: MIRTAZAPINE 15 MG TABLET PO SCH (21:29)
[2020-08-05] MEDS: ACETAMINOPHEN 500 MG TABLET PO SCH (21:29)
[2020-08-05] MEDS: ACETAMINOPHEN 500 MG TABLET PO PRN (22:38)
[2020-08-05 22:50] VITALS: BP 108/64
--- NOTE | 2020-08-06 00:56 | PN ---
DATE: 08/05/2020 SUBJECTIVE: The patient is an 84-year-old male patient who is currently on quarantine. He apparently tested positive for coronavirus by PCR on 07/29/2020. He is demented and does not really give any useful information. However, when I examined him this afternoon, he was resting, slightly propped up in bed, constantly hiccupping. On questioning him, he denied any complaint. PHYSICAL EXAMINATION: GENERAL: When I examined him, he looked well and was clearly in no apparent respiratory distress. No pallor, jaundice, cyanosis or thyromegaly. No jugular venous distention or limb edema. VITAL SIGNS: Her heart rate was 109, blood pressure 119/80, temperature was 95.9, respiratory rate was 20, and oxygen saturation was 89-90% on room air. HEAD, EYES, EARS, NOSE AND THROAT: Showed normocephalic, atraumatic. NECK: Supple. HEART: Showed normal first and second heart sounds. No gallop, rub or murmur. CHEST: Showed central trachea, equal bilateral chest expansion, air entry, vesicular breath sounds. No crepitation or rhonchi. ABDOMEN: Distended, soft, nontender. NEUROLOGIC: He is extremely severely demented, but without any obvious lateralizing sign. His last lab works were done on 07/27/2020. His chest x-ray at that time showed suspected right lung interstitial infiltrate or chronic interstitial changes, superimposed on emphysema. No consolidating infiltrate is seen. ASSESSMENT: 1. An 84-year-old gentleman with positive coronavirus swab from [facility]. He remains asymptomatic, afebrile. His chest x-ray showed no evidence of infiltrate. 2. Profound dementia with behavioral disturbances. 3. Recent diagnosis of spontaneous pneumothorax and his lung has completely expanded. His oxygen saturation rate on this afternoon was 89-90%. 4. Generalized debilitation. 5. Dysphagia. PLAN: To continue with quarantine in the medical unit. Continue diet as tolerated. Continue with all his medication. He remains a DNR. Advanced directive. I will repeat his lab work that seems to be probably dehydrated and has constant hiccupping for which I might add baclofen as a drug of choice after repeating his chest x-ray and his lab work. KELLI MENSAH MD DR: CALI/pasquale JOB#: [id number] / [id number]
[2020-08-06] MEDS: ACETAMINOPHEN 650 MG SUPP.RECT. PR PRN ×2 (06:19→20:07)
[2020-08-06 06:29] LABS: HEMOGLOBIN 13.3 g/dL (13.0-17.5); RED BLOOD COUNT 4.94 x10^6/uL (4.30-5.70); RED CELL DISTRIBUTION WIDTH 14.5 % (11.5-14.5); WHITE BLOOD COUNT 9.3 x10^3/uL (4.0-11.0)
--- NOTE | 2020-08-06 06:39 | RAD ---
CHEST AP ONLY INDICATION: Reason: HYPOXIA AND HISTORY OF SPONTANEOUS PNEUMOTHORAX / Spl. Instructions: / History: . COMPARISON STUDY: 07/31/2020. FINDINGS: Rotation to the right. Lungs: Normal lung volume. Increased right mid and lower lung opacities. Numerous bilateral calcified pulmonary granulomas. Stable left apical opacities. Right apicolateral lung skin fold Pleura: No pleural effusion or pneumothorax. Heart and Mediastinum: Stable cardiomediastinal silhouette and great vessels. IMPRESSION: Increasing right mid and lower lung opacities, which may represent an infectious/inflammatory process. Electronically signed by: Jeremi Baldwin MD (08/06/2020 6:36 AM) [facility]
[2020-08-06 06:51] LABS: ALBUMIN 2.2 g/dL (3.4-5.0); ALBUMIN/GLOBULIN RATIO 0.5 (1.0-1.7); CALCIUM 8.8 mg/dL (8.5-10.1); CREATININE 1.2 mg/dL (0.7-1.3); POTASSIUM 3.4 mmol/L (3.5-5.1); TOTAL BILIRUBIN 0.4 mg/dL (0.2-1.0)
--- NOTE | 2020-08-06 07:38 | NUR ---
PT IN RESPIRATORY DISTRESS, REQUIRING SUPPLEMENTAL O2 AT 5L VIA NC. FEBRILE WITH TEMP OF 101.8 AXILLARY, PRN TYLENOL SUPPOSITORY GIVEN. DR. EMNSAH NOTIFIED OF PT STATUS AND MORNING LAB VALUES. NEW ORDERS RECEIVED FOR ZOSYN AND VANCOMYCIN, SEE EMAR.
[2020-08-06] MEDS ORDERED: VANCOMYCIN 1.75 GM in IV NORMAL SALINE 500ML 500 ML IV ONE (09:00)
[2020-08-06] MEDS: PIPERACILLIN/TAZOBACTAM 3.375 GM in IV NORMAL SALINE 50ML 50 ML IV SCH ×3 (10:24→21:48)
[2020-08-06] MEDS: FAMOTIDINE 20 MG TABLET PO SCH ×2 (10:25→20:22)
[2020-08-06] MEDS: SERTRALINE 50 MG TABLET. PO SCH (10:25)
[2020-08-06] MEDS: QUEtiapine 25 MG TABLET. PO SCH ×2 (10:26→17:00)
[2020-08-06] MEDS: LACTOBACILLUS RHAMNOSUS GG 1 CAPSULE. PO SCH ×2 (10:26→20:22)
[2020-08-06] MEDS: MULTIVITAMIN with MINERAL TABLET. PO SCH (10:26)
[2020-08-06] MEDS: LIDOCAINE (700MG/PATCH) PATCH. TP SCH (10:27)
[2020-08-06 10:58] VITALS: BP 89/53
[2020-08-06 12:10] VITALS: BP 92/59
[2020-08-06] MEDS: VANCOMYCIN PER PHARMACY MC PRN (15:06)
[2020-08-06 15:12] VITALS: BP 87/54
--- NOTE | 2020-08-06 15:23 | NUR ---
Pharmacy Vancomycin Dosing Note S:Consulted to monitor and dose vancomycin started 08/06/20. O:JUAN ANTONIO GEORGE is a 84 year old M with HCAP Height: 5 feet, 4 inches Weight: 70.3 kg Dosing Weight: Actual Other Antibiotics: ZOSYN 3.375MG Q6H LABS: Last BUN: 25 Last Creatinine: 1.2 Creatinine Clearance: 39.7 Last WBC: 9.3 Vancomycin Dosing: Loading Dose: 1750 mg x1 Dosing Weight: Actual Target Trough: 15-20 A: Based on: patient with HCAP and CrCl of 39.7 P: 1. Begin Vancomycin 1000 mg IV q24h 2. Follow up Trough level on 08/08/20 at 0930 3. Pharmacy will continue to monitor, follow and adjust therapy as needed. NAVEED JARA, 08/06/20 1523
[2020-08-06 17:34] LABS: BGAS PH 7.51 (7.35-7.46)
[2020-08-06] MEDS ORDERED: chlorproMAZINE IM 50 MG/2 ML AMPUL IM PRN (18:00)
--- NOTE | 2020-08-06 18:03 | NUR ---
NURSING NOTE: THIS RN ASSUMED CARE OF PT AT 1500. PT RESTING IN BED. PT LABORED BREATHING. PT O2 WAS LOW, ABGS ORDERED, CRITICAL RESULT RECEIVED FOR PO2, DR MENSAH NOTIFIED, RT INCREASED O2 TO 6L. PT RESTING IN BED. WILL CONTINUE TO MONITOR. TUCKER FRANCO
[2020-08-06] MEDS ORDERED: IV NORMAL SALINE 1,000ML 1,000 ML IV ONE (18:15)
[2020-08-06] MEDS ORDERED: DEXAMETHASONE SOD PHOS 10 MG/ML VIAL. IV ONE (18:30)
[2020-08-06] MEDS: IV DEXTROSE 5 %-0.45 % NACL 1,000 ML IV SCH (19:00)
[2020-08-06] MEDS: ACETAMINOPHEN 500 MG TABLET PO SCH (20:21)
[2020-08-06 20:22] VITALS: BP 103/59
[2020-08-06] MEDS: MELATONIN 3 MG TABLET PO SCH (20:22)
[2020-08-06] MEDS: MIRTAZAPINE 15 MG TABLET PO SCH (20:22)
[2020-08-06 22:38] VITALS: BP 96/54
[2020-08-07] MEDS: PIPERACILLIN/TAZOBACTAM 3.375 GM in IV NORMAL SALINE 50ML 50 ML IV SCH ×3 (02:41→14:13)
[2020-08-07] MEDS: ACETAMINOPHEN 650 MG SUPP.RECT. PR PRN (02:41)
[2020-08-07 05:08] VITALS: BP 103/70
[2020-08-07] MEDS: LACTOBACILLUS RHAMNOSUS GG 1 CAPSULE. PO SCH (07:40)
[2020-08-07] MEDS: LIDOCAINE (700MG/PATCH) PATCH. TP SCH (07:40)
[2020-08-07] MEDS: MULTIVITAMIN with MINERAL TABLET. PO SCH (07:41)
[2020-08-07] MEDS: SERTRALINE 50 MG TABLET. PO SCH (07:41)
[2020-08-07] MEDS: QUEtiapine 25 MG TABLET. PO SCH (07:41)
[2020-08-07] MEDS: FAMOTIDINE 20 MG TABLET PO SCH (07:41)
[2020-08-07] MEDS: IV DEXTROSE 5 %-0.45 % NACL 1,000 ML IV SCH (07:43)
--- NOTE | 2020-08-07 08:53 | PDOC ---
Exam Note: Wiliam Note: This is a late entry for 08/06/2020. Please also refer to the separate dictated note~for this date of service dictated separately.~Patient seen individually. Discussed the patient with Monica CEBALLOS reviewed the chart.~Reviewed interim history and current functioning. Reviewed vital signs,~Labs/ Radiology~and curre nt medications noted below. Continue current treatment with the changes noted in the dictated addendum note Assessment: Vital Signs/I&O: Vital Signs Date Time Temp Pulse Resp B/P (MAP) Pulse Ox O2 Delivery O2 Flow Rate FiO2 08/07/20 07:41 70 103/70 08/07/20 05:08 97.1 24 93 Venturi Mask 15.0 I & O 08/06/20 08/06/20 08/07/20 15:00 23:00 07:00 Intake Total 0 ml 0 ml Balance 0 ml 0 ml Labs: Laboratory Tests Test 08/06/20 17:20 Blood pH 7.51 (7.35-7.46) H Blood Gas PCO2 28 mmHg (35-46) L Blood Gas PO2 43 mmHg (71-100) *L Blood Gas HCO3 23 mmol/L (21-28) Arterial Bld O2 Saturation (Calc) 86 % (92-99) L FiO2 40 % Current Medications: Meds: Current Medications Medications (Trade) Dose Ordered Sig/Segun Route PRN Reason Start Time Stop Time Status Last Admin Dose Admin Vancomycin HCl 1.75 gm/Sodium Chloride 500 ml @ 250 mls/hr 1X ONCE IV 08/06/20 09:00 08/06/20 10:59 DC 08/06/20 10:25 Chlorpromazine HCl (Thorazine Im) 25 mg PRN Q6HRS PRN IM HICCUPS 08/06/20 18:00 08/07/20 02:43 Sodium Chloride 1,000 ml @ 1,000 mls/hr 1X ONCE IV 08/06/20 18:15 08/06/20 19:14 DC 08/06/20 18:26 Dextrose/Sodium Chloride 1,000 ml @ 75 mls/hr [id number] IV 08/06/20 19:00 08/07/20 07:43 Dexamethasone Sodium Phosphate (Decadron) 10 mg 1X ONCE IV 08/06/20 18:30 08/06/20 18:31 DC 08/06/20 18:27 Dexamethasone Sodium Phosphate (Decadron) 6 mg DAILY IVP 08/07/20 09:00 08/07/20 07:42 I have reviewed the current psychotropics carefully including drug interactions. Risk benefit ratio favors no change other than as noted in my dictated progress note. Diagnosis: Problems: (1) Impulse control disorder, unspecified (2) Anxiety disorder, unspecified (3) Dementia, vascular, with depression (4) Dementia, vascular, with delusions (5) Dementia in Alzheimer's disease with depression (6) Dementia in Alzheimer's disease with delusions (7) Dementia of the Alzheimer's type with early onset with behavioral disturbance (8) Major neurocognitive disorder (9) COVID-19 virus infection SHANE MCGOWAN MD Aug 07, 2020 08:53
[2020-08-07] MEDS ORDERED: DEXAMETHASONE SOD PHOS 4 MG/ML VIAL. IVP SCH (09:00)
[2020-08-07] MEDS ORDERED: IV NORMAL SALINE 1,000ML 1,000 ML IV ONE (09:30)
[2020-08-07 09:54] LABS: BASO % 0 % (0-3); EOS % 0 % (0-3); HEMATOCRIT 35.9 % (39.0-53.0); HEMOGLOBIN 11.2 g/dL (13.0-17.5); LYMPH # 0.3 x10^3/uL (1.0-4.8); LYMPH % 2 % (24-48); MEAN CORPUSCULAR HEMOGLOBIN 26 pg (25-35); MEAN CORPUSCULAR HGB CONC 31 g/dL (31-37); MEAN CORPUSCULAR VOLUME 84 fL (79-100); MONO # 0.3 x10^3/uL (0.0-1.1); MONO % 3 % (0-9); NEUT # 12.2 x10^3uL (1.8-7.7); NEUT % 95 % (31-73); PLATELET COUNT 207 x10^3/uL (140-400); RED BLOOD COUNT 4.29 x10^6/uL (4.30-5.70); RED CELL DISTRIBUTION WIDTH 14.5 % (11.5-14.5); WHITE BLOOD COUNT 12.9 x10^3/uL (4.0-11.0)
[2020-08-07] MEDS ORDERED: VANCOMYCIN 1 GM in IV NORMAL SALINE 250ML 250 ML IV SCH (10:00)
[2020-08-07 10:11] LABS: ALBUMIN 1.6 g/dL (3.4-5.0); ALBUMIN/GLOBULIN RATIO 0.4 (1.0-1.7); CALCIUM 8.5 mg/dL (8.5-10.1); CREATININE 1.5 mg/dL (0.7-1.3); GFR 44.8; TOTAL BILIRUBIN 0.4 mg/dL (0.2-1.0); TOTAL PROTEIN 5.8 g/dL (6.4-8.2)
[2020-08-07 10:13] LABS: POTASSIUM 2.9 mmol/L (3.5-5.1)
[2020-08-07 10:15] VITALS: BP 83/44
--- NOTE | 2020-08-07 11:04 | RAD ---
CHEST AP ONLY History: Reason: covid+ / Spl. Instructions: / History: Comparison: August 06, 2020 Findings: Increased right lung consolidations. No pneumothorax. Scattered calcified pulmonary nodules, likely prior granulous disease. Unchanged heart size. No pneumothorax. No pleural effusion. Advanced bilateral glenohumeral DJD. Impression: 1. Increased right lung consolidations. Electronically signed by: Mason Gavin DO (08/07/2020 11:01 AM) [id number]
[2020-08-07] MEDS ORDERED: POTASSIUM CL 20MEQ IN D5W 1,000 ML IV SCH (11:30)
[2020-08-07] MEDS: VANCOMYCIN PER PHARMACY MC PRN (11:52)
--- NOTE | 2020-08-07 11:58 | NUR ---
SW contacted pt to inform her that pt is continuing to decline and will need Hospice care for while he remains in the hospital. Pt did not wish to discuss this on the phone and reports that she will be here within the hour to discuss options. NIMO passed this on to TUCKER Linkinfection control manager, to see if hospice would be able to meet pt at 1300.
[2020-08-07 14:30] VITALS: BP 116/67
--- NOTE | 2020-08-07 14:57 | NUR ---
NURSING NOTE DISCHARGE PT DISCHARGED TO BE READMITTED TO INPATIENT HOSPICE. TUCKER FRANCO
--- NOTE | 2020-08-07 16:50 | PN ---
DATE: SUBJECTIVE: The patient is resting, propped up in bed, continued to have hiccupping. He is on 5 liters of oxygen, maintaining his oxygen saturation only at 88%. He did spike his temperature yesterday to 101.1 and we did start him on IV antibiotic in the form of vancomycin as well as Zosyn. We did repeat his lab work and his white cell count was 9300. His chemistry was mostly unremarkable. His chest x-ray showed the patient has increasing right mid and lower lung opacities, which may represent an infectious inflammatory process. PHYSICAL EXAMINATION: GENERAL: When I examined him this afternoon, he was somewhat tachypneic, but there was no pallor, jaundice, cyanosis or thyromegaly. No jugular venous distention. No limb edema. VITAL SIGNS: His heart rate was 103, blood pressure was 108/64, temperature was 97.3, respiratory rate 24 and oxygen saturation was 88% on 5 liters of oxygen by nasal cannula. HEAD, EYES, EARS, NOSE AND THROAT: Showed normocephalic, atraumatic. NECK: Supple. HEART: Showed normal first and second heart sounds. No gallop or murmur. CHEST: Shows central trachea, equal bilateral chest expansion, air entry, vesicular sounds. No crepitation or rhonchi anteriorly; has bilateral basal crepitation posteriorly, more so on the right than left. I could not appreciate any rhonchi. ABDOMEN: Soft, nontender. NEUROLOGIC: The patient is demented, but moves all extremities without difficulty. His intake was 1000. Output was not recorded. LABORATORY DATA: His lab work as of this morning showed a white cell count 9300, hemoglobin 13, hematocrit 41, MCV 83 and platelet count 250,000. Serum sodium 139, potassium 3.4, chloride 105, bicarbonate 26, anion gap of 8, BUN 25, creatinine 1.2, estimated GFR was 58 mL per minute. His glucose was 113, lactic acid was 1.9, calcium was 8.8. Total bilirubin, ALT normal. AST and alkaline phosphatase are elevated. Total protein 7, albumin was 2.2 and his chest x-ray showed the patient has normal lung volumes, increased right mid and lower lung opacities, numerous bilateral calcified pulmonary granulomas and stable left apical opacities, right apical lateral lung skin fold. There is no pleural effusion or pneumothorax. Stable cardiomediastinal silhouette and great vessels. ASSESSMENT: 1. This is an 84-year-old gentleman with positive coronavirus swab from [facility]. He was mostly asymptomatic; however, he spiked his temperature yesterday 101, and his chest x-ray clearly shows worsening right mid and lower lobe infiltrate, indicating that he might be aspirating. 2. The patient has profound dementia with behavioral disturbances. 3. Recent diagnosis of spontaneous pneumothorax; however, his right lung has completely expanded. His oxygen saturation was only about 88% on 5 liters of oxygen. 4. Generalized debility. 5. Dysphagia. 6. Hypokalemia. PLAN: My plan is to continue with IV antibiotic. Continue oxygen supplementation. We will need to talk to his regarding goals of care as he is a DNR/DNI and it is unlikely that he will be able to go home and live independently. KELLI MENSAH MD DR: CALI/pasquale JOB#: [id number] / [id number]
[2020-08-08] MEDS ORDERED: VANCOMYCIN 750 MG in IV NORMAL SALINE 250ML 250 ML IV SCH (10:00)
--- NOTE | 2020-08-09 05:12 | PN ---
DATE: 08/07/2020 SUBJECTIVE: The patient is resting, slightly propped up in bed, slightly better than yesterday as he is not constantly hiccupping, slightly tachycardic, tachypneic, hypotensive. OBJECTIVE: VITAL SIGNS: His heart rate when I saw him was 112, blood pressure was 94/50, temperature was 97.1, respiratory rate was 28 and oxygen saturation was 94% on 15 liters by Ventimask. HEAD, EYES, EARS, NOSE AND THROAT: Showed normocephalic, atraumatic. NECK: Supple. HEART: Showed normal first and second heart sounds. No gallop, rub or murmur. CHEST: Shows central trachea, equal bilateral chest expansion, air entry, vesicular breath sounds. No crepitation or rhonchi. ABDOMEN: Distended, soft. NEUROLOGIC: He is sleepy, but arousable. All his cranial nerves intact. He moves extremities without difficulty. His intake is 1440, no output was recorded. LABORATORY DATA: His lab work this morning showed a serum sodium 149, potassium 2.9, chloride 113, bicarbonate 24, anion gap of 12, BUN 33, creatinine 1.5, estimated GFR was 44 mL per minute. His glucose was 170, lactic acid was 1.9, calcium was 8.5. Total bilirubin, AST, ALT, alkaline phosphatase were normal. Total protein 5.8, albumin was 1.6. His white cell count was 12,900, hemoglobin 11, hematocrit 36, MCV 84 and platelet count 207,000. His repeat chest x-ray this morning showed that the patient has increased right lung consolidation. The heart size is normal. No pneumothorax. ASSESSMENT: 1. Healthcare-associated pneumonia, probably aspiration variety. 2. Acute hypoxic respiratory failure. 3. Sepsis with leukocytosis. 4. The patient has dysphagia, most likely aspiration pneumonia. 5. Hypernatremia and hypokalemia. PLAN: My plan is to discontinue vancomycin and start him on Zyvox. I will give him another liter of normal saline and start him on D5W with 40 mEq of potassium chloride. We will scan his bladder to make sure that he is not retaining urine and we will have to discuss with the family the goals of care given that he has dementia, dysphagia and the likelihood of him returning to a normal life is ____. KELLI MENSAH MD DR: Vanita JOB#: [id number] / [id number]
== END 2020-08-07 14:58 | disposition hospice, inpatient (51) | DRG 871 ==
LOC: 1 SOUTH 06:45
PROVIDERS: ADMIT Hospitalist; ATTEND Hospitalist
DX: A41.89 Other specified sepsis (principal); U07.1 COVID-19; E43 Unspecified severe protein-calorie malnutrition; J69.0 Pneumonitis due to inhalation of food and vomit; J96.01 Acute respiratory failure with hypoxia; F01.51 Vascular dementia, unspecified severity, with behavioral disturbance; J93.83 Other pneumothorax; E87.0 Hyperosmolality and hypernatremia; E87.6 Hypokalemia; F32.9 Major depressive disorder, single episode, unspecified; F41.9 Anxiety disorder, unspecified; F63.9 Impulse disorder, unspecified; G30.9 Alzheimer's disease, unspecified; R13.10 Dysphagia, unspecified; Z87.891 Personal history of nicotine dependence; Z88.8 Allergy status to other drugs, medicaments and biological substances; Z79.899 Other long term (current) drug therapy; Z68.26 Body mass index [BMI] 26.0-26.9, adult; Z66 Do not resuscitate
CPT/HCPCS: 36415; 71045; 80053; 82803; 83605; 85025; 85027; J1100; J2543; J3230; J3370; J7040; J7042; J7050; J7030

== ENCOUNTER 2020-08-07 15:00 | Inpatient (IN) | payer OTHER ==
[~2020-08-07] VITALS: Ht 162.6 cm; Wt 70.3 kg
--- NOTE | 2020-08-07 16:20 | NUR ---
PATIENT IS 84 Y O MALE READMITTED TO THE FLOOR INPATIENT HOSPICE- [facility] FOR COMFORT CARE. PATIENT IS COVID 19 POSITIVE .ORDERS OBTAINED FROM [facility] NURSE WITH DR. MENSAH APPROVAL. TELEPHONE NUMBER FOR HOME OBTAINED AND IS [phone]. PATIENT IS CURRENTLY APPEAR COMFORTABLE IN A BED ASLEEP.
[2020-08-07] MEDS ORDERED: BISACODYL 10 MG SUPP.RECT PR PRN (16:30)
[2020-08-07] MEDS ORDERED: ACETAMINOPHEN 650 MG SUPP.RECT. PR PRN (16:30)
[2020-08-07] MEDS: SCOPOLAMINE 1.5MG PATCH. TD SCH (18:14)
[2020-08-07] MEDS: MORPHINE SULFATE 30 MG/30 ML 30 ML IV PRN (18:19)
[2020-08-07 20:36] VITALS: BP 125/63
[2020-08-08] MEDS: MORPHINE SULFATE 30 MG/30 ML 30 ML IV PRN ×7 (00:14→23:52)
--- NOTE | 2020-08-08 01:16 | NUR ---
Pt daughter, Priya Nino, left number . Attempted to call x3 at approx. [phone]; unable to reach. Addendum: 08/08/20 at 0120 by CHARI MCDONALD RN Amended: Links added.
[2020-08-08 01:34] VITALS: BP 149/62
--- NOTE | 2020-08-08 01:57 | NUR ---
Spoke with [place] [employer] sales engineer regarding morphine order. Increase morphine by 1mL/30min PRN up to 15mL/hour.
--- NOTE | 2020-08-08 16:52 | NUR ---
SPOKE TO JASSON NURSE WHO WAS PRESENT ON A FLOOR ASSESSING PATIENT. RECOMMENDED TO PLACE PATIENT ON 4 L OF 02 VIA NC , AND INCREASE MORPHINE UP TO 10 MG/HR.
--- NOTE | 2020-08-08 17:24 | HP ---
ADMIT DATE: 08/07/2020 HISTORY OF PRESENT ILLNESS: The patient is an 84-year-old gentleman with positive coronavirus swab from [facility]. He was mostly asymptomatic up until 2 days ago and he spiked his temperature up to 101. His chest x-ray showed that he has worsening right middle and lower lobe infiltrate, indicating that he is aspirating. He has profound dementia with behavioral disturbances. He was recently diagnosed with spontaneous pneumothorax of his right lung, has completely expanded and he developed acute hypoxic respiratory failure requiring 5 liters of oxygen and he became septic and despite treatment with IV antibiotic the patient continued to deteriorate and therefore we spoke to the family who opted for hospice care and he was basically admitted to inpatient hospice care. OBJECTIVE: GENERAL: When I saw him today, he was resting, propped up in bed, in no apparent distress. He was pale, but no jaundice, cyanosis or thyromegaly. No jugular venous distention. No limb edema. VITAL SIGNS: His heart rate was 79, blood pressure was 149/62, temperature was 98.2, respiratory rate was 13 and oxygen saturation was 80% on 15 liters by Venturi mask. HEAD, EYES, EARS, NOSE AND THROAT: Showed normocephalic, atraumatic. NECK: Supple. HEART: Showed normal first and second heart sounds. No gallop, rub or murmur. CHEST: Shows central trachea, equal bilateral chest expansion, air entry expands with crepitation mostly in the right side posteriorly. ABDOMEN: Scaphoid, soft, nontender. NEUROLOGIC: He was unresponsive. ASSESSMENT: 1. Acute hypoxic respiratory failure. 2. Aspiration pneumonia superimposed on COVID-19 pneumonia. 3. Profound dementia with behavioral disturbances. 4. Dysphagia. 5. Hypokalemia. 6. Hypernatremia. PLAN: Continue with comfort care in the form of morphine and Ativan. KELLI MENSAH MD DR: CALI/pasquale JOB#: [id number] / [id number]
[2020-08-08 19:04] VITALS: BP 70/45
--- NOTE | 2020-08-09 01:27 | NUR ---
Spoke with pt daughter Priya regarding condition. Pt resting comfortably, no s/s air hunger, on 10mg/hr morphine gtt.
[2020-08-09] MEDS: MORPHINE SULFATE 30 MG/30 ML 30 ML IV PRN ×5 (03:00→16:39)
--- NOTE | 2020-08-09 09:00 | NUR ---
Pt received order for scheduled Ativan q 2 hours. Pt non responsive. urine output minimal. Lings CTA. Pt having intermittent PVC's. Mottled on bottom of feet and hands. Pt hand and feet cold. Abd without mottling.
[2020-08-09] MEDS: SCOPOLAMINE 1.5MG PATCH. TD SCH (09:54)
[2020-08-09 10:33] VITALS: BP 94/57
--- NOTE | 2020-08-09 11:00 | NUR ---
spoke with . Pt condition unchanged.
--- NOTE | 2020-08-09 13:00 | NUR ---
Hospice here to see pt. Vitals per hospice nurse. Temp 100.2 AX, R19, P 133, BP 74/46. She was unable to palpate peripheral pulses or read an o2 sat. Nurse emptied 50 meals of urine and provided oral care.
--- NOTE | 2020-08-09 20:19 | NUR ---
PT assessed and noted no breath sounds and no heartbeat by telemetry, auscultation and palpation. Second nurse verification performed by Neal Flores. Time of noted at 1937. Addendum: 08/09/20 at 2024 by LANDY PRYOR RN RN Contacted Dr. Rodriges @2004, daughter Priya @2008, @2010, home @2015, and [facility] 2010.
--- NOTE | 2020-08-09 20:56 | PN ---
DATE: 08/09/2020 SUBJECTIVE: The patient is resting, slightly propped up in bed, seems to be comfortable. He is unresponsive, pale with mottling of his extremities. PHYSICAL EXAMINATION: VITAL SIGNS: His heart rate was 91, blood pressure was 94/57, temperature was 98.9, respiratory rate was 15 and oxygen saturation was 95% on 15 liters by Venturi mask. The rest of clinical exam is stable. ASSESSMENT: 1. COVID-19 pneumonia with superimposed aspiration pneumonia. 2. Acute hypoxic respiratory failure. 3. Profound dementia with behavioral disturbances. 4. Dysphagia. 5. Hypokalemia. 6. Hypernatremia. PLAN: To continue with comfort care in the form of morphine and Ativan. KELLI MENSAH MD DR: CALI/pasquale JOB#: [id number] / [id number]
== END 2020-08-09 19:37 | DRG 177 ==
LOC: 1 SOUTH 15:00
PROVIDERS: ADMIT Internal Medicine; ATTEND Internal Medicine
DX: U07.1 COVID-19 (principal); J12.89 Other viral pneumonia; J96.01 Acute respiratory failure with hypoxia; J69.0 Pneumonitis due to inhalation of food and vomit; E87.0 Hyperosmolality and hypernatremia; F03.91 Unspecified dementia, unspecified severity, with behavioral disturbance; E87.6 Hypokalemia; R13.10 Dysphagia, unspecified; Z51.5 Encounter for palliative care
CPT/HCPCS: J2060; J2270; Q5005